=== PATIENT | female | born 1970 | race Caucasian/White ===

== ENCOUNTER → 2019-09-15 11:47 | Outpatient (CLI) | payer OTHER, SELFPAY ==
--- NOTE | 2019-09-15 | DI.RAD.S_ITS ---
PROCEDURE: XR LUMBAR SPINE 2-3V INDICATIONS: Low back pain TECHNIQUE: 3 views of the lumbar spine were acquired. COMPARISON: None. FINDINGS: Bones: No fracture or focal osseous destruction. Mild dextrocurvature. Trace retrolisthesis of L3 on L4 and L4-L5. Multilevel degenerative endplate sclerosis and spurring. Diffuse facet arthropathy. Mild diffuse narrowing of the lumbar disc spaces Soft tissues: Overlying bowel gas pattern is normal. No suspicious soft tissue calcifications. IMPRESSION: 8 Mild lumbar spondylosis and facet arthropathy. Mild dextrocurvature Dictated by: Bean Zabala M.D. on 09/15/2019 at 16:05 Approved by: Bean Zabala M.D. on 09/15/2019 at 16:08
== END ==
PROVIDERS: PCP Nurse Practitioner Gerontology; Visit Provider Acupuncturist
DX: M54.5 Low back pain (principal); M47.816 Spondylosis without myelopathy or radiculopathy, lumbar region
CPT/HCPCS: 72100

== ENCOUNTER → 2020-07-07 08:15 | Outpatient (CLI) | payer OTHER, SELFPAY ==
[2020-07-07 10:24] LABS: Add Manual Diff / Slide Review NO; Basophils Absolute Auto 0 /uL (0-100); Basophils Percent Auto 0.6 % (0-2); Eosinophils Absolute Auto 200 /uL (0-450); Eosinophils Percent Auto 3.3 % (2-4); Hematocrit 37.4 % (36-46); Hemoglobin 12.6 g/dL (12.0-16.0); Lymphocytes Absolute Auto 2200 /uL (1100-4500); Lymphocytes Percent Auto 39.8 % (25-40); Mean Corpuscular HGB Conc 33.6 % (30-36); Mean Corpuscular Hemoglobin 29.4 PG (26-34); Mean Corpuscular Volume 87.6 fL (80-100); Monocytes Absolute Auto 500 /uL (0-900); Monocytes Percent Auto 8.6 % (3-14); Neutrophils Absolute Auto 2700 /uL (1500-7000); Neutrophils Percent Auto 47.7 % (50-75); Platelet Count 289 X10^3/uL (150-400); Red Blood Cell Count 4.27 X10^6/uL (4.0-5.2); Red Cell Distribution Width 13.9 % (11.6-14.8); White Blood Cell Count 5.6 X10^3/uL (4.5-11.0)
[2020-07-07 10:34] LABS: Alanine Aminotransferase 31 IU/L (<35); Albumin 4.5 g/dL (3.5-5.0); Albumin Globulin Ratio 1.4 (1.0-2.8); Alkaline Phosphatase 96 U/L (38-126); Aspartate Aminotransferase 41 IU/L (14-36); BUN Creatinine Ratio 21.6 (6-22); Bilirubin Total 0.4 mg/dL (0.2-1.3); Blood Urea Nitrogen 22 mg/dL (7-17); Calcium 9.8 mg/dL (8.4-10.2); Carbon Dioxide 32 mmol/L (22-32); Chloride 101 mmol/L (98-107); Cholesterol 230 mg/dL (140-199); Estimated Glomerular Filt Rate 57.1 mL/min (>60); Globulin 3.3 g/dL (1.7-4.1); Glucose 90 mg/dL (70-100); HDL Cholesterol 42 mg/dL (40-60); HEMOLYSIS < 15 (0-50); LDL Cholesterol Calculated 156 mg/dL (<100); Potassium 3.9 mmol/L (3.4-5.1); Sodium 139 mmol/L (137-145); Total Protein 7.8 g/dL (6.3-8.2); Triglycerides 162 mg/dL (35-150)
[2020-07-07 11:12] LABS: Thyroid Stimulating Hormone 2.49 uIU/mL (0.47-4.68)
== END ==
PROVIDERS: PCP Nurse Practitioner Family; Referring Provider Nurse Practitioner Family; Visit Provider Nurse Practitioner Family
DX: Z13.6 Encounter for screening for cardiovascular disorders (principal); E06.3 Autoimmune thyroiditis; Z85.72 Personal history of non-Hodgkin lymphomas
CPT/HCPCS: 36415; 80053; 80061; 84443; 85025

== ENCOUNTER → 2020-09-28 10:31 | Outpatient (CLI) | payer OTHER, SELFPAY ==
[2020-09-28 11:53] LABS: Cholesterol 154 mg/dL (140-199); HDL Cholesterol 50 mg/dL (40-60); LDL Cholesterol Calculated 88 mg/dL (<100); Triglycerides 81 mg/dL (35-150)
== END ==
PROVIDERS: PCP Nurse Practitioner Family; Referring Provider Nurse Practitioner Family; Visit Provider Nurse Practitioner Family
DX: Z13.6 Encounter for screening for cardiovascular disorders (principal); E78.2 Mixed hyperlipidemia
CPT/HCPCS: 36415; 80061

== ENCOUNTER → 2021-01-16 12:40 | Outpatient (CLI) | payer OTHER, SELFPAY ==
[2021-01-16 13:49] LABS: Alanine Aminotransferase 23 IU/L (<35); Albumin 4.2 g/dL (3.5-5.0); Albumin Globulin Ratio 1.4 (1.0-2.8); Alkaline Phosphatase 104 U/L (38-126); Aspartate Aminotransferase 25 IU/L (14-36); Bilirubin Total 0.2 mg/dL (0.2-1.3); Blood Urea Nitrogen 16 mg/dL (7-17); Calcium 9.6 mg/dL (8.4-10.2); Carbon Dioxide 34 mmol/L (22-32); Chloride 103 mmol/L (98-107); Cholesterol 151 mg/dL (140-199); Estimated Glomerular Filt Rate > 60.0 mL/min (>60); Glucose 94 mg/dL (70-100); HDL Cholesterol 48 mg/dL (40-60); HEMOLYSIS < 15 (0-50); LDL Cholesterol Calculated 86 mg/dL (<100); Potassium 4.2 mmol/L (3.4-5.1); Sodium 138 mmol/L (137-145); Total Protein 7.2 g/dL (6.3-8.2); Triglycerides 85 mg/dL (35-150)
[2021-01-16 14:17] LABS: Thyroid Stimulating Hormone 1.96 uIU/mL (0.47-4.68)
== END ==
PROVIDERS: PCP Nurse Practitioner Family; Referring Provider Nurse Practitioner Family; Visit Provider Nurse Practitioner Family
DX: E06.3 Autoimmune thyroiditis (principal)
CPT/HCPCS: 36415; 80053; 80061; 84443

== ENCOUNTER → 2021-05-16 09:35 | Outpatient (CLI) | payer OTHER, SELFPAY ==
[2021-05-16 11:58] LABS: Hepatitis B Surface Antigen NEGATIVE s/c (NEGATIVE)
[2021-05-16 12:04] LABS: Urine N gonorrhoeae NOT DETECTED
[2021-05-16 12:19] LABS: Urine Chlamydia NOT DETECTED
[2021-05-16 12:38] LABS: HIV 1 & 2 Ab/Ag 4th Gen Combo NEGATIVE (NEGATIVE); Hep C Virus Ab w/Reflex Quant NEGATIVE s/c (NEGATIVE)
[2021-05-17 09:49] LABS: RPR Screen Non Reactive (Non Reactive)
== END ==
PROVIDERS: PCP Nurse Practitioner Family; Referring Provider Nurse Practitioner Family; Visit Provider Nurse Practitioner Family
DX: Z20.2 Contact with and (suspected) exposure to infections with a predominantly sexual mode of transmission (principal)
CPT/HCPCS: 36415; 86592; 86695; 86696; 86803; 87340; 87389; 87491; 87591

== ENCOUNTER → 2021-06-01 08:50 | Outpatient (CLI) | payer OTHER, SELFPAY ==
--- NOTE | 2021-06-01 08:51 | DI.MG.S_ITS ---
BILATERAL DIGITAL SCREENING MAMMOGRAM 3D/2D WITH CAD: 06/01/2021 CLINICAL: Routine screening. Family history of breast cancer. Comparison is made to exams dated: 03/27/2017 mammogram, 10/25/2017 mammogram, 05/16/2018 mammogram, and 06/11/2019 mammogram - [facility]. There are scattered fibroglandular elements in both breasts. Current study was also evaluated with a Computer Aided Detection (CAD) system. There is new cluster of grouped pleomorphic calcifications in the left breast posterior depth inferior region seen on the mediolateral oblique view only. No other significant masses, calcifications, or other findings are seen in either breast. IMPRESSION: INCOMPLETE: NEEDS ADDITIONAL IMAGING EVALUATION The new cluster of grouped pleomorphic calcifications in the left breast are indeterminate. Additional views with possible ultrasound are recommended. Note that the calcifications are seen on the first david slice and therefore could be related to a skin lesion. Recommend marking any skin lesion in the region before diagnostic mammogram acquisition. This exam was interpreted at Station ID: [id number]. NOTE: For mammograms, a report in lay terms will be sent to the patient. Approximately 15% of breast malignancies will not be visualized mammographically. In the management of a palpable breast mass, a negative mammogram must not discourage biopsy of a clinically suspicious lesion. Electronically Signed By: Zachary Schulte acr/:06/01/2021 09:33:41 letter sent: Additional Imaging Needed ACR BI-RADS Category 0: Incomplete 3340F
== END ==
PROVIDERS: PCP Nurse Practitioner Family; Referring Provider Nurse Practitioner Family; Visit Provider Nurse Practitioner Family
DX: Z12.31 Encounter for screening mammogram for malignant neoplasm of breast (principal); Z80.3 Family history of malignant neoplasm of breast
CPT/HCPCS: 77063; 77067

== ENCOUNTER → 2021-06-20 12:42 | Outpatient (CLI) | payer OTHER, SELFPAY ==
--- NOTE | 2021-06-20 12:43 | DI.MG.S_ITS ---
UNILATERAL LEFT DIGITAL DIAGNOSTIC MAMMOGRAM 3D/2D WITH ADDITIONAL VIEWS: 06/20/2021 CLINICAL: Additional evaluation requested from prior study. Comparison is made to exams dated: 06/01/2021 mammogram - [facility], 06/11/2019 mammogram, and 05/16/2018 mammogram - [facility]. There are scattered fibroglandular elements in left breast. Redemonstration of previously described grouped coarse calcifications in the left breast posterior depth inferior region seen on the mediolateral oblique view only. These were noted on prior imaging of the left breast greater than two years prior and appear stable. They are likely skin calcifications. No other significant masses or calcifications are seen in the breast. IMPRESSION: BENIGN There is no mammographic evidence of malignancy. A 1 year screening mammogram is recommended. Findings and recommendations were conveyed to the patient during today's evaluation. This exam was interpreted at Station ID: [id number]. NOTE: For mammograms, a report in lay terms will be sent to the patient. Approximately 15% of breast malignancies will not be visualized mammographically. In the management of a palpable breast mass, a negative mammogram must not discourage biopsy of a clinically suspicious lesion. Electronically Signed By: Yahir Otoole M.D. aty/:06/20/2021 13:34:28 letter sent: Normal Exam ACR BI-RADS Category 2: Benign Finding(s) 3342F
== END ==
PROVIDERS: PCP Nurse Practitioner Family; Referring Provider Nurse Practitioner Family; Visit Provider Nurse Practitioner Family
DX: R92.8 Other abnormal and inconclusive findings on diagnostic imaging of breast (principal)
CPT/HCPCS: 77065; G0279

== ENCOUNTER → 2021-08-30 15:16 | Outpatient (CLI) | payer OTHER, SELFPAY ==
--- NOTE | 2021-08-30 15:19 | DI.RAD.S_ITS ---
PROCEDURE: XR HIP W PEL IF DONE GRACIELA MIN 4V INDICATIONS: Bilateral hip pain TECHNIQUE: AP pelvis with lateral view(s) of the bilateral hip(s). COMPARISON: None. FINDINGS: No significant degenerative changes of the hips or sacroiliac joints. No suspicious lytic or blastic osseous lesion. No acute osseous finding. Regional soft tissues unremarkable. Moderate the large stool burden noted. IMPRESSION: No bone abnormality to explain hip pain. Consider an MRI for further evaluation. Moderate to large stool burden suggests constipation. Dictated by: Rommel Suarez M.D. on 08/30/2021 at 16:24 Approved by: Rommel Suarez M.D. on 08/30/2021 at 16:26
[2021-08-30 16:40] LABS: Hematocrit 34.8 % (36-46); Hemoglobin 11.4 g/dL (12.0-16.0); Mean Corpuscular HGB Conc 32.8 % (30-36); Mean Corpuscular Hemoglobin 28.7 PG (26-34); Mean Corpuscular Volume 87.6 fL (80-100); Platelet Count 264 X10^3/uL (150-400); Red Blood Cell Count 3.97 X10^6/uL (4.0-5.2); Red Cell Distribution Width 14.9 % (11.6-14.8)
[2021-08-30 17:00] LABS: Alanine Aminotransferase 28 IU/L (<35); Albumin 4.1 g/dL (3.5-5.0); Albumin Globulin Ratio 1.5 (1.0-2.8); Alkaline Phosphatase 73 U/L (38-126); Aspartate Aminotransferase 32 IU/L (14-36); BUN Creatinine Ratio 18.9 (6-22); Bilirubin Total 0.2 mg/dL (0.2-1.3); Blood Urea Nitrogen 18 mg/dL (7-17); Calcium 9.5 mg/dL (8.4-10.2); Carbon Dioxide 34 mmol/L (22-32); Chloride 103 mmol/L (98-107); Estimated Glomerular Filt Rate > 60.0 mL/min (>60); Globulin 2.8 g/dL (1.7-4.1); Glucose 94 mg/dL (70-100); HEMOLYSIS < 15 (0-50); Potassium 3.7 mmol/L (3.4-5.1); Sodium 143 mmol/L (137-145); Total Protein 6.9 g/dL (6.3-8.2)
[2021-08-30 17:13] LABS: Free T4, Direct Thyroxine 1.01 ng/dL (0.78-2.19)
[2021-08-30 17:27] LABS: Thyroid Stimulating Hormone 3.62 uIU/mL (0.47-4.68)
[2021-08-30 17:39] LABS: C-Reactive Protein Quant 1.1 mg/dL (<1.0)
[2021-08-30 17:48] LABS: Erythrocyte Sedimentation Rate 26 MM/HR (0-20)
== END ==
PROVIDERS: PCP Nurse Practitioner Family; Referring Provider Nurse Practitioner Family; Visit Provider Nurse Practitioner Family
DX: R00.2 Palpitations (principal); Z00.00 Encounter for general adult medical examination without abnormal findings; G45.3 Amaurosis fugax
CPT/HCPCS: 36415; 73522; 80053; 84439; 84443; 85027; 85651; 86140

== ENCOUNTER → 2021-09-11 08:15 | Outpatient (CLI) | payer OTHER, SELFPAY ==
[2021-09-11 11:30] LABS: COVID19 -Nasal RAPID Negative (Negative)
== END ==
PROVIDERS: PCP Nurse Practitioner Family; Visit Provider Physician Assistant
DX: Z01.812 Encounter for preprocedural laboratory examination (principal); Z20.822 Contact with and (suspected) exposure to COVID-19
CPT/HCPCS: 87635; C9803

== ENCOUNTER → 2021-09-14 13:34 | Outpatient (CLI) | payer OTHER, SELFPAY ==
--- NOTE | 2021-10-04 11:17 | PM.CARDMON.1 ---
Stove Mounter Report Referral & Results Date Patient Seen: 09/14/21 Requesting provider: Ron Cox Indication: Palpitations Duration of monitoring (days): 7 Diary information: There were 6 patient triggered events and 10 patient diary entries Patient triggered events were associated variably with sinus rhythm and PVCs Patient diary events were associated variably with (within 45 seconds) sinus rhythm, PACs, PVCs, and ventricular trigeminy Data: Minimum heart rate identified was 54 beats per minute at 02:54 on 09/18/2021 Maximum heart rate was 164 beats per minute at 15:48 on 09/19/2021 Less than 1% of identified beats were ventricular or supraventricular ectopic in origin, which would classify them as rare. There was 1 run of possible monomorphic ventricular tachycardia verses an accelerated idioventricular rhythm that consisted of 5 beats at a rate of 110 beats per minute Impression: Essentially normal 7 day air sampling and monitoring Rare PACs and PVCs without clear correlation with patient reported symptoms Single run of probable idioventricular rhythm as above Clinical correlation suggested
== END ==
PROVIDERS: PCP Nurse Practitioner Family; Referring Provider Nurse Practitioner Family; Visit Provider Nurse Practitioner Family
DX: R00.2 Palpitations (principal)
CPT/HCPCS: 93242; 93244

== ENCOUNTER → 2021-09-18 11:12 | Outpatient (CLI) | payer OTHER, SELFPAY ==
[2021-09-18 16:18] LABS: COVID19 -Nasal RAPID Negative (Negative)
== END ==
PROVIDERS: PCP Nurse Practitioner Family; Visit Provider Nurse Practitioner Family
DX: Z20.822 Contact with and (suspected) exposure to COVID-19 (principal); Z01.812 Encounter for preprocedural laboratory examination
CPT/HCPCS: 87635; C9803

== ENCOUNTER → 2021-09-19 14:47 | Outpatient (CLI) | payer OTHER, SELFPAY ==
--- NOTE | 2021-09-19 17:50 | DI.NM.S_ITS ---
DATE OF SERVICE: PROCEDURE: Exercise stress test. DATE OF STUDY: 09/19/2021 INDICATIONS: Palpitations. EXERCISE STRESS TEST: The patient underwent exercise stress test under the supervision of an attending staff. She walked on Joe protocol for 6 minutes and 0 seconds, achieved 98 percent of target heart rate with normal blood pressure response. Baseline blood pressure 132/90 mmHg. Peak blood pressure 170/90 mmHg. Maximum heart rate 164 beats per minute. The patient achieved 6.1 METS of workload and functional aerobic impairment positive 21 percent. The patient had mild dull chest discomfort as well as off and on sharp chest discomfort which lasted about 10 seconds. Resting EKG revealed sinus rhythm, possible LVH, T-wave inversion in lateral leads. During stress, no convincing new ischemic changes seen. No significant arrhythmias seen. CONCLUSION: Exercise stress test is negative for inducible ischemia. Normal hemodynamic response. Diminished exercise capacity. Functional aerobic impairment positive 21 percent. No significant arrhythmias seen. Atypical chest discomfort during exercise. Clinical correlation is recommended. Irma Delaney - KEVEN/nazanin/emma doc#: [id number]/job#: [id number] dd: 09/19/2021 17:21:00 dt: 09/19/2021 17:31:00 DICTATING MD/COPIES TO: Alfredo Wilde MD COPIES MNE: MAXIMO;
== END ==
PROVIDERS: PCP Nurse Practitioner Family; Referring Provider Nurse Practitioner Family; Visit Provider Nurse Practitioner Family
DX: R00.2 Palpitations (principal)
CPT/HCPCS: 93017

== ENCOUNTER → 2021-09-29 13:33 | Outpatient (CLI) | payer OTHER, SELFPAY ==
--- NOTE | 2021-09-29 13:35 | DI.MRI.S_ITS ---
PROCEDURE: MR HEAD/BRAIN WO CON INDICATIONS: intermittent blindness with other intraocular changes TECHNIQUE: Non-contrast axial T1 spin echo, axial T2 fast spin echo, sagittal and axial FLAIR, coronal T2 fast spin echo, axial gradient echo, axial diffusion and ADC through the brain. COMPARISON: None. FINDINGS: Image quality: Excellent. CSF spaces: Ventricles appear symmetric in size and shape. Basal cisterns are patent. No extra-axial fluid collections. Brain: No intracranial bleeds or mass effects. There is cerebral volume loss for age. Few scattered periventricular and deep white matter chronic small vessel ischemic changes. Brainstem appears normal. Diffusion-weighted images show no acute ischemic insults. No chronic ischemic insults. Normal intravascular flow voids are present. Skull and face: Calvarial bone marrow is normal in signal. Orbits are normal. Sinuses: Sinuses and mastoids are clear. IMPRESSION: No acute intracranial signal abnormality. No evidence of acute ischemia. Few small white matter changes, probably represent chronic microvascular ischemic disease, versus statistically less likely demyelination or other infectious, inflammatory, neurodegenerative etiology, technically nonspecific. Dictated by: Bean Zabala M.D. on 09/29/2021 at 15:23 Approved by: Bean Zabala M.D. on 09/29/2021 at 15:33
== END ==
PROVIDERS: PCP Nurse Practitioner Family; Referring Provider Nurse Practitioner Family; Visit Provider Nurse Practitioner Family
DX: G45.3 Amaurosis fugax (principal); H35.00 Unspecified background retinopathy
CPT/HCPCS: 70551

== ENCOUNTER → 2021-11-23 11:47 | Outpatient (CLI) | payer OTHER, MEDICAID, SELFPAY ==
--- NOTE | 2021-11-23 11:49 | DI.US.S_ITS ---
PROCEDURE: US CAROTID DOPPLER BI INDICATIONS: AMAUROSIS FUGAX TECHNIQUE: Color and pulse Doppler interrogation was performed of both carotid systems, with image documentation and velocity measurements. COMPARISON: None. FINDINGS: Stenosis calculations are based on SRU (Society of Radiologists in Ultrasound) criteria. Right side: Brachial blood pressure: 144/94 mm Hg. Common carotid artery peak systolic velocity: 125 cm/sec. Internal carotid artery peak systolic velocity: 96 cm/sec. Internal carotid artery end diastolic velocity: 34 cm/sec. External carotid artery peak systolic velocity: 66 cm/sec. ICA/CCA peak systolic ratio: 0.8 . Delacruz scale imaging description: Mild scattered plaque. Solid right thyroid nodule incidentally noted. Percent internal carotid artery stenosis: Less than 50% . Vertebral artery: Flow direction is antegrade. Left side: Brachial blood pressure: 150/100 mm Hg. Common carotid artery peak systolic velocity: 95 cm/sec. Internal carotid artery peak systolic velocity: 94 cm/sec. Internal carotid artery end diastolic velocity: 26 cm/sec. External carotid artery peak systolic velocity: 72 cm/sec. ICA/CCA peak systolic ratio: 1.1 . Delacruz scale imaging description: Moderate scattered plaque. Percent internal carotid artery stenosis: Less than 50% . Vertebral artery: Flow direction is antegrade. IMPRESSION: 1. Less than 50% bilateral internal carotid artery stenosis. 2. Right thyroid nodule incidentally noted. When clinically feasible, recommend formal thyroid ultrasound for further characterization. 3. Hypertension at time of examination. Dictated by: Yehuda Velazquez [facility] Interpreted: Iam Melara MD on 11/23/2021 at 12:35 Transcribed by: [place] on 11/23/2021 at 12:38 Approved by: Iam Melara M.D. on 11/23/2021 at 12:54
== END ==
PROVIDERS: Family Provider Nurse Practitioner Family; PCP Nurse Practitioner Family; Referring Provider Nurse Practitioner Family; Visit Provider Nurse Practitioner Family
DX: G45.3 Amaurosis fugax (principal); E04.1 Nontoxic single thyroid nodule
CPT/HCPCS: 93880

== ENCOUNTER → 2021-12-28 09:02 | Outpatient (CLI) | payer OTHER, MEDICAID, SELFPAY ==
--- NOTE | 2021-12-28 09:03 | DI.US.S_ITS ---
PROCEDURE: US THYROID INDICATIONS: NODULE TECHNIQUE: Real-time scanning was performed of the thyroid gland, with image documentation. COMPARISON: [facility], US, US CAROTID DOPPLER , 11/23/2021, 12:03. FINDINGS: Right: Thyroid lobe measures 4.8 x 2 x 1.5 cm, and is homogeneous in echotexture. Left: Thyroid lobe measures 4 x 1.6 x 1.4 cm, and is homogenous in echotexture. Isthmus: 0.2 cm thick. Nodule number: 1 Location: Left mid posterior Size: 1.1 x 1 x 0.7 cm. Composition: Mixed solid and cystic Echogenicity: Hypoechoic Shape: wider than tall. Margins: Smooth Echogenic foci: None Total points: 3 ACR TI-RADS category: TR 3, mildly suspicious Nodule number: 2 Location: Right mid Size: 1.9 x 1.5 x 1.3 cm. Composition: Solid Echogenicity: Isoechoic Shape: wider than tall. Margins: Ill-defined Echogenic foci: None Total points: 3 ACR TI-RADS category: TR 3, mildly suspicious Nodule number: 3 Location: Right mid anterior Size: 0.7 x 0.6 x 0.4 cm. Composition: Solid Echogenicity: Hypoechoic Shape: wider than tall. Margins: Smooth Echogenic foci: None Total points: 4 ACR TI-RADS category: TR 4, moderately suspicious IMPRESSION: Right mid thyroid nodule measuring 1.9 cm. TR 3, mildly suspicious. Recommend follow-up thyroid ultrasound in 1 year. ACR TI-RADS definitions and recommendations: TI-RADS 1 (benign): 0 points. FNA not needed. TI-RADS 2 (not suspicious): 2 points. FNA not needed. TI-RADS 3 (mildly suspicious): 3 points. * FNA if 2.5 cm or larger, follow up if 1.5 cm or larger (at 1, 3, and 5 years). TI-RADS 4 (moderately suspicious): 4-6 points. * FNA if 1.5 cm or larger, follow up if 1 cm or larger (at 1, 2, 3, and 5 years). TI-RADS 5 (highly suspicious): 7 points or more. * FNA if 1 cm or larger, follow up if 0.5 cm or larger (every year for 5 years). Dictated by: César Khoury M.D. on 12/28/2021 at 10:13 Approved by: César Khoury M.D. on 12/28/2021 at 10:29
== END ==
PROVIDERS: Family Provider Nurse Practitioner Family; PCP Nurse Practitioner Family; Referring Provider Nurse Practitioner Family; Visit Provider Nurse Practitioner Family
DX: E04.2 Nontoxic multinodular goiter (principal)
CPT/HCPCS: 76536

== ENCOUNTER → 2022-01-08 11:04 | Outpatient (CLI) | payer OTHER, MEDICAID, SELFPAY ==
[2022-01-08 11:20] LABS: Hematocrit 32.7 % (36-46); Hemoglobin 10.9 g/dL (12.0-16.0); Mean Corpuscular HGB Conc 33.4 % (30-36); Mean Corpuscular Hemoglobin 28.1 PG (26-34); Platelet Count 275 X10^3/uL (150-400); Red Blood Cell Count 3.89 X10^6/uL (4.0-5.2); Red Cell Distribution Width 14.4 % (11.6-14.8)
[2022-01-08 11:49] LABS: Alanine Aminotransferase 30 IU/L (<35); Albumin 4.2 g/dL (3.5-5.0); Albumin Globulin Ratio 1.4 (1.0-2.8); Alkaline Phosphatase 75 U/L (38-126); Aspartate Aminotransferase 30 IU/L (14-36); Bilirubin Total 0.4 mg/dL (0.2-1.3); Blood Urea Nitrogen 18 mg/dL (7-17); Calcium 9.6 mg/dL (8.4-10.2); Carbon Dioxide 32 mmol/L (22-32); Chloride 105 mmol/L (98-107); Cholesterol 137 mg/dL (140-199); Estimated Glomerular Filt Rate 58.2 mL/min (>60); Globulin 2.9 g/dL (1.7-4.1); Glucose 96 mg/dL (70-100); HDL Cholesterol 50 mg/dL (40-60); HEMOLYSIS < 15 (0-50); LDL Cholesterol Calculated 72 mg/dL (<100); Potassium 3.8 mmol/L (3.4-5.1); Sodium 141 mmol/L (137-145); Total Protein 7.1 g/dL (6.3-8.2); Triglycerides 77 mg/dL (35-150)
[2022-01-08 13:01] LABS: Free T4, Direct Thyroxine 1.22 ng/dL (0.78-2.19)
[2022-01-08 13:15] LABS: Thyroid Stimulating Hormone 1.64 uIU/mL (0.47-4.68)
== END ==
PROVIDERS: Family Provider Nurse Practitioner Family; PCP Nurse Practitioner Family; Referring Provider Nurse Practitioner Family; Visit Provider Nurse Practitioner Family
DX: E06.3 Autoimmune thyroiditis (principal); E78.2 Mixed hyperlipidemia; F32.1 Major depressive disorder, single episode, moderate; F41.9 Anxiety disorder, unspecified; G45.3 Amaurosis fugax; Z00.00 Encounter for general adult medical examination without abnormal findings; Z13.6 Encounter for screening for cardiovascular disorders
CPT/HCPCS: 36415; 80053; 80061; 84439; 84443; 85027

== ENCOUNTER 2022-01-08 11:15 | Outpatient (RCR) | payer OTHER, MEDICAID, SELFPAY ==
--- NOTE | 2021-10-09 16:35 | PT.OIE ---
Current Diagnoses Pain in unspecified hip (10/09/21) Postural kyphosis, thoracic region (10/09/21) Muscle weakness (generalized) (10/09/21) Other abnormalities of gait and mobility (10/09/21) Past Medical History (Last Updated 09/13/21 @ 13:51 by NAVID Castro) Acquired autoimmune hypothyroidism (2017) Allergies Amaurosis fugax, both eyes (08/2020) Anxiety (~1999) Autism Cataracts, bilateral (~1998) Chronic back pain (~2009) Deep vein thrombosis (~1992) Depression (2009) Eczema (~2017) Encounter for routine gynecological examination (05/16/21) Encounter for wellness examination in adult (05/16/21) Hip pain History of biopsy (~1993) History of laparoscopy (~1992) History of non-Hodgkin's lymphoma (1994) History of suicide attempt (2009) HSV-2 seropositive Intermittent palpitations (07/2021) Intra-ventricular conduction delay (08/2021) Lymphedema Lymphoma (~1995) Menopause (~1995) Mixed hyperlipidemia (06/2020) Possible exposure to STD PTSD (post-traumatic stress disorder) (~1996) Scoliosis (~1971) Vision changes (08/2020) Past Surgical History (Last Updated 01/14/21 @ 19:17 by Jessenia Edwards) Anesthesia History of biopsy (~1993) History of laparoscopy (~1992) Visit Care Team Role Provider Type NAVID Castro Attending Provider 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 Family Provider Primary Care Provider Referring Provider Specialty: Family Practice Address: [address] [place] [address] Email: [email or web address] Physical Therapy Initial Evaluation PT-OP-A Visit Information Start: 10/09/21 12:17 Freq: Status: Active Protocol: Document 10/09/21 13:35 LRN (Rec: 10/09/21 17:43 LRN [id number]) Out-Patient Physical Therapy Visit Information Visit Information Visit Type Initial Evaluation Visit Start Time 13:35 Visit Stop Time 14:26 Total Visit Minutes 51 Visit Number 1 Evaluation Information Evaluation Date 10/09/21 Precautions Precautions Possible tape allergy. 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 Pt has residual back pain from chemo & radiation therapy. Medication controlled depression/anxiety, hypothyroid, arthritis of the knees. PT-OP-B Current Condition Start: 10/09/21 12:17 Freq: Status: Active Protocol: Document 10/09/21 13:35 LRN (Rec: 10/09/21 17:43 LRN [id number]) Current Condition History of Current Condition Onset Date 08/24/21 (end of Jul) Current Complaints Pain in both hips after repetitive activity and long walks. History of Current Condition When walking (2 miles 3 days/ week), both hips start hurting . With sit rest the pain goes away. 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 Had lymphadema therapy in [place] for it (while in college). Prior Treatments and Tests X-ray, pt states it was negative for bursitis. 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 Brain scan was negative for MS . Has done a heart monitor assessment, and treadmill stress test. Appt 11/06/21 with [facility] (Dr. Martins from [facility]). 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 PMH: Breast reduction therapy 8yrs ago, Arthritis in knees, Anxiety/Depression controlled by meds, Hypothyroidism. Non-Hodgkins Lymphoma in L groin [id number]. Treatment Goals Patient/Caregiver Goals Pt goal is to manage the pain or get rid of it, do things to help it. 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 Prior Functional Status Baseline Function- ADL's Independent Baseline Function- Mobility Independent Baseline Function- Gait For past 3 yrs walked 2 miles without pain. Baseline Function- Other Wears compression stockings during walk to control onset of numbness in the L foot ( location of Lymphedema and cancer in groin). Current Functional Impairments (Reported) Functional Limitations- ADL's Onset of bilateral hip pain with laundry, cleaning, static standing > 20' Functional Limitations- Mobility/Gait Can walk 3/4 mile on flat ground before bilateral hip pain starts (indicating pain across the low back at the sacral level). Functional Limitations- Recreation/ Pain with gentle yoga Hobbies Functional Limitations- Other Pain with laundry (reaching up /down for clothes), volunteering 2 hours for [employer] ( sweeping and picking up objects). Personal Factors Other Personal Factors That May Effect Has daughter who is Autistic, Therapy/Recovery and is her caregiver, requiring housecleaning and attendance sitting with her. Lives in [place] and has onset of back pain by the time she drives to [employer]. L foot sensation impaired (in area of lymphedema) since tumor wrapped around artery in L groin. Arthritis in knees. PT-OP-C Subjective Start: 10/09/21 12:17 Freq: Status: Active Protocol: Document 10/09/21 13:35 LRN (Rec: 10/09/21 17:43 LRN [id number]) Patient Questionnaires Lower Extremity Functional Scale LEFS Score 50 LEFS Impairment 20 to 39% Impaired (Score 48- 62) OP-PT Pain Assessment Pain Assessment Grid Paper Pain Assessment Grid Completed Yes Location Low back Pain Location Details Across low back at sacral level Intensity 8 Scale Used Numeric (0 - 10) Description Pressure,Sharp Description- Other Pn 2-8, pain constant at 2/10 Frequency Constant Pain Aggravating Factors Activity,Standing,Bending, Lifting Pain Alleviating Factors Heat,Medication,Lying Supine, Sitting PT-OP-G Mobility & Gait Start: 10/09/21 12:17 Freq: Status: Active Protocol: Document 10/09/21 13:35 LRN (Rec: 10/09/21 17:43 LRN [id number]) OP Gait Assessment Gait Gait Assistance Required: Independent Able to Maintain Weight Bearing Status Yes During Gait Assistive Devices Assistive Device None Comments Gait Comments Pt notes normal gait. PT-OP-H Neuro Start: 10/09/21 12:17 Freq: Status: Active Protocol: Document 10/09/21 13:35 LRN (Rec: 10/09/21 17:43 LRN [id number]) Sensation Evaluation Gross Sensation Gross Sensation WNL Location Details Left Foot Light Touch Impaired Sharp/Dull Intact/Normal Deep Pressure Intact/Normal Hot/Cold Intact/Normal PT-OP-J Posture/Palpation/Skin Start: 10/09/21 12:17 Freq: Status: Active Protocol: Document 10/09/21 13:35 LRN (Rec: 10/09/21 17:43 LRN [id number]) Posture Evaluation Position Standing Evaluation View all positions Head/C-Spine Posture Forward Head T-Spine Posture Increased Kyphosis Shoulder Posture (L) Elevated Pelvis Posture (L) Iliac Crest Superior Ankle/Foot Posture (L) Forefoot Eversion,(R) Forefoot Eversion Comments Posture Comments Varus of lower legs, slight scoliosis towards bottom of spine (apex is left in upper curve, right in lower curve, reversal at T/L junction). Palpation Assessment Location SIJ Palpation Location R side - decreased mobility for PA and inferior glide. Palpation Findings Soft Tissue Tightness, Tenderness PT-OP-K Range of Motion Start: 10/09/21 12:17 Freq: Status: Active Protocol: Document 10/09/21 13:35 LRN (Rec: 10/09/21 17:43 LRN [id number]) Lumbar Spine Range of Motion Lumbar Spine Active Degrees Testing Position Standing Flexion 90 Extension 18 Rotation Left 25 Rotation Right 25 Lateral Flexion Left 12 Lateral Flexion Right 10 ROM Limitations Pain Comments Trunk flex 90 deg's with 45 deg's hip flexion. Trunk Ext 18 deg's with 3 deg' s hip extension. SB left caused discomfort across sacral area. Rotation left cause R SI pain. Hip Goniometric Range of Motion Hip Right Passive Testing Position Supine Straight Leg Raise 80 Abduction 45 Internal Rotation 25 External Rotation 75 Left Passive Testing Position Supine Straight Leg Raise 85 Abduction 45 Internal Rotation 35 External Rotation 75 Knee Goniometric Range of Motion Knee Right Knee ROM WFL Yes Patient Position Supine Comments WNL Left Knee ROM WFL Yes Patient Position Supine Comments WNL PT-OP-L Special Tests Start: 10/09/21 12:17 Freq: Status: Active Protocol: Document 10/09/21 13:35 LRN (Rec: 10/09/21 17:43 LRN [id number]) Special Tests Hip Special Tests Posterior Labral Test Test Results Negative bilaterally Straight Leg Raise Test Results Negative bilaterally Scour Test Test Results Negative bilaterally JACKIE Test Results Negative bilaterally PT-OP-M Strength Start: 10/09/21 12:17 Freq: Status: Active Protocol: Document 10/09/21 13:35 LRN (Rec: 10/09/21 17:43 LRN [id number]) Trunk Strength Trunk Manual Muscle Testing Testing Position Supine Core Stabilization WNL Hip Strength Hip Manual Muscle Testing Right Flexion (L2) 5 Normal Extension (S1) 5 Normal Abduction 5 Normal Adduction 3- Fair- External Rotation 5 Normal Internal Rotation 4+ Good+ Left Flexion (L2) 5 Normal Extension (S1) 5 Normal Abduction 5 Normal Adduction 5 Normal External Rotation 5 Normal Internal Rotation 5 Normal Knee Strength Knee Manual Muscle Testing Right Flexion (S2) 5 Normal Extension (L3) 5 Normal Left Flexion (S2) 5 Normal Extension (L3) 5 Normal PT-OP-Q Treatments Start: 10/09/21 12:17 Freq: Status: Active Protocol: Document 10/09/21 13:35 LRN (Rec: 10/09/21 17:43 LRN [id number]) Self-Care/Home Management Treatment Education Patient Education Home Exercise Program Other Education Discussed results of evaluation, goals, and plan of care (POC). Pt agreeable to goals and POC. Activities Self-Care/Home Management Activities HEP: I/S pt in sitting Piriformis stretch PT-OP-T Assessment and Plan Start: 10/09/21 12:17 Freq: Status: Active Protocol: Document 10/09/21 13:35 LRN (Rec: 10/09/21 17:43 LRN [id number]) Physical Therapy Assessment Rehab Potential Rehabilitation Potential Excellent Evaluation Complexity Number of Personal Factors/Comorbidities 3 or More Number of Body Systems Impaired 4 or More Clinical Presentation at Evaluation Evolving Impairments Impairments Activity Tolerance,Gait,Pain, Posture,ROM,Soft Tissue Mobility,Strength Goals Three Impairment Decreased function (LEFS score of 50 (20-39% impaired)) Short Term Goal (STG) Improve function with pt able to do laundry (reaching up/ down for clothes) and improve LEFS score of no less than 55 STG Duration 11/27/20 Penitentiary Goal (LTG) Pt will be able to do gentle yoga and volunteer 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 LTG Duration 01/07/22 Two Impairment Bilateral Hip/Low Back Pain rated 8/10 Short Term Goal (STG) Decrease lynne hip/low back pain to no greater than 4/10. STG Duration 11/27/20 Penitentiary Goal (LTG) Pt will be able to manage her lynne hip/LB pain to a tolerable level (or alleviate the pain) with proper posturing and exercises. LTG Duration 01/07/22 One Impairment Lacks appropriate self care HEP Short Term Goal (STG) Pt educated in proper body mechanics and modality use to help decrease pain. STG Duration 10/20/21 Penitentiary Goal (LTG) Pt will be independent on a self care HEP of low back and hip stretches/strengthening exercises. LTG Duration 01/07/22 Assessment Summary Assessment Pt presents with soft tissue dysfunction of the R SIJ. She has R sacral stiffness with PA and inferior glide. She has postural changes that with prolonged may be resulting in biateral lower lumbar/sacral pain. She has SIJ instability and appears to have good core strength. R Hip IR and AD is slightly weak. She has decreased R >L hip mobility for PSLR & hip IR, decreased bilaterally with ER mobility. Active trunk R SB is decreased due to R lateral trunk pain. The pt will benefit from skilled physical therapy to achieve the above stated goals. 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 Clarify allergies (tape/Latex) , Check for open pattern ( check for shear of sacrum and recheck for R sacral tight in PA and inferior glide). Check: Log roll, Stinchfield Resisted hip flexion, Mukesh Test HEP: ROM: R hip PSLR & IR stretch, bilateral Fig 4 (ER), Trunk SB R>L & lynne Rot; Strengthening: R hip IR. Postural awareness training against wall & on TM. Body Mechanics training.
--- NOTE | 2021-10-09 16:36 | PT.OPPOC ---
Physical, Occupational & Speech Therapy At [facility] Current Diagnoses Pain in unspecified hip (10/09/21) Postural kyphosis, thoracic region (10/09/21) Muscle weakness (generalized) (10/09/21) Other abnormalities of gait and mobility (10/09/21) Visit Care Team Role Provider Type NAVID Castro Attending Provider Advanced Ways Operator Family Provider Primary Care Provider Referring Provider Specialty: Family Practice Address: [address] [place] [address], [id number] Email: [email or web address] Plan Of Care PT-OP-T Assessment and Plan Start: 10/09/21 12:17 Freq: Status: Active Protocol: Document 10/09/21 13:35 LRN (Rec: 10/09/21 17:43 LRN [id number]) Physical Therapy Assessment Rehab Potential Rehabilitation Potential Excellent Evaluation Complexity Number of Personal Factors/Comorbidities 3 or More Number of Body Systems Impaired 4 or More Clinical Presentation at Evaluation Evolving Impairments Impairments Activity Tolerance,Gait,Pain, Posture,ROM,Soft Tissue Mobility,Strength Goals Three Impairment Decreased function (LEFS score of 50 (20-39% impaired)) Short Term Goal (STG) Improve function with pt able to do laundry (reaching up/ down for clothes) and improve LEFS score of no less than 55 STG Duration 11/27/20 Residential Goal (LTG) Pt will be able to do gentle yoga and volunteer 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 LTG Duration 01/07/22 Two Impairment Bilateral Hip/Low Back Pain rated 8/10 Short Term Goal (STG) Decrease lynne hip/low back pain to no greater than 4/10. STG Duration 11/27/20 Pinking Sewing Machine Operator Goal (LTG) Pt will be able to manage her lynne hip/LB pain to a tolerable level (or alleviate the pain) with proper posturing and exercises. LTG Duration 01/07/22 One Impairment Lacks appropriate self care HEP Short Term Goal (STG) Pt educated in proper body mechanics and modality use to help decrease pain. STG Duration 10/20/21 Residential Goal (LTG) Pt will be independent on a self care HEP of low back and hip stretches/strengthening exercises. LTG Duration 01/07/22 Assessment Summary Assessment Pt presents with soft tissue dysfunction of the R SIJ. She has R sacral stiffness with PA and inferior glide. She has postural changes that with prolonged may be resulting in biateral lower lumbar/sacral pain. She has SIJ instability and appears to have good core strength. R Hip IR and AD is slightly weak. She has decreased R >L hip mobility for PSLR & hip IR, decreased bilaterally with ER mobility. Active trunk R SB is decreased due to R lateral trunk pain. The pt will benefit from skilled physical therapy to achieve the above stated goals. 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 Clarify allergies (tape/Latex) , Check for open pattern ( check for shear of sacrum and recheck for R sacral tight in PA and inferior glide). Check: Log roll, Stinchfield Resisted hip flexion, Mukesh Test HEP: ROM: R hip PSLR & IR stretch, bilateral Fig 4 (ER), Trunk SB R>L & lynne Rot; Strengthening: R hip IR. Postural awareness training against wall & on TM. Body Mechanics training. Plan of Care Dates Plan of Care Start Date 10/09/21 Plan of Care End Date 01/07/22 Electronically Signed by: Ana Serna, PT 10/10/21 [id number] Please Sign and Return: I have reviewed this Plan of Care and certify that the skilled therapy services above are required to meet the patient?s needs. Physician Signature Date Printed Name and Credentials Clinical Instructor Signature Printed Name and Credentials
--- NOTE | 2021-10-12 10:10 | PT.OTN ---
Current Diagnoses Pain in unspecified hip (10/12/21) Postural kyphosis, thoracic region (10/12/21) Muscle weakness (generalized) (10/12/21) Other abnormalities of gait and mobility (10/12/21) Physical Therapy Treatment Note PT-OP-A Visit Information Start: 10/09/21 12:17 Freq: Status: Active Protocol: Document 10/12/21 09:04 LRN (Rec: 10/12/21 09:47 LRN [id number]) Out-Patient Physical Therapy Visit Information Visit Information Visit Type Treatment Note Visit Start Time 09:04 Visit Stop Time 09:42 Total Visit Minutes 38 Visit Number 2 Evaluation Information Evaluation Date 10/09/21 Precautions Precautions Latex allergy. 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 Pt has residual back pain from chemo & radiation therapy. Medication controlled depression/anxiety, hypothyroid, arthritis of the knees. PT-OP-B Current Condition Start: 10/09/21 12:17 Freq: Status: Active Protocol: Document 10/09/21 13:35 LRN (Rec: 10/09/21 17:43 LRN [id number]) Current Condition History of Current Condition Onset Date 08/24/21 (end of Jul) Current Complaints Pain in both hips after repetitive activity and long walks. History of Current Condition When walking (2 miles 3 days/ week), both hips start hurting . With sit rest the pain goes away. 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 Had lymphadema therapy in [place] for it (while in college). Prior Treatments and Tests X-ray, pt states it was negative for bursitis. Future Testing and Treatments Planned None Developmental History Developmental History Going to medical specialist. 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 Brain scan was negative for MS . Has done a heart monitor assessment, and treadmill stress test. Appt 11/06/21 with [employer] (Dr. Martins from [facility]). 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 PMH: Breast reduction therapy 8yrs ago, Arthritis in knees, Anxiety/Depression controlled by meds, Hypothyroidism. Non-Hodgkins Lymphoma in L groin [phone]. Treatment Goals Patient/Caregiver Goals Pt goal is to manage the pain or get rid of it, do things to help it. 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 Prior Functional Status Baseline Function- ADL's Independent Baseline Function- Mobility Independent Baseline Function- Gait For past 3 yrs walked 2 miles without pain. Baseline Function- Other Wears compression stockings during walk to control onset of numbness in the L foot ( location of Lymphedema and cancer in groin). Current Functional Impairments (Reported) Functional Limitations- ADL's Onset of bilateral hip pain with laundry, cleaning, static standing > 20' Functional Limitations- Mobility/Gait Can walk 3/4 mile on flat ground before bilateral hip pain starts (indicating pain across the low back at the sacral level). Functional Limitations- Recreation/ Pain with gentle yoga Hobbies Functional Limitations- Other Pain with laundry (reaching up /down for clothes), volunteering 2 hours for [employer] ( sweeping and picking up objects). Personal Factors Other Personal Factors That May Effect Has daughter who is Autistic, Therapy/Recovery and is her caregiver, requiring housecleaning and attendance sitting with her. Lives in [place] and has onset of back pain by the time she drives to [place]. L foot sensation impaired (in area of lymphedema) since tumor wrapped around artery in L groin. Arthritis in knees. PT-OP-C Subjective Start: 10/09/21 12:17 Freq: Status: Active Protocol: Document 10/12/21 09:04 LRN (Rec: 10/12/21 09:47 LRN [id number]) OP-PT Subjective Patient Comments Patient Comments Woke with hips hurting a little bit. Allergy to latex and Bendryl. PT-OP-G Mobility & Gait Start: 10/09/21 12:17 Freq: Status: Active Protocol: Document 10/09/21 13:35 LRN (Rec: 10/09/21 17:43 LRN [id number]) OP Gait Assessment Gait Gait Assistance Required: Independent Able to Maintain Weight Bearing Status Yes During Gait Assistive Devices Assistive Device None Comments Gait Comments Pt notes normal gait. PT-OP-H Neuro Start: 10/09/21 12:17 Freq: Status: Active Protocol: Document 10/09/21 13:35 LRN (Rec: 10/09/21 17:43 LRN [id number]) Sensation Evaluation Gross Sensation Gross Sensation WNL Location Details Left Foot Light Touch Impaired Sharp/Dull Intact/Normal Deep Pressure Intact/Normal Hot/Cold Intact/Normal PT-OP-J Posture/Palpation/Skin Start: 10/09/21 12:17 Freq: Status: Active Protocol: Document 10/09/21 13:35 LRN (Rec: 10/09/21 17:43 LRN [id number]) Posture Evaluation Position Standing Evaluation View all positions Head/C-Spine Posture Forward Head T-Spine Posture Increased Kyphosis Shoulder Posture (L) Elevated Pelvis Posture (L) Iliac Crest Superior Ankle/Foot Posture (L) Forefoot Eversion,(R) Forefoot Eversion Comments Posture Comments Varus of lower legs, slight scoliosis towards bottom of spine (apex is left in upper curve, right in lower curve, reversal at T/L junction). Palpation Assessment Location SIJ Palpation Location R side - decreased mobility for PA and inferior glide. Palpation Findings Soft Tissue Tightness, Tenderness PT-OP-K Range of Motion Start: 10/09/21 12:17 Freq: Status: Active Protocol: Document 10/09/21 13:35 LRN (Rec: 10/09/21 17:43 LRN [id number]) Lumbar Spine Range of Motion Lumbar Spine Active Degrees Testing Position Standing Flexion 90 Extension 18 Rotation Left 25 Rotation Right 25 Lateral Flexion Left 12 Lateral Flexion Right 10 ROM Limitations Pain Comments Trunk flex 90 deg's with 45 deg's hip flexion. Trunk Ext 18 deg's with 3 deg' s hip extension. SB left caused discomfort across sacral area. Rotation left cause R SI pain. Hip Goniometric Range of Motion Hip Right Passive Testing Position Supine Straight Leg Raise 80 Abduction 45 Internal Rotation 25 External Rotation 75 Left Passive Testing Position Supine Straight Leg Raise 85 Abduction 45 Internal Rotation 35 External Rotation 75 Knee Goniometric Range of Motion Knee Right Knee ROM WFL Yes Patient Position Supine Comments WNL Left Knee ROM WFL Yes Patient Position Supine Comments WNL PT-OP-L Special Tests Start: 10/09/21 12:17 Freq: Status: Active Protocol: Document 10/12/21 09:04 LRN (Rec: 10/12/21 09:47 LRN [id number]) Special Tests Hip Special Tests Thigh Thrust Test Test Results - Bilaterally Gaenslen Test Test Results + Right JACKIE Test Results - Bilaterally PT-OP-M Strength Start: 10/09/21 12:17 Freq: Status: Active Protocol: Document 10/09/21 13:35 LRN (Rec: 10/09/21 17:43 LRN [id number]) Trunk Strength Trunk Manual Muscle Testing Testing Position Supine Core Stabilization WNL Hip Strength Hip Manual Muscle Testing Right Flexion (L2) 5 Normal Extension (S1) 5 Normal Abduction 5 Normal Adduction 3- Fair- External Rotation 5 Normal Internal Rotation 4+ Good+ Left Flexion (L2) 5 Normal Extension (S1) 5 Normal Abduction 5 Normal Adduction 5 Normal External Rotation 5 Normal Internal Rotation 5 Normal Knee Strength Knee Manual Muscle Testing Right Flexion (S2) 5 Normal Extension (L3) 5 Normal Left Flexion (S2) 5 Normal Extension (L3) 5 Normal PT-OP-Q Treatments Start: 10/09/21 12:17 Freq: Status: Active Protocol: Document 10/12/21 09:04 LRN (Rec: 10/12/21 09:47 LRN [id number]) Therapeutic Exercises Supine Exercises TA Heel slides Supine Exercise Name Single leg slides Reps/Minutes 10x TA/Lynne arm lifts Side bilateral Reps/Minutes 15x TA/Alternate arm lifts Side bilateral Reps/Minutes 15x Fig 4 stretch Side bilateral Reps/Minutes 1' each Comments Extra time for training proper positioning and max stretch tolerance Lateral Hip stretch Side right Reps/Minutes 1+ ' Comments Extra time for training proper positioning and max stretch tolerance Piriformis stretch Side right Reps/Minutes 1+ ' Comments Extra time for training proper positioning and max stretch tolerance Sitting Exercises Piriformis stretch Sitting Exercise Name Piriformis stretch Side right Reps/Minutes 1+ ' Comments Extra time for training proper positioning and max stretch tolerance Manual Therapy Treatment Soft Tissue Mobilization Sacrum Body Location R Sacrum Mobilization Type Sustained Pressure Body Position Prone Comments R lateral Sacrum PA glide, R ISABELLE PA glide, R Ischium PA glide. Rebalancing with appropximation, 8 points. Manual Techniques Hip ER w/AB Type R hip ER w/AB PROM stretch Body Position Supine Comments Decreased mobility R side. Self-Care/Home Management Treatment Education Patient Education Home Exercise Program Activities Self-Care/Home Management Activities Issued & reviewed HEP: R Lateral Hip & Piriformis stretch, lynne Fig 4 stretch. I/S pt in TA/heel slides for HEP. 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 LTG Duration 01/07/22 Two Impairment Bilateral Hip/Low Back Pain rated 8/10 Short Term Goal (STG) Decrease lynne hip/low back pain to no greater than 4/10. STG Duration 11/27/20 Intermediate Goal (LTG) Pt will be able to manage her lynne hip/LB pain to a tolerable level (or alleviate the pain) with proper posturing and exercises. LTG Duration 01/07/22 One Impairment Lacks appropriate self care HEP Short Term Goal (STG) Pt educated in proper body mechanics and modality use to help decrease pain. STG Duration 10/20/21 Sample Paster Goal (LTG) Pt will be independent on a self care HEP of low back and hip stretches/strengthening exercises. LTG Duration 01/07/22 Assessment Summary Assessment 09/15/19: X-rays show Trace retrolisthesis of L3 on L4 and L4-L5. Pt needed assist to get sitting Piriformis stretch correct, after training good form noted. LB/hip Pain decreased from 3/10 to start to 1/10 after treatment. R sacrum decreased mobility R inferior glide, and PA, decreased Ischium R for PA glide. Special Tests Lynne hips : Log roll, Stinchfield Resisted hip flexion was negative to rule out hip pathology, R Mukesh Test/ Gaelens Test + for possible SIJ dysfunction, although Thigh Thrust & Patricks test was neg; therefore most likely ruling out SIJ dysfunction. Pt had + open pattern of the sacrum, mostly corrected with manual therapy. She still presents with tightness of the R hip/pelvis and instability of pelvis/core with leg slides. Further manual therapy needed for pelvis/abdomen. 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 Check Piriformis Mobilitiy on R to see if equal to L at end of next week. Assess response to manual therapy, review & issue HEP of I/S of TA strengthening program. Check for shear of sacrum and recheck for R sacral tight in PA and inferior glide). HEP: ROM: R hip PSLR, Trunk SB R>L & lynne Rot; Strengthening: R hip IR. Postural awareness training against wall & on TM. Body Mechanics training.
--- NOTE | 2021-10-16 18:16 | PT.OTN ---
Current Diagnoses Pain in unspecified hip (10/16/21) Postural kyphosis, thoracic region (10/16/21) Muscle weakness (generalized) (10/16/21) Other abnormalities of gait and mobility (10/16/21) Physical Therapy Treatment Note PT-OP-A Visit Information Start: 10/09/21 12:17 Freq: Status: Active Protocol: Document 10/16/21 12:52 LRN (Rec: 10/16/21 13:38 LRN [id number]) Out-Patient Physical Therapy Visit Information Visit Information Visit Type Treatment Note Visit Start Time 12:52 Visit Stop Time 13:36 Total Visit Minutes 44 Visit Number 3 Evaluation Information Evaluation Date 10/09/21 Precautions Precautions Latex allergy. 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 Pt has residual back pain from chemo & radiation therapy. Medication controlled depression/anxiety, hypothyroid, arthritis of the knees. PT-OP-B Current Condition Start: 10/09/21 12:17 Freq: Status: Active Protocol: Document 10/09/21 13:35 LRN (Rec: 10/09/21 17:43 LRN [id number]) Current Condition History of Current Condition Onset Date 08/24/21 (end of Jul) Current Complaints Pain in both hips after repetitive activity and long walks. History of Current Condition When walking (2 miles 3 days/ week), both hips start hurting . With sit rest the pain goes away. 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 Had lymphadema therapy in [place] for it (while in college). Prior Treatments and Tests X-ray, pt states it was negative for bursitis. Future Testing and Treatments Planned None Developmental History Developmental History Going to animal geneticist. 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 Brain scan was negative for MS . Has done a heart monitor assessment, and treadmill stress test. Appt 11/06/21 with International Marketing Executive (Dr. Martins from [facility]). 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 PMH: Breast reduction therapy 8yrs ago, Arthritis in knees, Anxiety/Depression controlled by meds, Hypothyroidism. Non-Hodgkins Lymphoma in L groin [id number]. Treatment Goals Patient/Caregiver Goals Pt goal is to manage the pain or get rid of it, do things to help it. 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 Prior Functional Status Baseline Function- ADL's Independent Baseline Function- Mobility Independent Baseline Function- Gait For past 3 yrs walked 2 miles without pain. Baseline Function- Other Wears compression stockings during walk to control onset of numbness in the L foot ( location of Lymphedema and cancer in groin). Current Functional Impairments (Reported) Functional Limitations- ADL's Onset of bilateral hip pain with laundry, cleaning, static standing > 20' Functional Limitations- Mobility/Gait Can walk 3/4 mile on flat ground before bilateral hip pain starts (indicating pain across the low back at the sacral level). Functional Limitations- Recreation/ Pain with gentle yoga Hobbies Functional Limitations- Other Pain with laundry (reaching up /down for clothes), volunteering 2 hours for [employer] ( sweeping and picking up objects). Personal Factors Other Personal Factors That May Effect Has daughter who is Autistic, Therapy/Recovery and is her caregiver, requiring housecleaning and attendance sitting with her. Lives in [place] and has onset of back pain by the time she drives to [place]. L foot sensation impaired (in area of lymphedema) since tumor wrapped around artery in L groin. Arthritis in knees. PT-OP-C Subjective Start: 10/09/21 12:17 Freq: Status: Active Protocol: Document 10/16/21 12:52 LRN (Rec: 10/16/21 13:38 LRN [id number]) OP-PT Subjective Patient Comments Patient Comments States was better last treatment for a whole day. Walked today & had hip pain. PT-OP-G Mobility & Gait Start: 10/09/21 12:17 Freq: Status: Active Protocol: Document 10/09/21 13:35 LRN (Rec: 10/09/21 17:43 LRN [id number]) OP Gait Assessment Gait Gait Assistance Required: Independent Able to Maintain Weight Bearing Status Yes During Gait Assistive Devices Assistive Device None Comments Gait Comments Pt notes normal gait. PT-OP-H Neuro Start: 10/09/21 12:17 Freq: Status: Active Protocol: Document 10/09/21 13:35 LRN (Rec: 10/09/21 17:43 LRN [id number]) Sensation Evaluation Gross Sensation Gross Sensation WNL Location Details Left Foot Light Touch Impaired Sharp/Dull Intact/Normal Deep Pressure Intact/Normal Hot/Cold Intact/Normal PT-OP-J Posture/Palpation/Skin Start: 10/09/21 12:17 Freq: Status: Active Protocol: Document 10/09/21 13:35 LRN (Rec: 10/09/21 17:43 LRN [id number]) Posture Evaluation Position Standing Evaluation View all positions Head/C-Spine Posture Forward Head T-Spine Posture Increased Kyphosis Shoulder Posture (L) Elevated Pelvis Posture (L) Iliac Crest Superior Ankle/Foot Posture (L) Forefoot Eversion,(R) Forefoot Eversion Comments Posture Comments Varus of lower legs, slight scoliosis towards bottom of spine (apex is left in upper curve, right in lower curve, reversal at T/L junction). Palpation Assessment Location SIJ Palpation Location R side - decreased mobility for PA and inferior glide. Palpation Findings Soft Tissue Tightness, Tenderness PT-OP-K Range of Motion Start: 10/09/21 12:17 Freq: Status: Active Protocol: Document 10/09/21 13:35 LRN (Rec: 10/09/21 17:43 LRN [id number]) Lumbar Spine Range of Motion Lumbar Spine Active Degrees Testing Position Standing Flexion 90 Extension 18 Rotation Left 25 Rotation Right 25 Lateral Flexion Left 12 Lateral Flexion Right 10 ROM Limitations Pain Comments Trunk flex 90 deg's with 45 deg's hip flexion. Trunk Ext 18 deg's with 3 deg' s hip extension. SB left caused discomfort across sacral area. Rotation left cause R SI pain. Hip Goniometric Range of Motion Hip Right Passive Testing Position Supine Straight Leg Raise 80 Abduction 45 Internal Rotation 25 External Rotation 75 Left Passive Testing Position Supine Straight Leg Raise 85 Abduction 45 Internal Rotation 35 External Rotation 75 Knee Goniometric Range of Motion Knee Right Knee ROM WFL Yes Patient Position Supine Comments WNL Left Knee ROM WFL Yes Patient Position Supine Comments WNL PT-OP-L Special Tests Start: 10/09/21 12:17 Freq: Status: Active Protocol: Document 10/12/21 09:04 LRN (Rec: 10/12/21 09:47 LRN [id number]) Special Tests Hip Special Tests Thigh Thrust Test Test Results - Bilaterally Gaenslen Test Test Results + Right JACKIE Test Results - Bilaterally PT-OP-M Strength Start: 10/09/21 12:17 Freq: Status: Active Protocol: Document 10/09/21 13:35 LRN (Rec: 10/09/21 17:43 LRN [id number]) Trunk Strength Trunk Manual Muscle Testing Testing Position Supine Core Stabilization WNL Hip Strength Hip Manual Muscle Testing Right Flexion (L2) 5 Normal Extension (S1) 5 Normal Abduction 5 Normal Adduction 3- Fair- External Rotation 5 Normal Internal Rotation 4+ Good+ Left Flexion (L2) 5 Normal Extension (S1) 5 Normal Abduction 5 Normal Adduction 5 Normal External Rotation 5 Normal Internal Rotation 5 Normal Knee Strength Knee Manual Muscle Testing Right Flexion (S2) 5 Normal Extension (L3) 5 Normal Left Flexion (S2) 5 Normal Extension (L3) 5 Normal PT-OP-Q Treatments Start: 10/09/21 12:17 Freq: Status: Active Protocol: Document 10/16/21 12:52 LRN (Rec: 10/16/21 13:38 LRN [id number]) Therapeutic Exercises Supine Exercises Fig 4 stretch Side bilateral Reps/Minutes 5' Comments Extra time for training proper positioning and max stretch tolerance Lateral Hip stretch Side right Reps/Minutes 3 ' Comments Extra time for training proper positioning and max stretch tolerance Piriformis stretch Side right Reps/Minutes 3 ' Comments Extra time for training proper positioning and max stretch tolerance Manual Therapy Treatment Soft Tissue Mobilization Pubic Rami Body Location Pubic Rami mob x 2 Mobilization Type Sustained Pressure Intensity/Depth Moderate Body Position Supine Comments Remained tight bilaterally Pubic bone/Rami Release Body Location Pubic bone/rami release bilateral Mobilization Type Sustained Pressure Intensity/Depth Moderate Body Position Hooklying Sacrum Body Location R Sacrum Mobilization Type Sustained Pressure Body Position Prone Comments R lateral Sacrum PA glide, R ISABELLE PA glide x 3, R Ischium PA x 3 glide. Shear R ISABELLE to left x 3 Rebalancing with appropximation, 8 points. PT-OP-T Assessment and Plan Start: 10/09/21 12:17 Freq: Status: Active Protocol: Document 10/16/21 12:52 LRN (Rec: 10/16/21 13:38 LRN [id number]) Physical Therapy Assessment Goals Three Impairment Decreased function (LEFS score of 50 (20-39% impaired)) Short Term Goal (STG) Improve function with pt able to do laundry (reaching up/ down for clothes) and improve LEFS score of no less than 55. STG Duration 11/27/20 Information Security Specialist Goal (LTG) Pt will be able to do gentle yoga and volunteer 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 LTG Duration 01/07/22 Two Impairment Bilateral Hip/Low Back Pain rated 8/10 Short Term Goal (STG) Decrease lynne hip/low back pain to no greater than 4/10. STG Duration 11/27/20 Information Security Specialist Goal (LTG) Pt will be able to manage her lynne hip/LB pain to a tolerable level (or alleviate the pain) with proper posturing and exercises. LTG Duration 01/07/22 One Impairment Lacks appropriate self care HEP Short Term Goal (STG) Pt educated in proper body mechanics and modality use to help decrease pain. STG Duration 10/20/21 Usp Goal (LTG) Pt will be independent on a self care HEP of low back and hip stretches/strengthening exercises. LTG Duration 01/07/22 Assessment Summary Assessment Pt continues to have tightness of the R Piriformis; therefore pt should focus of stretching the R side for at least 1 more more week. + response to manual therapy last session with reduction in pain for 1 day. Pt had pain upon waking the next day; therefore pain irritation possibly from poor sleeping position (L leg draped over R, or R draped over L). + response to manual therapy today, with only complaints of pain in back rated 1/10 after therapy. Shear of sacrum to the right (sacrum SB left), with fair correction after manual treatment. 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 Check Piriformis Mobility on R to see if equal to L in 2 weeks. Assess carryover of manual treatment and pt's nighttime sleeping changes to prevent top leg from draping over bottom leg when in sidelie. Assess pain (STG #2). Recheck sacrum for SB left ( shear to right) and correct if needed. Check for R sacral tight in PA and inferior glide ). Review & issue HEP of I/S of TA strengthening program. HEP: ROM: R hip PSLR, Trunk SB R>L & lynne Rot; Strengthening: R hip IR. Postural awareness training against wall & on TM. Body Mechanics training.
--- NOTE | 2021-10-23 09:22 | PT.OTN ---
Addendum entered and electronically signed by Maris Judd PTA 10/23/21 09:36: Added more appts 1x/wk for 4 weeks, PT/SUB PLANT MANAGER. Original Note: Current Diagnoses Pain in unspecified hip (10/23/21) Postural kyphosis, thoracic region (10/23/21) Muscle weakness (generalized) (10/23/21) Other abnormalities of gait and mobility (10/23/21) Physical Therapy Treatment Note PT-OP-A Visit Information Start: 10/09/21 12:17 Freq: Status: Active Protocol: Document 10/23/21 08:18 ER (Rec: 10/23/21 09:20 ER [id number]) Out-Patient Physical Therapy Visit Information Visit Information Visit Type Treatment Note Visit Note KAROL Graham lead treatment and provided education under direct supervision and instruction of HERB Pollock. Visit Start Time 08:18 Visit Stop Time 09:00 Total Visit Minutes 43 Visit Number 4 Number of SUB PLANT MANAGER Visits 1 Precautions Precautions Latex allergy. 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 Pt has residual back pain from chemo & radiation therapy. Medication controlled depression/anxiety, hypothyroid, arthritis of the knees. PT-OP-B Current Condition Start: 10/09/21 12:17 Freq: Status: Active Protocol: Document 10/09/21 13:35 LRN (Rec: 10/09/21 17:43 LRN [id number]) Current Condition History of Current Condition Onset Date 08/24/21 (end of Jul) Current Complaints Pain in both hips after repetitive activity and long walks. History of Current Condition When walking (2 miles 3 days/ week), both hips start hurting . With sit rest the pain goes away. 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 Had lymphadema therapy in [place] for it (while in college). Prior Treatments and Tests X-ray, pt states it was negative for bursitis. Future Testing and Treatments Planned None Developmental History Developmental History Going to teacher of the handicapped. 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 Brain scan was negative for MS . Has done a heart monitor assessment, and treadmill stress test. Appt 11/06/21 with Manager Cardiac (Dr. Martins from [facility]). 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 PMH: Breast reduction therapy 8yrs ago, Arthritis in knees, Anxiety/Depression controlled by meds, Hypothyroidism. Non-Hodgkins Lymphoma in L groin [id number]. Treatment Goals Patient/Caregiver Goals Pt goal is to manage the pain or get rid of it, do things to help it. 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 Prior Functional Status Baseline Function- ADL's Independent Baseline Function- Mobility Independent Baseline Function- Gait For past 3 yrs walked 2 miles without pain. Baseline Function- Other Wears compression stockings during walk to control onset of numbness in the L foot ( location of Lymphedema and cancer in groin). Current Functional Impairments (Reported) Functional Limitations- ADL's Onset of bilateral hip pain with laundry, cleaning, static standing > 20' Functional Limitations- Mobility/Gait Can walk 3/4 mile on flat ground before bilateral hip pain starts (indicating pain across the low back at the sacral level). Functional Limitations- Recreation/ Pain with gentle yoga Hobbies Functional Limitations- Other Pain with laundry (reaching up /down for clothes), volunteering 2 hours for [employer] ( sweeping and picking up objects). Personal Factors Other Personal Factors That May Effect Has daughter who is Autistic, Therapy/Recovery and is her caregiver, requiring housecleaning and attendance sitting with her. Lives in [place] and has onset of back pain by the time she drives to [place]. L foot sensation impaired (in area of lymphedema) since tumor wrapped around artery in L groin. Arthritis in knees. PT-OP-C Subjective Start: 10/09/21 12:17 Freq: Status: Active Protocol: Document 10/23/21 08:18 ER (Rec: 11/29/21 09:20 ER [id number]) OP-PT Subjective Patient Comments Patient Comments Pt states felt better after last treatment but that it didn't last. Pain returned after going home and doing housework. Noted decrease in pain post STM today with mobility. PT-OP-G Mobility & Gait Start: 10/09/21 12:17 Freq: Status: Active Protocol: Document 10/09/21 13:35 LRN (Rec: 10/09/21 17:43 LRN [id number]) OP Gait Assessment Gait Gait Assistance Required: Independent Able to Maintain Weight Bearing Status Yes During Gait Assistive Devices Assistive Device None Comments Gait Comments Pt notes normal gait. PT-OP-H Neuro Start: 10/09/21 12:17 Freq: Status: Active Protocol: Document 10/09/21 13:35 LRN (Rec: 10/09/21 17:43 LRN [id number]) Sensation Evaluation Gross Sensation Gross Sensation WNL Location Details Left Foot Light Touch Impaired Sharp/Dull Intact/Normal Deep Pressure Intact/Normal Hot/Cold Intact/Normal PT-OP-J Posture/Palpation/Skin Start: 10/09/21 12:17 Freq: Status: Active Protocol: Document 10/09/21 13:35 LRN (Rec: 10/09/21 17:43 LRN [id number]) Posture Evaluation Position Standing Evaluation View all positions Head/C-Spine Posture Forward Head T-Spine Posture Increased Kyphosis Shoulder Posture (L) Elevated Pelvis Posture (L) Iliac Crest Superior Ankle/Foot Posture (L) Forefoot Eversion,(R) Forefoot Eversion Comments Posture Comments Varus of lower legs, slight scoliosis towards bottom of spine (apex is left in upper curve, right in lower curve, reversal at T/L junction). Palpation Assessment Location SIJ Palpation Location R side - decreased mobility for PA and inferior glide. Palpation Findings Soft Tissue Tightness, Tenderness PT-OP-K Range of Motion Start: 10/09/21 12:17 Freq: Status: Active Protocol: Document 10/09/21 13:35 LRN (Rec: 10/09/21 17:43 LRN [id number]) Lumbar Spine Range of Motion Lumbar Spine Active Degrees Testing Position Standing Flexion 90 Extension 18 Rotation Left 25 Rotation Right 25 Lateral Flexion Left 12 Lateral Flexion Right 10 ROM Limitations Pain Comments Trunk flex 90 deg's with 45 deg's hip flexion. Trunk Ext 18 deg's with 3 deg' s hip extension. SB left caused discomfort across sacral area. Rotation left cause R SI pain. Hip Goniometric Range of Motion Hip Right Passive Testing Position Supine Straight Leg Raise 80 Abduction 45 Internal Rotation 25 External Rotation 75 Left Passive Testing Position Supine Straight Leg Raise 85 Abduction 45 Internal Rotation 35 External Rotation 75 Knee Goniometric Range of Motion Knee Right Knee ROM WFL Yes Patient Position Supine Comments WNL Left Knee ROM WFL Yes Patient Position Supine Comments WNL PT-OP-L Special Tests Start: 10/09/21 12:17 Freq: Status: Active Protocol: Document 10/12/21 09:04 LRN (Rec: 10/12/21 09:47 LRN [id number]) Special Tests Hip Special Tests Thigh Thrust Test Test Results - Bilaterally Gaenslen Test Test Results + Right JACKIE Test Results - Bilaterally PT-OP-M Strength Start: 10/09/21 12:17 Freq: Status: Active Protocol: Document 10/09/21 13:35 LRN (Rec: 10/09/21 17:43 LRN [id number]) Trunk Strength Trunk Manual Muscle Testing Testing Position Supine Core Stabilization WNL Hip Strength Hip Manual Muscle Testing Right Flexion (L2) 5 Normal Extension (S1) 5 Normal Abduction 5 Normal Adduction 3- Fair- External Rotation 5 Normal Internal Rotation 4+ Good+ Left Flexion (L2) 5 Normal Extension (S1) 5 Normal Abduction 5 Normal Adduction 5 Normal External Rotation 5 Normal Internal Rotation 5 Normal Knee Strength Knee Manual Muscle Testing Right Flexion (S2) 5 Normal Extension (L3) 5 Normal Left Flexion (S2) 5 Normal Extension (L3) 5 Normal PT-OP-Q Treatments Start: 10/09/21 12:17 Freq: Status: Active Protocol: Document 10/23/21 08:18 ER (Rec: 10/23/21 09:20 ER [id number]) Therapeutic Exercises Supine Exercises Fig 4 stretch Supine Exercise Name Reviewed HEP Side right Reps/Minutes 1' Comments good form and feedback Lateral Hip stretch Side right Reps/Minutes 1' Comments good form and feedback Piriformis stretch Side right Reps/Minutes 1' Comments good form and feedback Manual Therapy Treatment Soft Tissue Mobilization Piriformis Body Location piriformis glute max Mobilization Type Oscillations,Sustained Pressure,Trigger Point Release Intensity/Depth Moderate Body Position Prone Comments Noted pain 4-5/10 over piriformis L>R. Good feedback with release of muscular tension and decrease of pain post tx. Self-Care/Home Management Treatment Education Patient Education Body Mechanics,Pain Management Other Education Sleep positioning training for spinal alignment and rleife of hip pain, use of pillows between knees. Activities Self-Care/Home Management Activities Instructed on Ball on wall STM for piriformis/ glutes. Added to HEP PT-OP-T Assessment and Plan Start: 10/09/21 12:17 Freq: Status: Active Protocol: Document 10/23/21 08:18 ER (Rec: 10/23/21 09:20 ER [id number]) Physical Therapy Assessment Goals Three Impairment Decreased function (LEFS score of 50 (20-39% impaired)) Short Term Goal (STG) Improve function with pt able to do laundry (reaching up/ down for clothes) and improve LEFS score of no less than 55. STG Duration 11/27/20 Inspector And Hand Packager Goal (LTG) Pt will be able to do gentle yoga and volunteer 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 LTG Duration 01/07/22 Two Impairment Bilateral Hip/Low Back Pain rated 8/10 Short Term Goal (STG) Decrease lynne hip/low back pain to no greater than 4/10. STG Duration 11/27/20 Fci Goal (LTG) Pt will be able to manage her lynne hip/LB pain to a tolerable level (or alleviate the pain) with proper posturing and exercises. LTG Duration 01/07/22 One Impairment Lacks appropriate self care HEP Short Term Goal (STG) Pt educated in proper body mechanics and modality use to help decrease pain. STG Duration 10/20/21 Inspector And Hand Packager Goal (LTG) Pt will be independent on a self care HEP of low back and hip stretches/strengthening exercises. LTG Duration 01/07/22 Assessment Summary Assessment Pt demonstrated good form with HEP stretches. Responded with decreased pain with mobility post STM. Pt indicated that sleep positioning with pillows b/t knees took pressure of of muscles, but that she had pain over Gr. trochanter B, when lying on her side. Will need to assess trochanteric pain. Pt instructed on ball on wall Self STM for piriformis. Pt indicated that this also provided some pain relief. 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 Check Piriformis Mobility on R to see if equal to L in 2 weeks. Assess carryover of manual treatment and pt's nighttime sleeping changes to prevent top leg from draping over bottom leg when in sidelie. Assess pain (STG #2). Recheck sacrum for SB left ( shear to right) and correct if needed. Check for R sacral tight in PA and inferior glide ). Review & issue HEP of I/S of TA strengthening program. HEP: ROM: R hip PSLR, Trunk SB R>L & lynne Rot; Strengthening: R hip IR. Postural awareness training against wall & on TM. Body Mechanics training. Assess self STM of piriformis and results of sleep positioning education. Postural assessment while performing ADLs housework.
--- NOTE | 2021-10-23 09:46 | PT.OTN ---
Current Diagnoses Pain in unspecified hip (10/23/21) Postural kyphosis, thoracic region (10/23/21) Muscle weakness (generalized) (10/23/21) Other abnormalities of gait and mobility (10/23/21) Physical Therapy Treatment Note PT-OP-A Visit Information Start: 10/09/21 12:17 Freq: Status: Active Protocol: Document 10/23/21 08:18 ER (Rec: 10/23/21 09:20 ER [id number]) Out-Patient Physical Therapy Visit Information Visit Information Visit Type Treatment Note Visit Note SPTA Santos lead treatment and provided education under direct supervision and instruction of HERB Pollock. Visit Start Time 08:18 Visit Stop Time 09:00 Total Visit Minutes 43 Visit Number 4 Number of SINTER PRESS OPERATOR Visits 1 Precautions Precautions Latex allergy. 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 Pt has residual back pain from chemo & radiation therapy. Medication controlled depression/anxiety, hypothyroid, arthritis of the knees. PT-OP-B Current Condition Start: 10/09/21 12:17 Freq: Status: Active Protocol: Document 10/09/21 13:35 LRN (Rec: 10/09/21 17:43 LRN [id number]) Current Condition History of Current Condition Onset Date 08/24/21 (end of Jul) Current Complaints Pain in both hips after repetitive activity and long walks. History of Current Condition When walking (2 miles 3 days/ week), both hips start hurting . With sit rest the pain goes away. 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 Had lymphadema therapy in [place] for it (while in college). Prior Treatments and Tests X-ray, pt states it was negative for bursitis. 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 Brain scan was negative for MS . Has done a heart monitor assessment, and treadmill stress test. Appt 11/06/21 with Process Improvement Engineer (Dr. Martins from [facility]). 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 PMH: Breast reduction therapy 8yrs ago, Arthritis in knees, Anxiety/Depression controlled by meds, Hypothyroidism. Non-Hodgkins Lymphoma in L groin [id number]. Treatment Goals Patient/Caregiver Goals Pt goal is to manage the pain or get rid of it, do things to help it. 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 Prior Functional Status Baseline Function- ADL's Independent Baseline Function- Mobility Independent Baseline Function- Gait For past 3 yrs walked 2 miles without pain. Baseline Function- Other Wears compression stockings during walk to control onset of numbness in the L foot ( location of Lymphedema and cancer in groin). Current Functional Impairments (Reported) Functional Limitations- ADL's Onset of bilateral hip pain with laundry, cleaning, static standing > 20' Functional Limitations- Mobility/Gait Can walk 3/4 mile on flat ground before bilateral hip pain starts (indicating pain across the low back at the sacral level). Functional Limitations- Recreation/ Pain with gentle yoga Hobbies Functional Limitations- Other Pain with laundry (reaching up /down for clothes), volunteering 2 hours for [employer] ( sweeping and picking up objects). Personal Factors Other Personal Factors That May Effect Has daughter who is Autistic, Therapy/Recovery and is her caregiver, requiring housecleaning and attendance sitting with her. Lives in [place] and has onset of back pain by the time she drives to [employer]. L foot sensation impaired (in area of lymphedema) since tumor wrapped around artery in L groin. Arthritis in knees. PT-OP-C Subjective Start: 10/09/21 12:17 Freq: Status: Active Protocol: Document 10/23/21 08:18 ER (Rec: 10/23/21 09:20 ER [id number]) OP-PT Subjective Patient Comments Patient Comments Pt states felt better after last treatment but that it didn't last. Pain returned after going home and doing housework. Noted decrease in pain post STM today with mobility. PT-OP-G Mobility & Gait Start: 10/09/21 12:17 Freq: Status: Active Protocol: Document 10/09/21 13:35 LRN (Rec: 10/09/21 17:43 LRN [id number]) OP Gait Assessment Gait Gait Assistance Required: Independent Able to Maintain Weight Bearing Status Yes During Gait Assistive Devices Assistive Device None Comments Gait Comments Pt notes normal gait. PT-OP-H Neuro Start: 10/09/21 12:17 Freq: Status: Active Protocol: Document 10/09/21 13:35 LRN (Rec: 10/09/21 17:43 LRN [id number]) Sensation Evaluation Gross Sensation Gross Sensation WNL Location Details Left Foot Light Touch Impaired Sharp/Dull Intact/Normal Deep Pressure Intact/Normal Hot/Cold Intact/Normal PT-OP-J Posture/Palpation/Skin Start: 10/09/21 12:17 Freq: Status: Active Protocol: Document 10/09/21 13:35 LRN (Rec: 10/09/21 17:43 LRN [id number]) Posture Evaluation Position Standing Evaluation View all positions Head/C-Spine Posture Forward Head T-Spine Posture Increased Kyphosis Shoulder Posture (L) Elevated Pelvis Posture (L) Iliac Crest Superior Ankle/Foot Posture (L) Forefoot Eversion,(R) Forefoot Eversion Comments Posture Comments Varus of lower legs, slight scoliosis towards bottom of spine (apex is left in upper curve, right in lower curve, reversal at T/L junction). Palpation Assessment Location SIJ Palpation Location R side - decreased mobility for PA and inferior glide. Palpation Findings Soft Tissue Tightness, Tenderness PT-OP-K Range of Motion Start: 10/09/21 12:17 Freq: Status: Active Protocol: Document 10/09/21 13:35 LRN (Rec: 10/09/21 17:43 LRN [id number]) Lumbar Spine Range of Motion Lumbar Spine Active Degrees Testing Position Standing Flexion 90 Extension 18 Rotation Left 25 Rotation Right 25 Lateral Flexion Left 12 Lateral Flexion Right 10 ROM Limitations Pain Comments Trunk flex 90 deg's with 45 deg's hip flexion. Trunk Ext 18 deg's with 3 deg' s hip extension. SB left caused discomfort across sacral area. Rotation left cause R SI pain. Hip Goniometric Range of Motion Hip Right Passive Testing Position Supine Straight Leg Raise 80 Abduction 45 Internal Rotation 25 External Rotation 75 Left Passive Testing Position Supine Straight Leg Raise 85 Abduction 45 Internal Rotation 35 External Rotation 75 Knee Goniometric Range of Motion Knee Right Knee ROM WFL Yes Patient Position Supine Comments WNL Left Knee ROM WFL Yes Patient Position Supine Comments WNL PT-OP-L Special Tests Start: 10/09/21 12:17 Freq: Status: Active Protocol: Document 10/12/21 09:04 LRN (Rec: 10/12/21 09:47 LRN [id number]) Special Tests Hip Special Tests Thigh Thrust Test Test Results - Bilaterally Gaenslen Test Test Results + Right JACKIE Test Results - Bilaterally PT-OP-M Strength Start: 10/09/21 12:17 Freq: Status: Active Protocol: Document 10/09/21 13:35 LRN (Rec: 10/09/21 17:43 LRN [id number]) Trunk Strength Trunk Manual Muscle Testing Testing Position Supine Core Stabilization WNL Hip Strength Hip Manual Muscle Testing Right Flexion (L2) 5 Normal Extension (S1) 5 Normal Abduction 5 Normal Adduction 3- Fair- External Rotation 5 Normal Internal Rotation 4+ Good+ Left Flexion (L2) 5 Normal Extension (S1) 5 Normal Abduction 5 Normal Adduction 5 Normal External Rotation 5 Normal Internal Rotation 5 Normal Knee Strength Knee Manual Muscle Testing Right Flexion (S2) 5 Normal Extension (L3) 5 Normal Left Flexion (S2) 5 Normal Extension (L3) 5 Normal PT-OP-Q Treatments Start: 10/09/21 12:17 Freq: Status: Active Protocol: Document 10/23/21 08:18 ER (Rec: 10/23/21 09:20 ER [id number]) Therapeutic Exercises Supine Exercises Fig 4 stretch Supine Exercise Name Reviewed HEP Side right Reps/Minutes 1' Comments good form and feedback Lateral Hip stretch Side right Reps/Minutes 1' Comments good form and feedback Piriformis stretch Side right Reps/Minutes 1' Comments good form and feedback Manual Therapy Treatment Soft Tissue Mobilization Piriformis Body Location piriformis glute max Mobilization Type Oscillations,Sustained Pressure,Trigger Point Release Intensity/Depth Moderate Body Position Prone Comments Noted pain 4-5/10 over piriformis L>R. Good feedback with release of muscular tension and decrease of pain post tx. Self-Care/Home Management Treatment Education Patient Education Body Mechanics,Pain Management Other Education Sleep positioning training for spinal alignment and rleife of hip pain, use of pillows between knees. Activities Self-Care/Home Management Activities Instructed on Ball on wall STM for piriformis/ glutes. Added to HEP PT-OP-T Assessment and Plan Start: 10/09/21 12:17 Freq: Status: Active Protocol: Document 10/23/21 08:18 ER (Rec: 10/23/21 09:20 ER [id number]) Physical Therapy Assessment Goals Three Impairment Decreased function (LEFS score of 50 (20-39% impaired)) Short Term Goal (STG) Improve function with pt able to do laundry (reaching up/ down for clothes) and improve LEFS score of no less than 55. STG Duration 11/27/20 Long-Term Goal (LTG) Pt will be able to do gentle yoga and volunteer 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 LTG Duration 01/07/22 Two Impairment Bilateral Hip/Low Back Pain rated 8/10 Short Term Goal (STG) Decrease lynne hip/low back pain to no greater than 4/10. STG Duration 11/27/20 Aerial Photographer Goal (LTG) Pt will be able to manage her lynne hip/LB pain to a tolerable level (or alleviate the pain) with proper posturing and exercises. LTG Duration 01/07/22 One Impairment Lacks appropriate self care HEP Short Term Goal (STG) Pt educated in proper body mechanics and modality use to help decrease pain. STG Duration 10/20/21 Aerial Photographer Goal (LTG) Pt will be independent on a self care HEP of low back and hip stretches/strengthening exercises. LTG Duration 01/07/22 Assessment Summary Assessment Pt demonstrated good form with HEP stretches. Responded with decreased pain with mobility post STM. Pt indicated that sleep positioning with pillows b/t knees took pressure of of muscles, but that she had pain over Gr. trochanter B, when lying on her side. Will need to assess trochanteric pain. Pt instructed on ball on wall Self STM for piriformis. Pt indicated that this also provided some pain relief. 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 Check Piriformis Mobility on R to see if equal to L in 2 weeks. Assess carryover of manual treatment and pt's nighttime sleeping changes to prevent top leg from draping over bottom leg when in sidelie. Assess pain (STG #2). Recheck sacrum for SB left ( shear to right) and correct if needed. Check for R sacral tight in PA and inferior glide ). Review & issue HEP of I/S of TA strengthening program. HEP: ROM: R hip PSLR, Trunk SB R>L & lynne Rot; Strengthening: R hip IR. Postural awareness training against wall & on TM. Body Mechanics training. Assess self STM of piriformis and results of sleep positioning education. Postural assessment while performing ADLs housework.
--- NOTE | 2021-10-30 17:08 | PT.OTN ---
Current Diagnoses Pain in unspecified hip (10/30/21) Postural kyphosis, thoracic region (10/30/21) Muscle weakness (generalized) (10/30/21) Other abnormalities of gait and mobility (10/30/21) Physical Therapy Treatment Note PT-OP-A Visit Information Start: 10/09/21 12:17 Freq: Status: Active Protocol: Document 10/30/21 13:37 LRN (Rec: 10/30/21 16:47 LRN [id number]) Out-Patient Physical Therapy Visit Information Visit Information Visit Type Treatment Note Visit Start Time 13:37 Visit Stop Time 14:22 Total Visit Minutes 45 Visit Number 5 Evaluation Information Evaluation Date 10/09/21 Precautions Precautions Latex allergy. 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 Pt has residual back pain from chemo & radiation therapy. Medication controlled depression/anxiety, hypothyroid, arthritis of the knees. PT-OP-B Current Condition Start: 10/09/21 12:17 Freq: Status: Active Protocol: Document 10/09/21 13:35 LRN (Rec: 10/09/21 17:43 LRN [id number]) Current Condition History of Current Condition Onset Date 08/24/21 (end of Jul) Current Complaints Pain in both hips after repetitive activity and long walks. History of Current Condition When walking (2 miles 3 days/ week), both hips start hurting . With sit rest the pain goes away. 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 Had lymphadema therapy in [place] for it (while in college). Prior Treatments and Tests X-ray, pt states it was negative for bursitis. 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 Brain scan was negative for MS . Has done a heart monitor assessment, and treadmill stress test. Appt 11/06/21 with Truck Shop Supervisor (Dr. Martins from [facility]). 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 PMH: Breast reduction therapy 8yrs ago, Arthritis in knees, Anxiety/Depression controlled by meds, Hypothyroidism. Non-Hodgkins Lymphoma in L groin [phone]. Treatment Goals Patient/Caregiver Goals Pt goal is to manage the pain or get rid of it, do things to help it. 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 Prior Functional Status Baseline Function- ADL's Independent Baseline Function- Mobility Independent Baseline Function- Gait For past 3 yrs walked 2 miles without pain. Baseline Function- Other Wears compression stockings during walk to control onset of numbness in the L foot ( location of Lymphedema and cancer in groin). Current Functional Impairments (Reported) Functional Limitations- ADL's Onset of bilateral hip pain with laundry, cleaning, static standing > 20' Functional Limitations- Mobility/Gait Can walk 3/4 mile on flat ground before bilateral hip pain starts (indicating pain across the low back at the sacral level). Functional Limitations- Recreation/ Pain with gentle yoga Hobbies Functional Limitations- Other Pain with laundry (reaching up /down for clothes), volunteering 2 hours for [employer] ( sweeping and picking up objects). Personal Factors Other Personal Factors That May Effect Has daughter who is Autistic, Therapy/Recovery and is her caregiver, requiring housecleaning and attendance sitting with her. Lives in [place] and has onset of back pain by the time she drives to [place]. L foot sensation impaired (in area of lymphedema) since tumor wrapped around artery in L groin. Arthritis in knees. PT-OP-C Subjective Start: 10/09/21 12:17 Freq: Status: Active Protocol: Document 10/30/21 13:37 LRN (Rec: 10/30/21 16:47 LRN [id number]) OP-PT Subjective Patient Comments Patient Comments Exercises hurt. Everything is hurting. States using the yoga ball to stretch there is no lasting relief and the pain with stretching gives way to initial pain, thus no improvement. States she continues to have same kind of back pain first in the morning, but hip pain is less. Walking, there is less hip pain than last week. States sleeping at night there is more pain with the pilllow between the knees than without , so now sleeps with knees together without a pillow between knees. PT-OP-G Mobility & Gait Start: 10/09/21 12:17 Freq: Status: Active Protocol: Document 10/09/21 13:35 LRN (Rec: 10/09/21 17:43 LRN [id number]) OP Gait Assessment Gait Gait Assistance Required: Independent Able to Maintain Weight Bearing Status Yes During Gait Assistive Devices Assistive Device None Comments Gait Comments Pt notes normal gait. PT-OP-H Neuro Start: 10/09/21 12:17 Freq: Status: Active Protocol: Document 10/09/21 13:35 LRN (Rec: 10/09/21 17:43 LRN [id number]) Sensation Evaluation Gross Sensation Gross Sensation WNL Location Details Left Foot Light Touch Impaired Sharp/Dull Intact/Normal Deep Pressure Intact/Normal Hot/Cold Intact/Normal PT-OP-J Posture/Palpation/Skin Start: 10/09/21 12:17 Freq: Status: Active Protocol: Document 10/09/21 13:35 LRN (Rec: 10/09/21 17:43 LRN [id number]) Posture Evaluation Position Standing Evaluation View all positions Head/C-Spine Posture Forward Head T-Spine Posture Increased Kyphosis Shoulder Posture (L) Elevated Pelvis Posture (L) Iliac Crest Superior Ankle/Foot Posture (L) Forefoot Eversion,(R) Forefoot Eversion Comments Posture Comments Varus of lower legs, slight scoliosis towards bottom of spine (apex is left in upper curve, right in lower curve, reversal at T/L junction). Palpation Assessment Location SIJ Palpation Location R side - decreased mobility for PA and inferior glide. Palpation Findings Soft Tissue Tightness, Tenderness PT-OP-K Range of Motion Start: 10/09/21 12:17 Freq: Status: Active Protocol: Document 10/09/21 13:35 LRN (Rec: 10/09/21 17:43 LRN [id number]) Lumbar Spine Range of Motion Lumbar Spine Active Degrees Testing Position Standing Flexion 90 Extension 18 Rotation Left 25 Rotation Right 25 Lateral Flexion Left 12 Lateral Flexion Right 10 ROM Limitations Pain Comments Trunk flex 90 deg's with 45 deg's hip flexion. Trunk Ext 18 deg's with 3 deg' s hip extension. SB left caused discomfort across sacral area. Rotation left cause R SI pain. Hip Goniometric Range of Motion Hip Right Passive Testing Position Supine Straight Leg Raise 80 Abduction 45 Internal Rotation 25 External Rotation 75 Left Passive Testing Position Supine Straight Leg Raise 85 Abduction 45 Internal Rotation 35 External Rotation 75 Knee Goniometric Range of Motion Knee Right Knee ROM WFL Yes Patient Position Supine Comments WNL Left Knee ROM WFL Yes Patient Position Supine Comments WNL PT-OP-L Special Tests Start: 10/09/21 12:17 Freq: Status: Active Protocol: Document 10/12/21 09:04 LRN (Rec: 10/12/21 09:47 LRN [id number]) Special Tests Hip Special Tests Thigh Thrust Test Test Results - Bilaterally Gaenslen Test Test Results + Right JACKIE Test Results - Bilaterally PT-OP-M Strength Start: 10/09/21 12:17 Freq: Status: Active Protocol: Document 10/09/21 13:35 LRN (Rec: 10/09/21 17:43 LRN [id number]) Trunk Strength Trunk Manual Muscle Testing Testing Position Supine Core Stabilization WNL Hip Strength Hip Manual Muscle Testing Right Flexion (L2) 5 Normal Extension (S1) 5 Normal Abduction 5 Normal Adduction 3- Fair- External Rotation 5 Normal Internal Rotation 4+ Good+ Left Flexion (L2) 5 Normal Extension (S1) 5 Normal Abduction 5 Normal Adduction 5 Normal External Rotation 5 Normal Internal Rotation 5 Normal Knee Strength Knee Manual Muscle Testing Right Flexion (S2) 5 Normal Extension (L3) 5 Normal Left Flexion (S2) 5 Normal Extension (L3) 5 Normal PT-OP-Q Treatments Start: 10/09/21 12:17 Freq: Status: Active Protocol: Document 10/30/21 13:37 LRN (Rec: 10/30/21 16:47 LRN [id number]) Therapeutic Exercises Supine Exercises Hamstring/LE stretch Supine Exercise Name Hamstring/LE neural stretch Side bilateral Reps/Minutes 4' Fig 4 stretch Supine Exercise Name Fig 4 stretch Side right Reps/Minutes 2' Comments Appears symmetrcal and good ROM; therefore DC from HEP. Lateral Hip stretch Side bilateral Reps/Minutes 7' Comments Focus on R. Much modification needed to determine max stretch tolerance. Piriformis stretch Side right Reps/Minutes 3' Comments Extra time to determine max stretch tolerance Manual Therapy Treatment Soft Tissue Mobilization Pubic Rami Body Location Pubic Rami/Iliac Crest approximation mob x 2 Mobilization Type Sustained Pressure Intensity/Depth Moderate Body Position Supine Comments Softening noted bilaterally Sacrum Body Location R Sacrum Mobilization Type Sustained Pressure Body Position Prone Comments L lateral Sacrum PA glide, L ISABELLE PA glide x 3, L Ischium PA x 3 glide. Shear R ISABELLE to left x 3 Rebalancing with appropximation, 8 points. Self-Care/Home Management Treatment Education Patient Education Home Exercise Program Activities Self-Care/Home Management Activities Issued & reviewed HEP: LE hamstring/neural stretch. PT-OP-T Assessment and Plan Start: 10/09/21 12:17 Freq: Status: Active Protocol: Document 10/30/21 13:37 LRN (Rec: 10/30/21 16:47 LRN [id number]) Physical Therapy Assessment Goals Three Impairment Decreased function (LEFS score of 50 (20-39% impaired)) Short Term Goal (STG) Improve function with pt able to do laundry (reaching up/ down for clothes) and improve LEFS score of no less than 55. STG Duration 11/27/20 Fci Goal (LTG) Pt will be able to do gentle yoga and volunteer 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 LTG Duration 01/07/22 Two Impairment Bilateral Hip/Low Back Pain rated 8/10 Short Term Goal (STG) Decrease lynne hip/low back pain to no greater than 4/10. STG Duration 11/27/20 Casino Cashier Goal (LTG) Pt will be able to manage her lynne hip/LB pain to a tolerable level (or alleviate the pain) with proper posturing and exercises. LTG Duration 01/07/22 One Impairment Lacks appropriate self care HEP Short Term Goal (STG) Pt educated in proper body mechanics and modality use to help decrease pain. STG Duration 10/20/21 [facility] Goal (LTG) Pt will be independent on a self care HEP of low back and hip stretches/strengthening exercises. (10/30/21: Added HEP: Hamstring/LE neural stretch). LTG Duration 01/07/22 Progress Towards Goals Progress Comments Progressed HEP Assessment Summary Assessment Pt pain is bruise like; therefore likely residual pain from her cancer radiation treatments. Pt Sacrum doesn't appear to be sidebent, but is rotated left. Hip IR and general rot is tighter on the R. Pt pulling too hard at hip with HEP: R lateral hip and Piriformis stretch; therefore pain initially at R hip with stretches. Pt has good hip ER with Fig 4 stretch and appears to be equal to the left; therefore pt can discontinue stretch. Improved Sacral mob after manual therapy. Physical Therapy Plan Frequency and Duration Frequency of Treatment 2x/Week Plan of Care Start Date 10/09/21 Plan of Care End Date 01/07/22 Next Visit Focus/Plan Next Note Type Treatment Note Next Visit Plan NOTE: History of Non-Hodgkins Lymphoma w/residual lymphedema after Bone Marrow Transplant in 10/1995. Body Mechanics training and educate in pain management with modalities (ice/heat). Review issued HEP: R hip PSLR stretch. Check Piriformis Mobility on R to see if equal to L. Assess pain (STG #2). Review & issue HEP of I/S of TA strengthening program. Monitor sacrum for SB left ( shear to right) and correct if needed. Check for R sacral tight in PA and inferior glide . Add to HEP: Trunk SB R>L & lynne Rot; Strengthening: R hip IR. Postural awareness training against wall & on TM. Assess self STM of piriformis and results of sleep positioning education. Postural assessment while performing ADLs housework.
--- NOTE | 2021-11-06 16:30 | PT.OTN ---
Current Diagnoses Pain in unspecified hip (11/06/21) Postural kyphosis, thoracic region (11/06/21) Muscle weakness (generalized) (11/06/21) Other abnormalities of gait and mobility (11/06/21) Physical Therapy Treatment Note PT-OP-A Visit Information Start: 10/09/21 12:17 Freq: Status: Active Protocol: Document 11/06/21 13:41 LRN (Rec: 11/06/21 14:38 LRN [id number]) Out-Patient Physical Therapy Visit Information Visit Information Visit Type Treatment Note Visit Start Time 13:41 Visit Stop Time 14:20 Total Visit Minutes 39 Visit Number 6 Evaluation Information Evaluation Date 10/09/21 Precautions Precautions Latex allergy. 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 Pt has residual back pain from chemo & radiation therapy. Medication controlled depression/anxiety, hypothyroid, arthritis of the knees. PT-OP-B Current Condition Start: 10/09/21 12:17 Freq: Status: Active Protocol: Document 10/09/21 13:35 LRN (Rec: 10/09/21 17:43 LRN [id number]) Current Condition History of Current Condition Onset Date 08/24/21 (end of Jul) Current Complaints Pain in both hips after repetitive activity and long walks. History of Current Condition When walking (2 miles 3 days/ week), both hips start hurting . With sit rest the pain goes away. 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 Had lymphadema therapy in [place] for it (while in college). Prior Treatments and Tests X-ray, pt states it was negative for bursitis. Future Testing and Treatments Planned None Developmental History Developmental History Going to [employer]. 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 Brain scan was negative for MS . Has done a heart monitor assessment, and treadmill stress test. Appt 11/06/21 with [employer] (Dr. Martins from [facility]). 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 PMH: Breast reduction therapy 8yrs ago, Arthritis in knees, Anxiety/Depression controlled by meds, Hypothyroidism. Non-Hodgkins Lymphoma in L groin [id number]. Treatment Goals Patient/Caregiver Goals Pt goal is to manage the pain or get rid of it, do things to help it. 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 Prior Functional Status Baseline Function- ADL's Independent Baseline Function- Mobility Independent Baseline Function- Gait For past 3 yrs walked 2 miles without pain. Baseline Function- Other Wears compression stockings during walk to control onset of numbness in the L foot ( location of Lymphedema and cancer in groin). Current Functional Impairments (Reported) Functional Limitations- ADL's Onset of bilateral hip pain with laundry, cleaning, static standing > 20' Functional Limitations- Mobility/Gait Can walk 3/4 mile on flat ground before bilateral hip pain starts (indicating pain across the low back at the sacral level). Functional Limitations- Recreation/ Pain with gentle yoga Hobbies Functional Limitations- Other Pain with laundry (reaching up /down for clothes), volunteering 2 hours for [employer] ( sweeping and picking up objects). Personal Factors Other Personal Factors That May Effect Has daughter who is Autistic, Therapy/Recovery and is her caregiver, requiring housecleaning and attendance sitting with her. Lives in [place] and has onset of back pain by the time she drives to [employer]. L foot sensation impaired (in area of lymphedema) since tumor wrapped around artery in L groin. Arthritis in knees. PT-OP-C Subjective Start: 10/09/21 12:17 Freq: Status: Active Protocol: Document 11/06/21 13:41 LRN (Rec: 11/06/21 14:38 LRN [id number]) OP-PT Subjective Patient Comments Patient Comments If doing hip strethes L first, then it is less painful when doing it on the R side. Did not do the supine LE hamstring stretch because thought she wasn't supposed to do it until she could do the others without pain. Using Heat for pain. When gets up and moves, pain starts, so she takes Oxycodone. PT-OP-G Mobility & Gait Start: 10/09/21 12:17 Freq: Status: Active Protocol: Document 10/09/21 13:35 LRN (Rec: 10/09/21 17:43 LRN [id number]) OP Gait Assessment Gait Gait Assistance Required: Independent Able to Maintain Weight Bearing Status Yes During Gait Assistive Devices Assistive Device None Comments Gait Comments Pt notes normal gait. PT-OP-H Neuro Start: 10/09/21 12:17 Freq: Status: Active Protocol: Document 10/09/21 13:35 LRN (Rec: 10/09/21 17:43 LRN [id number]) Sensation Evaluation Gross Sensation Gross Sensation WNL Location Details Left Foot Light Touch Impaired Sharp/Dull Intact/Normal Deep Pressure Intact/Normal Hot/Cold Intact/Normal PT-OP-J Posture/Palpation/Skin Start: 10/09/21 12:17 Freq: Status: Active Protocol: Document 10/09/21 13:35 LRN (Rec: 10/09/21 17:43 LRN [id number]) Posture Evaluation Position Standing Evaluation View all positions Head/C-Spine Posture Forward Head T-Spine Posture Increased Kyphosis Shoulder Posture (L) Elevated Pelvis Posture (L) Iliac Crest Superior Ankle/Foot Posture (L) Forefoot Eversion,(R) Forefoot Eversion Comments Posture Comments Varus of lower legs, slight scoliosis towards bottom of spine (apex is left in upper curve, right in lower curve, reversal at T/L junction). Palpation Assessment Location SIJ Palpation Location R side - decreased mobility for PA and inferior glide. Palpation Findings Soft Tissue Tightness, Tenderness PT-OP-K Range of Motion Start: 10/09/21 12:17 Freq: Status: Active Protocol: Document 10/09/21 13:35 LRN (Rec: 10/09/21 17:43 LRN [id number]) Lumbar Spine Range of Motion Lumbar Spine Active Degrees Testing Position Standing Flexion 90 Extension 18 Rotation Left 25 Rotation Right 25 Lateral Flexion Left 12 Lateral Flexion Right 10 ROM Limitations Pain Comments Trunk flex 90 deg's with 45 deg's hip flexion. Trunk Ext 18 deg's with 3 deg' s hip extension. SB left caused discomfort across sacral area. Rotation left cause R SI pain. Hip Goniometric Range of Motion Hip Right Passive Testing Position Supine Straight Leg Raise 80 Abduction 45 Internal Rotation 25 External Rotation 75 Left Passive Testing Position Supine Straight Leg Raise 85 Abduction 45 Internal Rotation 35 External Rotation 75 Knee Goniometric Range of Motion Knee Right Knee ROM WFL Yes Patient Position Supine Comments WNL Left Knee ROM WFL Yes Patient Position Supine Comments WNL PT-OP-L Special Tests Start: 10/09/21 12:17 Freq: Status: Active Protocol: Document 10/12/21 09:04 LRN (Rec: 10/12/21 09:47 LRN [id number]) Special Tests Hip Special Tests Thigh Thrust Test Test Results - Bilaterally Gaenslen Test Test Results + Right JACKIE Test Results - Bilaterally PT-OP-M Strength Start: 10/09/21 12:17 Freq: Status: Active Protocol: Document 10/09/21 13:35 LRN (Rec: 10/09/21 17:43 LRN [id number]) Trunk Strength Trunk Manual Muscle Testing Testing Position Supine Core Stabilization WNL Hip Strength Hip Manual Muscle Testing Right Flexion (L2) 5 Normal Extension (S1) 5 Normal Abduction 5 Normal Adduction 3- Fair- External Rotation 5 Normal Internal Rotation 4+ Good+ Left Flexion (L2) 5 Normal Extension (S1) 5 Normal Abduction 5 Normal Adduction 5 Normal External Rotation 5 Normal Internal Rotation 5 Normal Knee Strength Knee Manual Muscle Testing Right Flexion (S2) 5 Normal Extension (L3) 5 Normal Left Flexion (S2) 5 Normal Extension (L3) 5 Normal PT-OP-Q Treatments Start: 10/09/21 12:17 Freq: Status: Active Protocol: Document 11/06/21 13:41 LRN (Rec: 11/06/21 14:38 LRN [id number]) Therapeutic Exercises Supine Exercises Hamstring/LE stretch Supine Exercise Name Hamstring/LE neural stretch Side bilateral Reps/Minutes 4' Comments v cuing needed for proper positioning and performance of stretch Lateral Hip stretch Side bilateral Reps/Minutes 7' Comments Focus on R. Much modification needed to determine max stretch tolerance. Piriformis stretch Side right Reps/Minutes 3' Comments Extra time to determine max stretch tolerance Sidelying Exercises Thoracic Rot Stretch Sidelying Exercise Name Open Book stretch Side bilateral Reps/Minutes 3 Hold x 10 Comments Time taken for finding max tolerated stretch, cuing to keep hand in vision Standing Exercises Thoracic Extension Standing Exercise Name Leaning over with Hands on plinth/Bed: Thoracic Ext Reps/Minutes 10H x 10 Manual Therapy Treatment Soft Tissue Mobilization Sacrum Body Location R Sacrum Mobilization Type Sustained Pressure Body Position Prone Comments PA of R lateral Sacrum, R ISABELLE PA glide x 2, L Ischium PA glide. Self-Care/Home Management Treatment Education Patient Education Home Exercise Program Other Education Discussed and educated pt in proper body mehanics for picking up dogs toys, dusting, vaccuming , washing dishes, washing tub, and making beds. Recommendations with discussion for washing bathtub and dusting (ex-modification with long handled devices, proper body mechanics). Educated pt in use of heat/ice for pain. Activities Self-Care/Home Management Activities Issued & reviewed proper body mechanics for daily activities . PT-OP-T Assessment and Plan Start: 10/09/21 12:17 Freq: Status: Active Protocol: Document 11/06/21 13:41 LRN (Rec: 11/06/21 14:38 LRN [id number]) Physical Therapy Assessment Goals Three Impairment Decreased function (LEFS score of 50 (20-39% impaired)) Short Term Goal (STG) Improve function with pt able to do laundry (reaching up/ down for clothes) and improve LEFS score of no less than 55. STG Duration 11/27/20 Retirement Goal (LTG) Pt will be able to do gentle yoga and volunteer 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 LTG Duration 01/07/22 Two Impairment Bilateral Hip/Low Back Pain rated 8/10 Short Term Goal (STG) Decrease lynne hip/low back pain to no greater than 4/10. STG Duration 11/27/20 Retirement Goal (LTG) Pt will be able to manage her lynne hip/LB pain to a tolerable level (or alleviate the pain) with proper posturing and exercises. LTG Duration 01/07/22 One Impairment Lacks appropriate self care HEP Short Term Goal (STG) Pt educated in proper body mechanics and modality use to help decrease pain. STG Duration 10/20/21 (11/06/21: MET GOAL ) Thread Separator Goal (LTG) Pt will be independent on a self care HEP of low back and hip stretches/strengthening exercises. (10/30/21: Added HEP: Hamstring/LE neural stretch). (11/06/21: Added verbal instructions in thoracic rot - open book ex) LTG Duration 01/07/22 (11/06/21: Progressed) Progress Towards Goals Progress Comments Progressed HEP. Assessment Summary Assessment Pt needed review of LE neural stretch with need for repositioning hold to start with a relaxed posture before straightening leg for exercise . Sacrum is R rotated today, not able to correct with PA glides on R side. Improved tolerance to hip stretches. Pt excessive thoracic kyphosis causes pain at thoracolumbar junction when performing a pelvic anterior tilt for training with squatting, bending forward; therefore improving thoracic ext can reduce strain at T/L junction. Physical Therapy Plan Frequency and Duration Frequency of Treatment 2x/Week Plan of Care Start Date 10/09/21 Plan of Care End Date 01/07/22 Next Visit Focus/Plan Next Note Type Treatment Note Next Visit Plan NOTE: History of Non-Hodgkins Lymphoma w/residual lymphedema after Bone Marrow Transplant in 10/1995. Assess response to body mechanics training. Review Open book ex and issue handout if pt needs pic reminder. Check (remeasure) Piriformis Mobility on R (hip IR) to see if equal to L. Assess pain (STG #2). Review & issue HEP of I/S of TA strengthening program. Monitor sacrum for SB left ( shear to right) and correct if needed. Check for R sacral tight in PA and inferior glide . Add to HEP: Trunk SB R>L & lynne Rot; Strengthening: R hip IR. Postural awareness training against wall. Assess self STM of piriformis and results of sleep positioning education.
--- NOTE | 2021-11-13 13:03 | PT.OTN ---
Current Diagnoses Pain in unspecified hip (11/13/21) Postural kyphosis, thoracic region (11/13/21) Muscle weakness (generalized) (11/13/21) Other abnormalities of gait and mobility (11/13/21) Physical Therapy Treatment Note PT-OP-A Visit Information Start: 10/09/21 12:17 Freq: Status: Active Protocol: Document 11/13/21 12:18 SP (Rec: 11/13/21 13:17 SP [id number]) Out-Patient Physical Therapy Visit Information Visit Information Visit Type Treatment Note Visit Start Time 12:18 Visit Stop Time 13:03 Total Visit Minutes 45 Visit Number 7 Number of NEWSPAPER VENDOR Visits 1 Evaluation Information Evaluation Date 10/09/21 Precautions Precautions Latex allergy. 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 Pt has residual back pain from chemo & radiation therapy. Medication controlled depression/anxiety, hypothyroid, arthritis of the knees. PT-OP-B Current Condition Start: 10/09/21 12:17 Freq: Status: Active Protocol: Document 10/09/21 13:35 LRN (Rec: 10/09/21 17:43 LRN [id number]) Current Condition History of Current Condition Onset Date 08/24/21 (end of Jul) Current Complaints Pain in both hips after repetitive activity and long walks. History of Current Condition When walking (2 miles 3 days/ week), both hips start hurting . With sit rest the pain goes away. 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 Had lymphadema therapy in [place] for it (while in college). Prior Treatments and Tests X-ray, pt states it was negative for bursitis. Future Testing and Treatments Planned None Developmental History Developmental History Going to personal coach. 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 Brain scan was negative for MS . Has done a heart monitor assessment, and treadmill stress test. Appt 11/06/21 with Special Needs Teacher (Dr. Martins from [facility]). 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 PMH: Breast reduction therapy 8yrs ago, Arthritis in knees, Anxiety/Depression controlled by meds, Hypothyroidism. Non-Hodgkins Lymphoma in L groin [id number]. Treatment Goals Patient/Caregiver Goals Pt goal is to manage the pain or get rid of it, do things to help it. 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 Prior Functional Status Baseline Function- ADL's Independent Baseline Function- Mobility Independent Baseline Function- Gait For past 3 yrs walked 2 miles without pain. Baseline Function- Other Wears compression stockings during walk to control onset of numbness in the L foot ( location of Lymphedema and cancer in groin). Current Functional Impairments (Reported) Functional Limitations- ADL's Onset of bilateral hip pain with laundry, cleaning, static standing > 20' Functional Limitations- Mobility/Gait Can walk 3/4 mile on flat ground before bilateral hip pain starts (indicating pain across the low back at the sacral level). Functional Limitations- Recreation/ Pain with gentle yoga Hobbies Functional Limitations- Other Pain with laundry (reaching up /down for clothes), volunteering 2 hours for [employer] ( sweeping and picking up objects). Personal Factors Other Personal Factors That May Effect Has daughter who is Autistic, Therapy/Recovery and is her caregiver, requiring housecleaning and attendance sitting with her. Lives in [place] and has onset of back pain by the time she drives to [email or web address]. L foot sensation impaired (in area of lymphedema) since tumor wrapped around artery in L groin. Arthritis in knees. PT-OP-C Subjective Start: 10/09/21 12:17 Freq: Status: Active Protocol: Document 11/13/21 12:18 SP (Rec: 11/13/21 13:17 SP [id number]) OP-PT Subjective Patient Comments Patient Comments Pt reports pain still R LB 2, L LB 3/10. Feels better after tx but then gets home and starts to do things around the house and pain comes back. Is more aware of body mechanics reviewed last tx and tries best can. Did ex today and seems more tight during tx, starts with LLE to ease RLe before get to it but didn't ease as well this am. Pt reports ball on wall doesn't help her with yoga ball, seems to cause more pain. PT-OP-G Mobility & Gait Start: 10/09/21 12:17 Freq: Status: Active Protocol: Document 10/09/21 13:35 LRN (Rec: 10/09/21 17:43 LRN [id number]) OP Gait Assessment Gait Gait Assistance Required: Independent Able to Maintain Weight Bearing Status Yes During Gait Assistive Devices Assistive Device None Comments Gait Comments Pt notes normal gait. PT-OP-H Neuro Start: 10/09/21 12:17 Freq: Status: Active Protocol: Document 10/09/21 13:35 LRN (Rec: 10/09/21 17:43 LRN [id number]) Sensation Evaluation Gross Sensation Gross Sensation WNL Location Details Left Foot Light Touch Impaired Sharp/Dull Intact/Normal Deep Pressure Intact/Normal Hot/Cold Intact/Normal PT-OP-J Posture/Palpation/Skin Start: 10/09/21 12:17 Freq: Status: Active Protocol: Document 10/09/21 13:35 LRN (Rec: 10/09/21 17:43 LRN [id number]) Posture Evaluation Position Standing Evaluation View all positions Head/C-Spine Posture Forward Head T-Spine Posture Increased Kyphosis Shoulder Posture (L) Elevated Pelvis Posture (L) Iliac Crest Superior Ankle/Foot Posture (L) Forefoot Eversion,(R) Forefoot Eversion Comments Posture Comments Varus of lower legs, slight scoliosis towards bottom of spine (apex is left in upper curve, right in lower curve, reversal at T/L junction). Palpation Assessment Location SIJ Palpation Location R side - decreased mobility for PA and inferior glide. Palpation Findings Soft Tissue Tightness, Tenderness PT-OP-K Range of Motion Start: 10/09/21 12:17 Freq: Status: Active Protocol: Document 10/09/21 13:35 LRN (Rec: 10/09/21 17:43 LRN [id number]) Lumbar Spine Range of Motion Lumbar Spine Active Degrees Testing Position Standing Flexion 90 Extension 18 Rotation Left 25 Rotation Right 25 Lateral Flexion Left 12 Lateral Flexion Right 10 ROM Limitations Pain Comments Trunk flex 90 deg's with 45 deg's hip flexion. Trunk Ext 18 deg's with 3 deg' s hip extension. SB left caused discomfort across sacral area. Rotation left cause R SI pain. Hip Goniometric Range of Motion Hip Right Passive Testing Position Supine Straight Leg Raise 80 Abduction 45 Internal Rotation 25 External Rotation 75 Left Passive Testing Position Supine Straight Leg Raise 85 Abduction 45 Internal Rotation 35 External Rotation 75 Knee Goniometric Range of Motion Knee Right Knee ROM WFL Yes Patient Position Supine Comments WNL Left Knee ROM WFL Yes Patient Position Supine Comments WNL PT-OP-L Special Tests Start: 10/09/21 12:17 Freq: Status: Active Protocol: Document 10/12/21 09:04 LRN (Rec: 10/12/21 09:47 LRN [id number]) Special Tests Hip Special Tests Thigh Thrust Test Test Results - Bilaterally Gaenslen Test Test Results + Right JACKIE Test Results - Bilaterally PT-OP-M Strength Start: 10/09/21 12:17 Freq: Status: Active Protocol: Document 10/09/21 13:35 LRN (Rec: 10/09/21 17:43 LRN [id number]) Trunk Strength Trunk Manual Muscle Testing Testing Position Supine Core Stabilization WNL Hip Strength Hip Manual Muscle Testing Right Flexion (L2) 5 Normal Extension (S1) 5 Normal Abduction 5 Normal Adduction 3- Fair- External Rotation 5 Normal Internal Rotation 4+ Good+ Left Flexion (L2) 5 Normal Extension (S1) 5 Normal Abduction 5 Normal Adduction 5 Normal External Rotation 5 Normal Internal Rotation 5 Normal Knee Strength Knee Manual Muscle Testing Right Flexion (S2) 5 Normal Extension (L3) 5 Normal Left Flexion (S2) 5 Normal Extension (L3) 5 Normal PT-OP-Q Treatments Start: 10/09/21 12:17 Freq: Status: Active Protocol: Document 11/13/21 12:18 SP (Rec: 11/13/21 13:17 SP [id number]) Therapeutic Exercises Supine Exercises LTR Supine Exercise Name added to HEP Side bilateral Equipment Used small towel in LS Reps/Minutes 20 x2 Comments cued set up and form, good feedback response (tried single, caused pain) Hamstring/LE stretch Supine Exercise Name Hamstring/LE neural stretch- reviewed HEP Side bilateral Reps/Minutes 5 slow reps x35 Comments good form and response TA Heel slides Supine Exercise Name double heel slide- progressed HEP Equipment Used small towel roll under LS Reps/Minutes 10x Comments easy, and good TA. TA/Alternate arm lifts Supine Exercise Name bug Side bilateral Equipment Used small towel in LS Reps/Minutes 2x5 Comments progressed with good slow form , painfree range Lateral Hip stretch Supine Exercise Name lateral and medial Side bilateral Equipment Used w / strap Reps/Minutes 30 x2 Comments cued for recall, good form Piriformis stretch Supine Exercise Name hip IR- reviewed HEP Side right Equipment Used supported by BUE Reps/Minutes 1 min Comments good form hip IR Other Exercises quadruped Other Exercise Name cat camel, child's pose (L shld restricted end range), thread needle Side bilateral Equipment Used reviewed self past yoga stretching Reps/Minutes x3 each Comments good feedback response, modified L UE front positioning Manual Therapy Treatment Soft Tissue Mobilization Piriformis Body Location piriformis, glute med Mobilization Type Oscillations,Sustained Pressure,Trigger Point Release Intensity/Depth Moderate Body Position Prone over pillow Comments Noted pain 5/10 over piriformis L & R. Good feedback with release of muscular tension and decrease of pain broad pressure post tx . Sacrum Body Location R Sacrum Mobilization Type Sustained Pressure Body Position Prone Comments PA of R lateral Sacrum. Self-Care/Home Management Treatment Education Patient Education Home Exercise Program Other Education Discussed standing and seated cleaning tub body mechanics- review next tx. Initiated progressive UE/ LE supine- bug today, ITB/ ADD/ LTR/open book stretches with small rolled towel under LS w/ good TA fac and feedback response PT-OP-T Assessment and Plan Start: 10/09/21 12:17 Freq: Status: Active Protocol: Document 11/13/21 12:18 SP (Rec: 11/13/21 13:17 SP [id number]) Physical Therapy Assessment Goals Three Impairment Decreased function (LEFS score of 50 (20-39% impaired)) Short Term Goal (STG) Improve function with pt able to do laundry (reaching up/ down for clothes) and improve LEFS score of no less than 55. STG Duration 11/27/20 [facility] Goal (LTG) Pt will be able to do gentle yoga and volunteer 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 LTG Duration 01/07/22 Two Impairment Bilateral Hip/Low Back Pain rated 8/10 Short Term Goal (STG) Decrease lynne hip/low back pain to no greater than 4/10. STG Duration 11/27/20 [employer] Goal (LTG) Pt will be able to manage her lynne hip/LB pain to a tolerable level (or alleviate the pain) with proper posturing and exercises. LTG Duration 01/07/22 One Impairment Lacks appropriate self care HEP Short Term Goal (STG) Pt educated in proper body mechanics and modality use to help decrease pain. STG Duration 10/20/21 (11/06/21: MET GOAL ) [employer] Goal (LTG) Pt will be independent on a self care HEP of low back and hip stretches/strengthening exercises. (10/30/21: Added HEP: Hamstring/LE neural stretch). (11/06/21: Added verbal instructions in thoracic rot - open book ex) LTG Duration 01/07/22 (11/06/21: Progressed) Assessment Summary Assessment Pt responded well to HEP stretching and additions of LTR and progressive bug with rolled towel support at , provided hand outs for recall. Pt stated painfree leaving. Physical Therapy Plan Frequency and Duration Frequency of Treatment 2x/Week Plan of Care Start Date 10/09/21 Plan of Care End Date 01/07/22 Therapeutic Interventions Therapeutic Interventions Gait Training,Home Exercise Program,Joint Mobilizations, Manual Therapy,Neuromuscular Re-education,Patient/Caregiver Education,Self-Care/Home Management,Soft Tissue Mobilization,Therapeutic Activities,Therapeutic Exercises Modalities Cold Pack/Ice Massage,Hot Packs Next Visit Focus/Plan Next Note Type Treatment Note Next Visit Plan Review HEP needed. Assess response and continue body mechanics training. Assess pain (STG #2). NOTE: History of Non-Hodgkins Lymphoma w/residual lymphedema after Bone Marrow Transplant in 10/1995. Check (remeasure) Piriformis Mobility on R (hip IR) to see if equal to L. Review & issue HEP of I/S of TA strengthening program. Monitor sacrum for SB left ( shear to right) and correct if needed. Check for R sacral tight in PA and inferior glide . Add to HEP: Trunk SB R>L & lynne Rot; Strengthening: R hip IR. Postural awareness training against wall. Assess self STM of piriformis and results of sleep positioning education.
--- NOTE | 2021-11-23 09:50 | PT.OTN ---
Current Diagnoses Pain in unspecified hip (11/23/21) Postural kyphosis, thoracic region (11/23/21) Muscle weakness (generalized) (11/23/21) Other abnormalities of gait and mobility (11/23/21) Physical Therapy Treatment Note PT-OP-A Visit Information Start: 10/09/21 12:17 Freq: Status: Active Protocol: Document 11/23/21 09:04 SP (Rec: 11/23/21 09:51 SP [id number]) Out-Patient Physical Therapy Visit Information Visit Information Visit Type Treatment Note Visit Start Time 09:04 Visit Stop Time 09:50 Total Visit Minutes 46 Visit Number 8 Number of [employer] SUPERVISOR Visits 2 Evaluation Information Evaluation Date 10/09/21 Precautions Precautions Latex allergy. 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 Pt has residual back pain from chemo & radiation therapy. Medication controlled depression/anxiety, hypothyroid, arthritis of the knees. PT-OP-B Current Condition Start: 10/09/21 12:17 Freq: Status: Active Protocol: Document 10/09/21 13:35 LRN (Rec: 10/09/21 17:43 LRN [id number]) Current Condition History of Current Condition Onset Date 08/24/21 (end of Jul) Current Complaints Pain in both hips after repetitive activity and long walks. History of Current Condition When walking (2 miles 3 days/ week), both hips start hurting . With sit rest the pain goes away. 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 Had lymphadema therapy in [place] for it (while in college). Prior Treatments and Tests X-ray, pt states it was negative for bursitis. 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 Brain scan was negative for MS . Has done a heart monitor assessment, and treadmill stress test. Appt 11/06/21 with Manufacturing Accountant (Dr. Martins from [facility]). 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 PMH: Breast reduction therapy 8yrs ago, Arthritis in knees, Anxiety/Depression controlled by meds, Hypothyroidism. Non-Hodgkins Lymphoma in L groin [id number]. Treatment Goals Patient/Caregiver Goals Pt goal is to manage the pain or get rid of it, do things to help it. 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 Prior Functional Status Baseline Function- ADL's Independent Baseline Function- Mobility Independent Baseline Function- Gait For past 3 yrs walked 2 miles without pain. Baseline Function- Other Wears compression stockings during walk to control onset of numbness in the L foot ( location of Lymphedema and cancer in groin). Current Functional Impairments (Reported) Functional Limitations- ADL's Onset of bilateral hip pain with laundry, cleaning, static standing > 20' Functional Limitations- Mobility/Gait Can walk 3/4 mile on flat ground before bilateral hip pain starts (indicating pain across the low back at the sacral level). Functional Limitations- Recreation/ Pain with gentle yoga Hobbies Functional Limitations- Other Pain with laundry (reaching up /down for clothes), volunteering 2 hours for [employer] ( sweeping and picking up objects). Personal Factors Other Personal Factors That May Effect Has daughter who is Autistic, Therapy/Recovery and is her caregiver, requiring housecleaning and attendance sitting with her. Lives in [place] and has onset of back pain by the time she drives to [employer]. L foot sensation impaired (in area of lymphedema) since tumor wrapped around artery in L groin. Arthritis in knees. PT-OP-C Subjective Start: 10/09/21 12:17 Freq: Status: Active Protocol: Document 11/23/21 09:04 SP (Rec: 11/23/21 09:51 SP [id number]) OP-PT Subjective Patient Comments Patient Comments Pt reports not having pain yet today, stated took her 1 hr to get here with bad roads from [place]. Pt states some day harder that other, easier to do HEP in am than later in day. Pt states taking magnesium 400 mg. PT-OP-G Mobility & Gait Start: 10/09/21 12:17 Freq: Status: Active Protocol: Document 10/09/21 13:35 LRN (Rec: 10/09/21 17:43 LRN [id number]) OP Gait Assessment Gait Gait Assistance Required: Independent Able to Maintain Weight Bearing Status Yes During Gait Assistive Devices Assistive Device None Comments Gait Comments Pt notes normal gait. PT-OP-H Neuro Start: 10/09/21 12:17 Freq: Status: Active Protocol: Document 10/09/21 13:35 LRN (Rec: 10/09/21 17:43 LRN [id number]) Sensation Evaluation Gross Sensation Gross Sensation WNL Location Details Left Foot Light Touch Impaired Sharp/Dull Intact/Normal Deep Pressure Intact/Normal Hot/Cold Intact/Normal PT-OP-J Posture/Palpation/Skin Start: 10/09/21 12:17 Freq: Status: Active Protocol: Document 10/09/21 13:35 LRN (Rec: 10/09/21 17:43 LRN [id number]) Posture Evaluation Position Standing Evaluation View all positions Head/C-Spine Posture Forward Head T-Spine Posture Increased Kyphosis Shoulder Posture (L) Elevated Pelvis Posture (L) Iliac Crest Superior Ankle/Foot Posture (L) Forefoot Eversion,(R) Forefoot Eversion Comments Posture Comments Varus of lower legs, slight scoliosis towards bottom of spine (apex is left in upper curve, right in lower curve, reversal at T/L junction). Palpation Assessment Location SIJ Palpation Location R side - decreased mobility for PA and inferior glide. Palpation Findings Soft Tissue Tightness, Tenderness PT-OP-K Range of Motion Start: 10/09/21 12:17 Freq: Status: Active Protocol: Document 10/09/21 13:35 LRN (Rec: 10/09/21 17:43 LRN [id number]) Lumbar Spine Range of Motion Lumbar Spine Active Degrees Testing Position Standing Flexion 90 Extension 18 Rotation Left 25 Rotation Right 25 Lateral Flexion Left 12 Lateral Flexion Right 10 ROM Limitations Pain Comments Trunk flex 90 deg's with 45 deg's hip flexion. Trunk Ext 18 deg's with 3 deg' s hip extension. SB left caused discomfort across sacral area. Rotation left cause R SI pain. Hip Goniometric Range of Motion Hip Right Passive Testing Position Supine Straight Leg Raise 80 Abduction 45 Internal Rotation 25 External Rotation 75 Left Passive Testing Position Supine Straight Leg Raise 85 Abduction 45 Internal Rotation 35 External Rotation 75 Knee Goniometric Range of Motion Knee Right Knee ROM WFL Yes Patient Position Supine Comments WNL Left Knee ROM WFL Yes Patient Position Supine Comments WNL PT-OP-L Special Tests Start: 10/09/21 12:17 Freq: Status: Active Protocol: Document 10/12/21 09:04 LRN (Rec: 10/12/21 09:47 LRN [id number]) Special Tests Hip Special Tests Thigh Thrust Test Test Results - Bilaterally Gaenslen Test Test Results + Right JACKIE Test Results - Bilaterally PT-OP-M Strength Start: 10/09/21 12:17 Freq: Status: Active Protocol: Document 10/09/21 13:35 LRN (Rec: 10/09/21 17:43 LRN [id number]) Trunk Strength Trunk Manual Muscle Testing Testing Position Supine Core Stabilization WNL Hip Strength Hip Manual Muscle Testing Right Flexion (L2) 5 Normal Extension (S1) 5 Normal Abduction 5 Normal Adduction 3- Fair- External Rotation 5 Normal Internal Rotation 4+ Good+ Left Flexion (L2) 5 Normal Extension (S1) 5 Normal Abduction 5 Normal Adduction 5 Normal External Rotation 5 Normal Internal Rotation 5 Normal Knee Strength Knee Manual Muscle Testing Right Flexion (S2) 5 Normal Extension (L3) 5 Normal Left Flexion (S2) 5 Normal Extension (L3) 5 Normal PT-OP-Q Treatments Start: 10/09/21 12:17 Freq: Status: Active Protocol: Document 11/23/21 09:04 SP (Rec: 11/23/21 09:51 SP [id number]) Therapeutic Exercises Supine Exercises Hamstring/LE stretch Supine Exercise Name Hamstring/LE neural stretch- reviewed HEP Side bilateral Reps/Minutes 5 slow reps x35 Comments good form and response TA Heel slides Supine Exercise Name double heel slide- progressed HEP Equipment Used small towel roll under LS Reps/Minutes 10x Comments good TA, painfree. TA/Alternate arm lifts Supine Exercise Name bug Side bilateral Equipment Used small towel in LS Reps/Minutes 2x5 Comments progressed with good slow form , painfree range Lateral Hip stretch Supine Exercise Name lateral ITB and medial Adductor stretch Side bilateral Resistance reviewed HEP Equipment Used w / strap Reps/Minutes 30 x2 Comments cued for recall, good form Piriformis stretch Supine Exercise Name hip IR- reviewed HEP Side right Equipment Used w/ strap Reps/Minutes 1 min Comments good form hip IR stretch Sidelying Exercises Thoracic Rot Stretch Sidelying Exercise Name Open Book stretch Side bilateral Resistance reviewed HEP Reps/Minutes 3 Hold x 10 Comments good form painfree Sitting Exercises hip adduction isometric Sitting Exercise Name added to HEP Side bilateral Reps/Minutes 10s x5 Comments good postural alignment, TA and hip adduction muscle fac, painfree Standing Exercises posture w/ dowel Standing Exercise Name discussed carryover from wall posture and apply w/ ADLs Equipment Used dowel Reps/Minutes 5 min Comments alignment, hip hinge, discussion apply with ADLs self STMs Standing Exercise Name paraspinal, glut med Equipment Used racquetball roll Comments Little wall posture Standing Exercise Name segmental roll up TA- added to HEP Equipment Used postural wall roll up Reps/Minutes 3 reps x10 sec hold Comments good TA facilitation, unable to get head back on wall at this time Self-Care/Home Management Treatment Education Patient Education Home Exercise Program Other Education Initiated wall posture and hip adduction isometric with more TA and hip working, self corrections with cues for pelvic alignment. Further discussion on body mechanics using dowel postural awareness carryover from wall posture using dowel assimulation dishes, vacuuming, laundry. Good understanding and found dowel a good tool can use broom at home when needed. PT-OP-T Assessment and Plan Start: 10/09/21 12:17 Freq: Status: Active Protocol: Document 11/23/21 09:04 SP (Rec: 11/23/21 09:51 SP [id number]) Physical Therapy Assessment Goals Three Impairment Decreased function (LEFS score of 50 (20-39% impaired)) Short Term Goal (STG) Improve function with pt able to do laundry (reaching up/ down for clothes) and improve LEFS score of no less than 55. 11/23/21: Progressing: no pain putting in/ out machines but folding and putting it away is still hard to do. STG Duration 11/27/20 (progressing 11/23/21) Visual Arts Teacher Goal (LTG) Pt will be able to do gentle yoga and volunteer 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 11/23/21: has not been able to do yoga due to pain and [employer] is off for couple weeks and unavailable. LTG Duration 01/07/22 (11/23/21 updated) Two Impairment Bilateral Hip/Low Back Pain rated 8/10 Short Term Goal (STG) Decrease lynne hip/low back pain to no greater than 4/10. 11/23/21: hip and LBP 6-8/10 and hip are starting to ache. STG Duration 11/27/20 Shelter Goal (LTG) Pt will be able to manage her lynne hip/LB pain to a tolerable level (or alleviate the pain) with proper posturing and exercises. 11/23/21: states is trying to be more aware of seated posture and improved with self corrections of more errect posture. LTG Duration 01/07/22 (11/23/21 progressing ) One Impairment Lacks appropriate self care HEP Short Term Goal (STG) Pt educated in proper body mechanics and modality use to help decrease pain. STG Duration 10/20/21 (11/06/21: MET GOAL ) Visual Arts Teacher Goal (LTG) Pt will be independent on a self care HEP of low back and hip stretches/strengthening exercises. (10/30/21: Added HEP: Hamstring/LE neural stretch). (11/06/21: Added verbal instructions in thoracic rot - open book ex) 11/11/21: initiated hip ITB & adductor stretch, open book. . LTG Duration 01/07/22 (11/11/21: Progressed) Assessment Summary Assessment Pt improved with core facilitation, decreased LBP recruitment with cues for TA draw in and PPT corrections during bug, wall posture. Pt better understanding of postural/ pelvis corrections, alignment end of tx for carryover at home HEP. Pt assessed self STMs for tightness over lumbar paraspinals today with improved response in stagger stance not leaning into ball as aggressively R better than L. Physical Therapy Plan Frequency and Duration Frequency of Treatment 2x/Week Plan of Care Start Date 10/09/21 Plan of Care End Date 01/07/22 Therapeutic Interventions Therapeutic Interventions Gait Training,Home Exercise Program,Joint Mobilizations, Manual Therapy,Neuromuscular Re-education,Patient/Caregiver Education,Self-Care/Home Management,Soft Tissue Mobilization,Therapeutic Activities,Therapeutic Exercises Modalities Cold Pack/Ice Massage,Hot Packs Next Visit Focus/Plan Next Note Type Treatment Note Next Visit Plan Review HEP. Recheck added hip adduction isometric, child's pose, thread needle stretching . Continue body mechanics training. NOTE: History of Non-Hodgkins Lymphoma w/residual lymphedema after Bone Marrow Transplant in 10/1995. Check (remeasure) Piriformis Mobility on R (hip IR) to see if equal to L. Review & issue HEP of I/S of TA strengthening program. Monitor sacrum for SB left ( shear to right) and correct if needed. Check for R sacral tight in PA and inferior glide . Add to HEP: Trunk SB R>L & lynne Rot; Strengthening: R hip IR. Postural awareness training against wall. Assess self STM of piriformis and results of sleep positioning education.
--- NOTE | 2021-11-27 14:42 | PT.OTN ---
Current Diagnoses Pain in unspecified hip (11/27/21) Postural kyphosis, thoracic region (11/27/21) Muscle weakness (generalized) (11/27/21) Other abnormalities of gait and mobility (11/27/21) Physical Therapy Treatment Note PT-OP-A Visit Information Start: 10/09/21 12:17 Freq: Status: Active Protocol: Document 11/27/21 11:28 LRN (Rec: 11/27/21 12:27 LRN [id number]) Out-Patient Physical Therapy Visit Information Visit Information Visit Type Treatment Note Visit Start Time 11:28 Visit Stop Time 12:15 Total Visit Minutes 47 Visit Number 9 Evaluation Information Evaluation Date 10/09/21 Precautions Precautions Latex allergy. 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 Pt has residual back pain from chemo & radiation therapy. Medication controlled depression/anxiety, hypothyroid, arthritis of the knees. PT-OP-B Current Condition Start: 10/09/21 12:17 Freq: Status: Active Protocol: Document 10/09/21 13:35 LRN (Rec: 10/09/21 17:43 LRN [id number]) Current Condition History of Current Condition Onset Date 08/24/21 (end of Jul) Current Complaints Pain in both hips after repetitive activity and long walks. History of Current Condition When walking (2 miles 3 days/ week), both hips start hurting . With sit rest the pain goes away. 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 Had lymphadema therapy in [place] for it (while in college). Prior Treatments and Tests X-ray, pt states it was negative for bursitis. Future Testing and Treatments Planned None Developmental History Developmental History Going to ob tech. 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 Brain scan was negative for MS . Has done a heart monitor assessment, and treadmill stress test. Appt 11/06/21 with Planner/Scheduler (Dr. Martins from [facility]). 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 PMH: Breast reduction therapy 8yrs ago, Arthritis in knees, Anxiety/Depression controlled by meds, Hypothyroidism. Non-Hodgkins Lymphoma in L groin [phone]. Treatment Goals Patient/Caregiver Goals Pt goal is to manage the pain or get rid of it, do things to help it. 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 Prior Functional Status Baseline Function- ADL's Independent Baseline Function- Mobility Independent Baseline Function- Gait For past 3 yrs walked 2 miles without pain. Baseline Function- Other Wears compression stockings during walk to control onset of numbness in the L foot ( location of Lymphedema and cancer in groin). Current Functional Impairments (Reported) Functional Limitations- ADL's Onset of bilateral hip pain with laundry, cleaning, static standing > 20' Functional Limitations- Mobility/Gait Can walk 3/4 mile on flat ground before bilateral hip pain starts (indicating pain across the low back at the sacral level). Functional Limitations- Recreation/ Pain with gentle yoga Hobbies Functional Limitations- Other Pain with laundry (reaching up /down for clothes), volunteering 2 hours for [employer] ( sweeping and picking up objects). Personal Factors Other Personal Factors That May Effect Has daughter who is Autistic, Therapy/Recovery and is her caregiver, requiring housecleaning and attendance sitting with her. Lives in [place] and has onset of back pain by the time she drives to [employer]. L foot sensation impaired (in area of lymphedema) since tumor wrapped around artery in L groin. Arthritis in knees. PT-OP-C Subjective Start: 10/09/21 12:17 Freq: Status: Active Protocol: Document 11/27/21 11:28 LRN (Rec: 11/27/21 12:27 LRN [id number]) OP-PT Subjective Patient Comments Patient Comments Pain in LB is 4/[address] and sitting in waiting room. Doing proper body mechanics has helped when washing dishes. Tomorrow plan to start gentle yoga (has been a month). PT-OP-G Mobility & Gait Start: 10/09/21 12:17 Freq: Status: Active Protocol: Document 10/09/21 13:35 LRN (Rec: 10/09/21 17:43 LRN [id number]) OP Gait Assessment Gait Gait Assistance Required: Independent Able to Maintain Weight Bearing Status Yes During Gait Assistive Devices Assistive Device None Comments Gait Comments Pt notes normal gait. PT-OP-H Neuro Start: 10/09/21 12:17 Freq: Status: Active Protocol: Document 10/09/21 13:35 LRN (Rec: 10/09/21 17:43 LRN [id number]) Sensation Evaluation Gross Sensation Gross Sensation WNL Location Details Left Foot Light Touch Impaired Sharp/Dull Intact/Normal Deep Pressure Intact/Normal Hot/Cold Intact/Normal PT-OP-J Posture/Palpation/Skin Start: 10/09/21 12:17 Freq: Status: Active Protocol: Document 10/09/21 13:35 LRN (Rec: 10/09/21 17:43 LRN [id number]) Posture Evaluation Position Standing Evaluation View all positions Head/C-Spine Posture Forward Head T-Spine Posture Increased Kyphosis Shoulder Posture (L) Elevated Pelvis Posture (L) Iliac Crest Superior Ankle/Foot Posture (L) Forefoot Eversion,(R) Forefoot Eversion Comments Posture Comments Varus of lower legs, slight scoliosis towards bottom of spine (apex is left in upper curve, right in lower curve, reversal at T/L junction). Palpation Assessment Location SIJ Palpation Location R side - decreased mobility for PA and inferior glide. Palpation Findings Soft Tissue Tightness, Tenderness PT-OP-K Range of Motion Start: 10/09/21 12:17 Freq: Status: Active Protocol: Document 11/27/21 11:28 LRN (Rec: 11/27/21 12:27 LRN [id number]) Hip Goniometric Range of Motion Hip Right Passive Testing Position Supine Internal Rotation 25 External Rotation 85 Left Passive Testing Position Supine Internal Rotation 35 External Rotation 85 PT-OP-L Special Tests Start: 10/09/21 12:17 Freq: Status: Active Protocol: Document 10/12/21 09:04 LRN (Rec: 10/12/21 09:47 LRN [id number]) Special Tests Hip Special Tests Thigh Thrust Test Test Results - Bilaterally Gaenslen Test Test Results + Right JACKIE Test Results - Bilaterally PT-OP-M Strength Start: 10/09/21 12:17 Freq: Status: Active Protocol: Document 10/09/21 13:35 LRN (Rec: 10/09/21 17:43 LRN [id number]) Trunk Strength Trunk Manual Muscle Testing Testing Position Supine Core Stabilization WNL Hip Strength Hip Manual Muscle Testing Right Flexion (L2) 5 Normal Extension (S1) 5 Normal Abduction 5 Normal Adduction 3- Fair- External Rotation 5 Normal Internal Rotation 4+ Good+ Left Flexion (L2) 5 Normal Extension (S1) 5 Normal Abduction 5 Normal Adduction 5 Normal External Rotation 5 Normal Internal Rotation 5 Normal Knee Strength Knee Manual Muscle Testing Right Flexion (S2) 5 Normal Extension (L3) 5 Normal Left Flexion (S2) 5 Normal Extension (L3) 5 Normal PT-OP-Q Treatments Start: 10/09/21 12:17 Freq: Status: Active Protocol: Document 11/27/21 11:28 LRN (Rec: 11/27/21 12:27 LRN [id number]) Therapeutic Exercises Supine Exercises TA Heel slides Supine Exercise Name double heel slide- progressed HEP Equipment Used Held small towel in LS, instead pt held Neutral spine Reps/Minutes 10x 2 Comments good TA, painfree. TA/Alternate arm lifts Supine Exercise Name bug Side bilateral Equipment Used Instead of a small towel in LS , pt held Neutral spine Reps/Minutes 10x 2 Comments progressed with good slow form , painfree range Lateral Hip stretch Supine Exercise Name lateral ITB and medial Adductor stretch Side bilateral Resistance reviewed HEP Equipment Used w / strap Reps/Minutes 30 x2 Comments cued for recall, good form Piriformis stretch Supine Exercise Name hip IR- reviewed HEP Side right Equipment Used w/ strap Reps/Minutes 1 min Comments good form hip IR stretch Sitting Exercises Roll in/out w/PF contraction Sitting Exercise Name Roll in/outs w/PF contraction. Side bilateral Reps/Minutes 3' Comments Extra time for training of equal symmetru of start position and w/ex. hip adduction isometric Sitting Exercise Name Hip AD Isometric Side bilateral Reps/Minutes 10s x5 Comments good postural alignment, TA and hip adduction muscle fac, painfree Standing Exercises self STMs Standing Exercise Name paraspinal, glut med Equipment Used pt's racquetball roll Comments pain on R, pressure on L. Other Exercises quadruped Other Exercise Name Child's pose, thread needle for thoracic stretching. Side bilateral Reps/Minutes 60 stretch Manual Therapy Treatment Soft Tissue Mobilization Balancing of Sacrum Body Location Balancing Sacrum/Ilium Mobilization Type Sustained Pressure Intensity/Depth Moderate Body Position Prone Comments Inferior glide, R Sacral sulcus, PA Ischium. Approximation SI/Ischium in parallel and cross body bilaterally. Extra time teaching stabilization of core when moving out of treatment position. Piriformis Body Location R Piriformis Mobilization Type Sustained Pressure Intensity/Depth Moderate Body Position Prone Sacrum Body Location R ISABELLE & upper Sacral border Mobilization Type Sustained Pressure Body Position Prone Comments PA of R lateral Sacrum, painfree pressure. Self-Care/Home Management Treatment Education Patient Education Safety Other Education Discussed yoga class, appropriate ex's. PT-OP-T Assessment and Plan Start: 10/09/21 12:17 Freq: Status: Active Protocol: Document 11/27/21 11:28 LRN (Rec: 11/27/21 12:27 LRN [id number]) Physical Therapy Assessment Goals Three Impairment Decreased function (LEFS score of 50 (20-39% impaired)) Short Term Goal (STG) Improve function with pt able to do laundry (reaching up/ down for clothes) and improve LEFS score of no less than 55. 11/23/21: Progressing: no pain putting in/ out machines but folding and putting it away is still hard to do. 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 11/23/21: has not been able to do yoga due to pain and [employer] is off for couple weeks and unavailable. LTG Duration 01/07/22 (11/23/21 updated) Two Impairment Bilateral Hip/Low Back Pain rated 8/10 Short Term Goal (STG) Decrease lynne hip/low back pain to no greater than 4/10. 11/23/21: hip and LBP 6-8/10 and hip are starting to ache. STG Duration 11/27/20 Work Checker Goal (LTG) Pt will be able to manage her lynne hip/LB pain to a tolerable level (or alleviate the pain) with proper posturing and exercises. 11/23/21: states is trying to be more aware of seated posture and improved with self corrections of more errect posture. LTG Duration 01/07/22 (11/23/21 progressing ) One Impairment Lacks appropriate self care HEP Short Term Goal (STG) Pt educated in proper body mechanics and modality use to help decrease pain. STG Duration 10/20/21 (11/06/21: MET GOAL ) Work Checker Goal (LTG) Pt will be independent on a self care HEP of low back and hip stretches/strengthening exercises. (10/30/21: Added HEP: Hamstring/LE neural stretch). (11/06/21: Added verbal instructions in thoracic rot - open book ex) 11/11/21: initiated hip ITB & adductor stretch, open book. . LTG Duration 01/07/22 (11/11/21: Progressed) Assessment Summary Assessment Pt has good recall of last issued HEP (hip adduction isometric, child's pose, thread the needle) and use of ball for self STM. Use of ball for STM of piriformis is painful on the L side ( pressure felt on R side). Hip IR remains tight (R>L), but hip ER has improved in mobility. Sacrum is tight R for infer glide, R rotated, & L SB. Not able to correct ISABELLE sheared to the right or rotation, probably due to tight L Piriformis (R Piriformis appears tight to stabilize Sacrum). Pt is feeling ready to return to yoga and is planning on trying to resume. Physical Therapy Plan Frequency and Duration Frequency of Treatment 2x/Week Plan of Care Start Date 10/09/21 Plan of Care End Date 01/07/22 Next Visit Focus/Plan Next Note Type Treatment Note Next Visit Plan NOTE: History of Non-Hodgkins Lymphoma w/residual lymphedema after Bone Marrow Transplant in 10/1995. LEFS & Pain Grid Assessment. Assess pt response to return to yoga. 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 Recheck self STM with ball for pressure on Piriformis vs SIJ . Discuss sitting posture in car to minimize pain. Focus of stretch is on improving hip IR (piriformis) and LB flex mobility. Check ( remeasure) Piriformis Mobility on R (hip IR) to see if equal to L. Add to HEP: Trunk SB R>L & lynne Rot; Strengthening: R hip IR. Review & issue HEP of I/S of TA strengthening program. Assess results of sleep positioning education. Monitor sacrum for SB left ( correct by shearing ISABELLE to left). Check for R sacral tight in PA and inferior glide .
--- NOTE | 2021-12-04 17:17 | PT.OTN ---
Current Diagnoses Pain in unspecified hip (12/04/21) Postural kyphosis, thoracic region (12/04/21) Muscle weakness (generalized) (12/04/21) Other abnormalities of gait and mobility (12/04/21) Physical Therapy Treatment Note PT-OP-A Visit Information Start: 10/09/21 12:17 Freq: Status: Active Protocol: Document 12/04/21 08:16 LRN (Rec: 12/04/21 09:05 LRN [id number]) Out-Patient Physical Therapy Visit Information Visit Information Visit Type Progress Note Visit Start Time 08:16 Visit Stop Time 09:00 Total Visit Minutes 44 Visit Number 10 Evaluation Information Evaluation Date 10/09/21 Precautions Precautions Latex allergy. 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 Pt has residual back pain from chemo & radiation therapy. Medication controlled depression/anxiety, hypothyroid, arthritis of the knees. PT-OP-B Current Condition Start: 10/09/21 12:17 Freq: Status: Active Protocol: Document 10/09/21 13:35 LRN (Rec: 10/09/21 17:43 LRN [id number]) Current Condition History of Current Condition Onset Date 08/24/21 (end of Jul) Current Complaints Pain in both hips after repetitive activity and long walks. History of Current Condition When walking (2 miles 3 days/ week), both hips start hurting . With sit rest the pain goes away. 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 Had lymphadema therapy in [place] for it (while in college). Prior Treatments and Tests X-ray, pt states it was negative for bursitis. Future Testing and Treatments Planned None Developmental History Developmental History Going to [employer]. 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 Brain scan was negative for MS . Has done a heart monitor assessment, and treadmill stress test. Appt 11/06/21 with Manager Rn Case (Dr. Martins from [facility]). 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 PMH: Breast reduction therapy 8yrs ago, Arthritis in knees, Anxiety/Depression controlled by meds, Hypothyroidism. Non-Hodgkins Lymphoma in L groin [id number]. Treatment Goals Patient/Caregiver Goals Pt goal is to manage the pain or get rid of it, do things to help it. 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 Prior Functional Status Baseline Function- ADL's Independent Baseline Function- Mobility Independent Baseline Function- Gait For past 3 yrs walked 2 miles without pain. Baseline Function- Other Wears compression stockings during walk to control onset of numbness in the L foot ( location of Lymphedema and cancer in groin). Current Functional Impairments (Reported) Functional Limitations- ADL's Onset of bilateral hip pain with laundry, cleaning, static standing > 20' Functional Limitations- Mobility/Gait Can walk 3/4 mile on flat ground before bilateral hip pain starts (indicating pain across the low back at the sacral level). Functional Limitations- Recreation/ Pain with gentle yoga Hobbies Functional Limitations- Other Pain with laundry (reaching up /down for clothes), volunteering 2 hours for [employer] ( sweeping and picking up objects). Personal Factors Other Personal Factors That May Effect Has daughter who is Autistic, Therapy/Recovery and is her caregiver, requiring housecleaning and attendance sitting with her. Lives in [place] and has onset of back pain by the time she drives to [place]. L foot sensation impaired (in area of lymphedema) since tumor wrapped around artery in L groin. Arthritis in knees. PT-OP-C Subjective Start: 10/09/21 12:17 Freq: Status: Active Protocol: Document 12/04/21 08:16 LRN (Rec: 12/04/21 09:05 LRN [id number]) OP-PT Subjective Patient Comments Patient Comments Did yoga twice and first time was really good, second time teacher did some things she couldn't do yet. Hip pain is 3/10, since taking down her fake Xmas tree, states it was heavy, then did ballroom dancing. Started on Sat of last week and has been gradually getting better. After 2 hrs of sweeping had a lot of pain and needed to lie down for 2 hrs. Patient Questionnaires Lower Extremity Functional Scale LEFS Score 48 LEFS Impairment 20 to 39% Impaired (Score 48- 62) PT-OP-G Mobility & Gait Start: 10/09/21 12:17 Freq: Status: Active Protocol: Document 10/09/21 13:35 LRN (Rec: 10/09/21 17:43 LRN [id number]) OP Gait Assessment Gait Gait Assistance Required: Independent Able to Maintain Weight Bearing Status Yes During Gait Assistive Devices Assistive Device None Comments Gait Comments Pt notes normal gait. PT-OP-H Neuro Start: 10/09/21 12:17 Freq: Status: Active Protocol: Document 10/09/21 13:35 LRN (Rec: 10/09/21 17:43 LRN [id number]) Sensation Evaluation Gross Sensation Gross Sensation WNL Location Details Left Foot Light Touch Impaired Sharp/Dull Intact/Normal Deep Pressure Intact/Normal Hot/Cold Intact/Normal PT-OP-J Posture/Palpation/Skin Start: 10/09/21 12:17 Freq: Status: Active Protocol: Document 10/09/21 13:35 LRN (Rec: 10/09/21 17:43 LRN [id number]) Posture Evaluation Position Standing Evaluation View all positions Head/C-Spine Posture Forward Head T-Spine Posture Increased Kyphosis Shoulder Posture (L) Elevated Pelvis Posture (L) Iliac Crest Superior Ankle/Foot Posture (L) Forefoot Eversion,(R) Forefoot Eversion Comments Posture Comments Varus of lower legs, slight scoliosis towards bottom of spine (apex is left in upper curve, right in lower curve, reversal at T/L junction). Palpation Assessment Location SIJ Palpation Location R side - decreased mobility for PA and inferior glide. Palpation Findings Soft Tissue Tightness, Tenderness PT-OP-K Range of Motion Start: 10/09/21 12:17 Freq: Status: Active Protocol: Document 11/27/21 11:28 LRN (Rec: 11/27/21 12:27 LRN [id number]) Hip Goniometric Range of Motion Hip Right Passive Testing Position Supine Internal Rotation 25 External Rotation 85 Left Passive Testing Position Supine Internal Rotation 35 External Rotation 85 PT-OP-L Special Tests Start: 10/09/21 12:17 Freq: Status: Active Protocol: Document 10/12/21 09:04 LRN (Rec: 10/12/21 09:47 LRN [id number]) Special Tests Hip Special Tests Thigh Thrust Test Test Results - Bilaterally Gaenslen Test Test Results + Right JACKIE Test Results - Bilaterally PT-OP-M Strength Start: 10/09/21 12:17 Freq: Status: Active Protocol: Document 10/09/21 13:35 LRN (Rec: 10/09/21 17:43 LRN [id number]) Trunk Strength Trunk Manual Muscle Testing Testing Position Supine Core Stabilization WNL Hip Strength Hip Manual Muscle Testing Right Flexion (L2) 5 Normal Extension (S1) 5 Normal Abduction 5 Normal Adduction 3- Fair- External Rotation 5 Normal Internal Rotation 4+ Good+ Left Flexion (L2) 5 Normal Extension (S1) 5 Normal Abduction 5 Normal Adduction 5 Normal External Rotation 5 Normal Internal Rotation 5 Normal Knee Strength Knee Manual Muscle Testing Right Flexion (S2) 5 Normal Extension (L3) 5 Normal Left Flexion (S2) 5 Normal Extension (L3) 5 Normal PT-OP-Q Treatments Start: 10/09/21 12:17 Freq: Status: Active Protocol: Document 12/04/21 08:16 LRN (Rec: 12/04/21 09:05 LRN [id number]) Therapeutic Exercises Sitting Exercises Proper sitting posture Sitting Exercise Name Using soft roll & ball to promote proper sitting with and w/o back support Reps/Minutes 5' Comments Pt appeared to have a good understanding for proper sitting posture. Standing Exercises Side stepping Standing Exercise Name Core strengthening - side stepping. COG, Above COG, under & below breasts Side bilateral Equipment Used Lev 2 TB & White strap Sweeping training Standing Exercise Name Body mechanics trianing for sweeping Side bilateral Reps/Minutes 8' Comments Much v cuing and some phy cues for posture and mechanics. wall posture Standing Exercise Name postural wall standing after sweeping Equipment Used postural wall standing Reps/Minutes 2' Comments good TA facilitation, unable to get head back on wall at this time Manual Therapy Treatment Soft Tissue Mobilization QL/Along SIJ Body Location Norman QL along Iliac Crest and along SIJ Mobilization Type Strumming,Sustained Pressure, Other Intensity/Depth MIld to mod Body Position Prone Self-Care/Home Management Treatment Activities Self-Care/Home Management Activities Issued White strap for TBand doorway strengthening. PT-OP-T Assessment and Plan Start: 10/09/21 12:17 Freq: Status: Active Protocol: Document 12/04/21 08:16 LRN (Rec: 12/04/21 09:05 LRN [id number]) Physical Therapy Assessment Evaluation Complexity Number of Personal Factors/Comorbidities 3 or More Number of Body Systems Impaired 4 or More Clinical Presentation at Evaluation Evolving Impairments Impairments Activity Tolerance,Gait,Pain, Posture,ROM,Soft Tissue Mobility,Strength Goals Three Impairment Decreased function (LEFS score of 50 (20-39% impaired)) Short Term Goal (STG) Improve function with pt able to do laundry (reaching up/ down for clothes) and improve LEFS score of no less than 55. (11/23/21: Progressing: no pain putting in/ out machines but folding and putting it away is still hard to do). 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 11/23/21: has not been able to do yoga due to pain and [employer] is off for couple weeks and unavailable. (12/04/21: Has returned to yoga. Not able to sweep 2 hrs due to pain. Has pain with walking). LTG Duration 01/15/22 (12/04/21: Partially met goal, returned to yoga) Two Impairment Bilateral Hip/Low Back Pain rated 8/10 Short Term Goal (STG) Decrease norman hip/low back pain to no greater than 4/10. 11/23/21: hip and LBP 6-8/10 and hip are starting to ache. (12/04/21: Hip pain 3/10). STG Duration 11/27/20 (12/04/21: MET GOAL) Residential Goal (LTG) Pt will be able to manage her norman hip/LB pain to a tolerable level (or alleviate the pain) with proper posturing and exercises. 11/23/21: states is trying to be more aware of seated posture and improved with self corrections of more errect posture. LTG Duration 01/15/22 (11/23/21 progressing ) One Impairment Lacks appropriate self care HEP Short Term Goal (STG) Pt educated in proper body mechanics and modality use to help decrease pain. STG Duration 10/20/21 (11/06/21: MET GOAL ) Mft Goal (LTG) Pt will be independent on a self care HEP of low back and hip stretches/strengthening exercises. (10/30/21: Added HEP: Hamstring/LE neural stretch). (11/06/21: Added verbal instructions in thoracic rot - open book ex) 11/11/21: initiated hip ITB & adductor stretch, open book. . LTG Duration 01/15/22 (11/11/21: Progressed) Progress Towards Goals Progress Comments Reported reduction in Norman Hip pain rated 3/10, although pt's Pain Assessment Grid shows pain in back 4/10, and along iliac crest as 5/10. Assessment Summary Assessment LEFS score is 48 (20-39% impaired), initially was 50, showing slight worsening of function. Her pain today is rated 5/10, per pain assessment grid, but subjectively feports only having hip pain rated 3/10. Pt has reported being able to return to her yoga ex with modification of exercise. She appears to have a good understanding of using a small ball for decreasing pain from trigger points in the R hip. 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 Physical Therapy Plan Frequency and Duration Frequency of Treatment 2x/Week Plan of Care Start Date 10/09/21 Plan of Care End Date 01/15/22 Therapeutic Interventions Therapeutic Interventions Gait Training,Home Exercise Program,Joint Mobilizations, Manual Therapy,Neuromuscular Re-education,Patient/Caregiver Education,Self-Care/Home Management,Soft Tissue Mobilization,Therapeutic Activities,Therapeutic Exercises Modalities Cold Pack/Ice Massage,Hot Packs Next Visit Focus/Plan Next Note Type Treatment Note Next Visit Plan NOTE: History of Non-Hodgkins Lymphoma w/residual lymphedema after Bone Marrow Transplant in 10/1995. 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 Focus of stretch is on improving hip IR (piriformis) and LB flex mobility. Check (remeasure) Piriformis Mobility on R (hip IR) to see if equal to L. Add to HEP: Trunk SB R>L & norman Rot; Strengthening: R hip IR. Review & issue HEP of I/S of TA strengthening program. Assess results of sleep positioning education. Monitor sacrum for SB left ( correct by shearing ISABELLE to left). Check for R sacral tight in PA and inferior glide .
--- NOTE | 2021-12-11 12:21 | PT.OTN ---
Current Diagnoses Pain in unspecified hip (12/11/21) Postural kyphosis, thoracic region (12/11/21) Muscle weakness (generalized) (12/11/21) Other abnormalities of gait and mobility (12/11/21) Physical Therapy Treatment Note PT-OP-A Visit Information Start: 10/09/21 12:17 Freq: Status: Active Protocol: Document 12/11/21 09:11 LRN (Rec: 12/11/21 12:17 LRN [id number]) Out-Patient Physical Therapy Visit Information Visit Information Visit Type Treatment Note Visit Start Time 09:11 Visit Stop Time 09:49 Total Visit Minutes 38 Visit Number 11 Evaluation Information Evaluation Date 10/09/21 Precautions Precautions Latex allergy. Trace retrolisthesis L3 on L4 & L4 on L5. 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 Pt has residual back pain from chemo & radiation therapy . Medication controlled depression/anxiety, hypothyroid, arthritis of the knees. PT-OP-B Current Condition Start: 10/09/21 12:17 Freq: Status: Active Protocol: Document 10/09/21 13:35 LRN (Rec: 10/09/21 17:43 LRN [id number]) Current Condition History of Current Condition Onset Date 08/24/21 (end of Jul) Current Complaints Pain in both hips after repetitive activity and long walks. History of Current Condition When walking (2 miles 3 days/ week), both hips start hurting . With sit rest the pain goes away. 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 Had lymphadema therapy in [place] for it (while in college). Prior Treatments and Tests X-ray, pt states it was negative for bursitis. 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 Brain scan was negative for MS . Has done a heart monitor assessment, and treadmill stress test. Appt 11/06/21 with Ambulatory Care Nurse (Dr. Martins from [facility]). 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 PMH: Breast reduction therapy 8yrs ago, Arthritis in knees, Anxiety/Depression controlled by meds, Hypothyroidism. Non-Hodgkins Lymphoma in L groin [id number]. Treatment Goals Patient/Caregiver Goals Pt goal is to manage the pain or get rid of it, do things to help it. 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 Prior Functional Status Baseline Function- ADL's Independent Baseline Function- Mobility Independent Baseline Function- Gait For past 3 yrs walked 2 miles without pain. Baseline Function- Other Wears compression stockings during walk to control onset of numbness in the L foot ( location of Lymphedema and cancer in groin). Current Functional Impairments (Reported) Functional Limitations- ADL's Onset of bilateral hip pain with laundry, cleaning, static standing > 20' Functional Limitations- Mobility/Gait Can walk 3/4 mile on flat ground before bilateral hip pain starts (indicating pain across the low back at the sacral level). Functional Limitations- Recreation/ Pain with gentle yoga Hobbies Functional Limitations- Other Pain with laundry (reaching up /down for clothes), volunteering 2 hours for [employer] ( sweeping and picking up objects). Personal Factors Other Personal Factors That May Effect Has daughter who is Autistic, Therapy/Recovery and is her caregiver, requiring housecleaning and attendance sitting with her. Lives in [place] and has onset of back pain by the time she drives to [employer]. L foot sensation impaired (in area of lymphedema) since tumor wrapped around artery in L groin. Arthritis in knees. PT-OP-C Subjective Start: 10/09/21 12:17 Freq: Status: Active Protocol: Document 12/11/21 09:11 LRN (Rec: 12/11/21 12:17 LRN [id number]) OP-PT Subjective Patient Comments Patient Comments Pain in the back is 2/10. Yoga going well with modifications. Buttock hurts today because of crawling around to fill in holes on the ground. PT-OP-G Mobility & Gait Start: 10/09/21 12:17 Freq: Status: Active Protocol: Document 10/09/21 13:35 LRN (Rec: 10/09/21 17:43 LRN [id number]) OP Gait Assessment Gait Gait Assistance Required: Independent Able to Maintain Weight Bearing Status Yes During Gait Assistive Devices Assistive Device None Comments Gait Comments Pt notes normal gait. PT-OP-H Neuro Start: 10/09/21 12:17 Freq: Status: Active Protocol: Document 10/09/21 13:35 LRN (Rec: 10/09/21 17:43 LRN [id number]) Sensation Evaluation Gross Sensation Gross Sensation WNL Location Details Left Foot Light Touch Impaired Sharp/Dull Intact/Normal Deep Pressure Intact/Normal Hot/Cold Intact/Normal PT-OP-J Posture/Palpation/Skin Start: 10/09/21 12:17 Freq: Status: Active Protocol: Document 10/09/21 13:35 LRN (Rec: 10/09/21 17:43 LRN [id number]) Posture Evaluation Position Standing Evaluation View all positions Head/C-Spine Posture Forward Head T-Spine Posture Increased Kyphosis Shoulder Posture (L) Elevated Pelvis Posture (L) Iliac Crest Superior Ankle/Foot Posture (L) Forefoot Eversion,(R) Forefoot Eversion Comments Posture Comments Varus of lower legs, slight scoliosis towards bottom of spine (apex is left in upper curve, right in lower curve, reversal at T/L junction). Palpation Assessment Location SIJ Palpation Location R side - decreased mobility for PA and inferior glide. Palpation Findings Soft Tissue Tightness, Tenderness PT-OP-K Range of Motion Start: 10/09/21 12:17 Freq: Status: Active Protocol: Document 12/11/21 09:11 LRN (Rec: 12/11/21 12:17 LRN [id number]) Hip Goniometric Range of Motion Hip Right Passive Testing Position Supine Internal Rotation 25 External Rotation 80 Left Passive Testing Position Supine Internal Rotation 35 External Rotation 85 PT-OP-L Special Tests Start: 10/09/21 12:17 Freq: Status: Active Protocol: Document 10/12/21 09:04 LRN (Rec: 10/12/21 09:47 LRN [id number]) Special Tests Hip Special Tests Thigh Thrust Test Test Results - Bilaterally Gaenslen Test Test Results + Right JACKIE Test Results - Bilaterally PT-OP-M Strength Start: 10/09/21 12:17 Freq: Status: Active Protocol: Document 10/09/21 13:35 LRN (Rec: 10/09/21 17:43 LRN [id number]) Trunk Strength Trunk Manual Muscle Testing Testing Position Supine Core Stabilization WNL Hip Strength Hip Manual Muscle Testing Right Flexion (L2) 5 Normal Extension (S1) 5 Normal Abduction 5 Normal Adduction 3- Fair- External Rotation 5 Normal Internal Rotation 4+ Good+ Left Flexion (L2) 5 Normal Extension (S1) 5 Normal Abduction 5 Normal Adduction 5 Normal External Rotation 5 Normal Internal Rotation 5 Normal Knee Strength Knee Manual Muscle Testing Right Flexion (S2) 5 Normal Extension (L3) 5 Normal Left Flexion (S2) 5 Normal Extension (L3) 5 Normal PT-OP-Q Treatments Start: 10/09/21 12:17 Freq: Status: Active Protocol: Document 12/11/21 09:11 LRN (Rec: 12/11/21 12:17 LRN [id number]) Therapeutic Exercises Supine Exercises KTC stretch Supine Exercise Name Gluteal stretch (DKTC) Reps/Minutes 60 x 1 Hands/knee push Supine Exercise Name Hands/knees push Side bilateral Reps/Minutes 10 x 10 Comments Extra time for training/proper positioning TA Heel slides Supine Exercise Name double heel slide- progressed HEP Equipment Used Pt holding neutral spine. Reps/Minutes 10x 2 Comments good TA, painfree. Phys & v cuing to TA thru ex TA/Alternate arm lifts Supine Exercise Name bug Side bilateral Equipment Used Pt holding neutral spine. Reps/Minutes 10x 4 Comments progressed with good slow form , painfree range Lateral Hip stretch Supine Exercise Name lateral ITB and medial Adductor stretch Side bilateral Resistance reviewed HEP Equipment Used w / strap Reps/Minutes 30 x2 Comments PROM taken for ER Piriformis stretch Supine Exercise Name hip IR stretch Side right Reps/Minutes 1 min Comments PROM taken Sidelying Exercises Reverse Clamshell Sidelying Exercise Name Reverse clamshell Side right Reps/Minutes 10x Clamshell Sidelying Exercise Name Clamshell Side bilateral Reps/Minutes 10x Standing Exercises Side stepping Standing Exercise Name Core strengthening - side stepping. COG, Above COG, under & below breasts Side bilateral Equipment Used Lev 2 TB & White strap Reps/Minutes 15 x 1 Comments Extra time to determine max resistance/location of hand placment for pt mehreen Other Exercises Trunk Rot Other Exercise Name Holding stick behind upper back Side bilateral Reps/Minutes 2 H x 10 Comments Tried 2 different sticks to determine best form for ex. Trunk SB Other Exercise Name Hands overhead stretch Side bilateral Reps/Minutes 10 H x 6 Comments Switching side to side Self-Care/Home Management Treatment Education Patient Education Home Exercise Program Activities Self-Care/Home Management Activities Reviewed & issued HEP: Standing Trunk SB & trunk rotation active stretch. I/S pt to FOCUS on R hip for Piriformis stretch. PT-OP-T Assessment and Plan Start: 10/09/21 12:17 Freq: Status: Active Protocol: Document 12/11/21 09:11 LRN (Rec: 12/11/21 12:17 LRN [id number]) Physical Therapy Assessment Goals Three Impairment Decreased function (LEFS score of 50 (20-39% impaired)) Short Term Goal (STG) Improve function with pt able to do laundry (reaching up/ down for clothes) and improve LEFS score of no less than 55. (11/23/21: Progressing: no pain putting in/ out machines but folding and putting it away is still hard to do). 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 11/23/21: has not been able to do yoga due to pain and [employer] is off for couple weeks and unavailable. (12/04/21: Has returned to yoga. Not able to sweep 2 hrs due to pain. Has pain with walking). LTG Duration 01/15/22 (12/04/21: Partially met goal, returned to yoga) Two Impairment Bilateral Hip/Low Back Pain rated 8/10 Short Term Goal (STG) Decrease lynne hip/low back pain to no greater than 4/10. 11/23/21: hip and LBP 6-8/10 and hip are starting to ache. (12/04/21: Hip pain 3/10). STG Duration 11/27/20 (12/04/21: MET GOAL) [place] [employer] Operator Goal (LTG) Pt will be able to manage her lynne hip/LB pain to a tolerable level (or alleviate the pain) with proper posturing and exercises. 11/23/21: states is trying to be more aware of seated posture and improved with self corrections of more errect posture. LTG Duration 01/15/22 (11/23/21 progressing ) One Impairment Lacks appropriate self care HEP Short Term Goal (STG) Pt educated in proper body mechanics and modality use to help decrease pain. STG Duration 10/20/21 (11/06/21: MET GOAL ) Assisted Goal (LTG) Pt will be independent on a self care HEP of low back and hip stretches/strengthening exercises. (10/30/21: Added HEP: Hamstring/LE neural stretch). (11/06/21: Added verbal instructions in thoracic rot - open book ex) (11/11/21: initiated hip ITB & adductor stretch, open book) (12/11/21: Added trunk SB & rot stretch) LTG Duration 01/15/22 (12/11/20: Progressed) Progress Towards Goals Progress Comments Progressed HEP. Assessment Summary Assessment Pt's R hip mobility is decreased 10 deg's for IR & 5 deg's for ER compared to the L hip. Review of Step outs required re-training for hand placement for optimal position for strengthening without R SIJ pain due to low tolerance to SB force. Physical Therapy Plan Frequency and Duration Frequency of Treatment 2x/Week Plan of Care Start Date 10/09/21 Plan of Care End Date 01/15/22 Next Visit Focus/Plan Next Note Type Treatment Note Next Visit Plan NOTE: History of Non-Hodgkins Lymphoma w/residual lymphedema after Bone Marrow Transplant in 10/1995. Review Trunk SB & rot stretching and add Hip IR strengthening (reverse clamshell). Assess results of sleep positioning education. 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 Focus of stretch is on improving R hip IR 5-10 deg's (piriformis) & ER 5 deg's, and LB flex mobility. Review & issue HEP of I/S of TA strengthening program. Monitor sacrum for SB left ( correct by shearing ISABELLE to left), and check for R sacral tight in PA and inferior glide .
--- NOTE | 2021-12-18 09:57 | PT.OTN ---
Current Diagnoses Pain in unspecified hip (12/18/21) Postural kyphosis, thoracic region (12/18/21) Muscle weakness (generalized) (12/18/21) Other abnormalities of gait and mobility (12/18/21) Physical Therapy Treatment Note PT-OP-A Visit Information Start: 10/09/21 12:17 Freq: Status: Active Protocol: Document 12/18/21 09:05 LRN (Rec: 12/18/21 09:56 LRN [id number]) Out-Patient Physical Therapy Visit Information Visit Information Visit Type Treatment Note Visit Note 2 after PN Visit Start Time 09:05 Visit Stop Time 09:45 Total Visit Minutes 40 Visit Number 12 PT-OP-B Current Condition Start: 10/09/21 12:17 Freq: Status: Active Protocol: Document 10/09/21 13:35 LRN (Rec: 10/09/21 17:43 LRN [id number]) Current Condition History of Current Condition Onset Date 08/24/21 (end of Jul) Current Complaints Pain in both hips after repetitive activity and long walks. History of Current Condition When walking (2 miles 3 days/ week), both hips start hurting . With sit rest the pain goes away. 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 Had lymphadema therapy in [place] for it (while in college). Prior Treatments and Tests X-ray, pt states it was negative for bursitis. 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 Brain scan was negative for MS . Has done a heart monitor assessment, and treadmill stress test. Appt 11/06/21 with Geropsychologist (Dr. Martins from [facility]). 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 PMH: Breast reduction therapy 8yrs ago, Arthritis in knees, Anxiety/Depression controlled by meds, Hypothyroidism. Non-Hodgkins Lymphoma in L groin [id number]. Treatment Goals Patient/Caregiver Goals Pt goal is to manage the pain or get rid of it, do things to help it. 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 Prior Functional Status Baseline Function- ADL's Independent Baseline Function- Mobility Independent Baseline Function- Gait For past 3 yrs walked 2 miles without pain. Baseline Function- Other Wears compression stockings during walk to control onset of numbness in the L foot ( location of Lymphedema and cancer in groin). Current Functional Impairments (Reported) Functional Limitations- ADL's Onset of bilateral hip pain with laundry, cleaning, static standing > 20' Functional Limitations- Mobility/Gait Can walk 3/4 mile on flat ground before bilateral hip pain starts (indicating pain across the low back at the sacral level). Functional Limitations- Recreation/ Pain with gentle yoga Hobbies Functional Limitations- Other Pain with laundry (reaching up /down for clothes), volunteering 2 hours for [employer] ( sweeping and picking up objects). Personal Factors Other Personal Factors That May Effect Has daughter who is Autistic, Therapy/Recovery and is her caregiver, requiring housecleaning and attendance sitting with her. Lives in [place] and has onset of back pain by the time she drives to [place]. L foot sensation impaired (in area of lymphedema) since tumor wrapped around artery in L groin. Arthritis in knees. PT-OP-C Subjective Start: 10/09/21 12:17 Freq: Status: Active Protocol: Document 12/18/21 09:05 LRN (Rec: 12/18/21 09:56 LRN [id number]) OP-PT Subjective Patient Comments Patient Comments Overdid, so in a lot of pain. 02/01 today, last week 05/04. After last session did a lot of running around and not able to do the ex's. The more the back hurts the less she does and her cognition goes down, into a bad cycle. Had to sew more. R side is tight. End of treatment pain is 12/04. PT-OP-G Mobility & Gait Start: 10/09/21 12:17 Freq: Status: Active Protocol: Document 10/09/21 13:35 LRN (Rec: 10/09/21 17:43 LRN [id number]) OP Gait Assessment Gait Gait Assistance Required: Independent Able to Maintain Weight Bearing Status Yes During Gait Assistive Devices Assistive Device None Comments Gait Comments Pt notes normal gait. PT-OP-H Neuro Start: 10/09/21 12:17 Freq: Status: Active Protocol: Document 10/09/21 13:35 LRN (Rec: 10/09/21 17:43 LRN [id number]) Sensation Evaluation Gross Sensation Gross Sensation WNL Location Details Left Foot Light Touch Impaired Sharp/Dull Intact/Normal Deep Pressure Intact/Normal Hot/Cold Intact/Normal PT-OP-J Posture/Palpation/Skin Start: 10/09/21 12:17 Freq: Status: Active Protocol: Document 10/09/21 13:35 LRN (Rec: 10/09/21 17:43 LRN [id number]) Posture Evaluation Position Standing Evaluation View all positions Head/C-Spine Posture Forward Head T-Spine Posture Increased Kyphosis Shoulder Posture (L) Elevated Pelvis Posture (L) Iliac Crest Superior Ankle/Foot Posture (L) Forefoot Eversion,(R) Forefoot Eversion Comments Posture Comments Varus of lower legs, slight scoliosis towards bottom of spine (apex is left in upper curve, right in lower curve, reversal at T/L junction). Palpation Assessment Location SIJ Palpation Location R side - decreased mobility for PA and inferior glide. Palpation Findings Soft Tissue Tightness, Tenderness PT-OP-K Range of Motion Start: 10/09/21 12:17 Freq: Status: Active Protocol: Document 12/11/21 09:11 LRN (Rec: 12/11/21 12:17 LRN [id number]) Hip Goniometric Range of Motion Hip Right Passive Testing Position Supine Internal Rotation 25 External Rotation 80 Left Passive Testing Position Supine Internal Rotation 35 External Rotation 85 PT-OP-L Special Tests Start: 10/09/21 12:17 Freq: Status: Active Protocol: Document 10/12/21 09:04 LRN (Rec: 10/12/21 09:47 LRN [id number]) Special Tests Hip Special Tests Thigh Thrust Test Test Results - Bilaterally Gaenslen Test Test Results + Right JACKIE Test Results - Bilaterally PT-OP-M Strength Start: 10/09/21 12:17 Freq: Status: Active Protocol: Document 10/09/21 13:35 LRN (Rec: 10/09/21 17:43 LRN [id number]) Trunk Strength Trunk Manual Muscle Testing Testing Position Supine Core Stabilization WNL Hip Strength Hip Manual Muscle Testing Right Flexion (L2) 5 Normal Extension (S1) 5 Normal Abduction 5 Normal Adduction 3- Fair- External Rotation 5 Normal Internal Rotation 4+ Good+ Left Flexion (L2) 5 Normal Extension (S1) 5 Normal Abduction 5 Normal Adduction 5 Normal External Rotation 5 Normal Internal Rotation 5 Normal Knee Strength Knee Manual Muscle Testing Right Flexion (S2) 5 Normal Extension (L3) 5 Normal Left Flexion (S2) 5 Normal Extension (L3) 5 Normal PT-OP-Q Treatments Start: 10/09/21 12:17 Freq: Status: Active Protocol: Document 12/18/21 09:05 LRN (Rec: 12/18/21 09:56 LRN [id number]) Therapeutic Exercises Supine Exercises Towel roll trunk ext stretch Supine Exercise Name Rolled towel along spine Reps/Minutes 2' Comments Extra time taken for proper positioning and finding max tolerated stretch KTC stretch Supine Exercise Name Gluteal stretch (DKTC) Reps/Minutes 60 x 2 Hands/knee push Supine Exercise Name Hands/knees pusch Side bilateral Reps/Minutes 3' Fig 4 stretch Supine Exercise Name Fig 4 stretch Side right Reps/Minutes 2' Comments phys & v cuing Lateral Hip stretch Supine Exercise Name lateral ITB and medial Adductor stretch Side bilateral Resistance reviewed HEP Equipment Used w / strap Reps/Minutes 30 x2 Comments PROM taken for ER Piriformis stretch Supine Exercise Name hip IR stretch Side right Reps/Minutes 2 min Comments PROM taken Sidelying Exercises Reverse Clamshell Sidelying Exercise Name Reverse clamshell Side right Reps/Minutes 10x 2 Comments Extra time taken for proper positioning. Clamshell Sidelying Exercise Name Clamshell Side bilateral Reps/Minutes 10x 2 Sitting Exercises Trunk Rot stretch Sitting Exercise Name Trunk Rot Stretch Side bilateral Reps/Minutes 10x each Comments V cuing for hand placement to assist with rot Trunk SB stretch Sitting Exercise Name Trunk SB stretch Side bilateral Reps/Minutes 10x each Comments V cuing to limit SB to L because of overstretch in R side. Standing Exercises Trunk Rot Standing Exercise Name Active trunk rot stretch Side bilateral Reps/Minutes 3' Other Exercises Child's pose Other Exercise Name Child's Pose Reps/Minutes 3' Trunk Rot Other Exercise Name 4pt: Thread the needle Reps/Minutes 3' Trunk SB Other Exercise Name Wag the tail Side bilateral Reps/Minutes 4' Comments Extra time taken for max tolerated movement. Self-Care/Home Management Treatment Education Patient Education Posture Other Education Educated pt in sidelie/ nighttime positioning for neutral position and discussed /recommended ways to prevent posturing. PT-OP-T Assessment and Plan Start: 10/09/21 12:17 Freq: Status: Active Protocol: Document 12/18/21 09:05 LRN (Rec: 12/18/21 09:56 LRN [id number]) Physical Therapy Assessment Goals Three Impairment Decreased function (LEFS score of 50 (20-39% impaired)) Short Term Goal (STG) Improve function with pt able to do laundry (reaching up/ down for clothes) and improve LEFS score of no less than 55. (11/23/21: Progressing: no pain putting in/ out machines but folding and putting it away is still hard to do). 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 11/23/21: has not been able to do yoga due to pain and [employer] is off for couple weeks and unavailable. (12/04/21: Has returned to yoga. Not able to sweep 2 hrs due to pain. Has pain with walking). LTG Duration 01/15/22 (12/04/21: Partially met goal, returned to yoga) Two Impairment Bilateral Hip/Low Back Pain rated 8/10 Short Term Goal (STG) Decrease lynne hip/low back pain to no greater than 4/10. (11/23/21: hip and LBP 6-8/10 and hip are starting to ache) (12/04/21: Hip pain 3/10). (12/18/21: After working, R LBP 6/10) STG Duration 11/27/20 (12/04/21: MET GOAL) [employer] Goal (LTG) Pt will be able to manage her lynne hip/LB pain to a tolerable level (or alleviate the pain) with proper posturing and exercises. 11/23/21: states is trying to be more aware of seated posture and improved with self corrections of more errect posture. LTG Duration 01/15/22 (11/23/21 progressing ) One Impairment Lacks appropriate self care HEP Short Term Goal (STG) Pt educated in proper body mechanics and modality use to help decrease pain. STG Duration 10/20/21 (11/06/21: MET GOAL ) [employer] Goal (LTG) Pt will be independent on a self care HEP of low back and hip stretches/strengthening exercises. (10/30/21: Added HEP: Hamstring/LE neural stretch). (11/06/21: Added verbal instructions in thoracic rot - open book ex) (11/11/21: initiated hip ITB & adductor stretch, open book) (12/11/21: Added trunk SB & rot stretch) LTG Duration 01/15/22 (12/11/20: Progressed) Progress Towards Goals Progress Comments Progressed ex program, modifying stand trunk SB to sitting and standing rot to adding arm reaching. Assessment Summary Assessment Pt needs slowing speed on stretches. Pt needed much phys & v cuing to get in good nighttime. Pt not able to control standing trunk SB stretch; therefore modified to sitting. Pt able to manage her pain, but she conts to have increased pain after her working at [employer]. Physical Therapy Plan Frequency and Duration Frequency of Treatment 2x/Week Plan of Care Start Date 10/09/21 Plan of Care End Date 01/15/22 Next Visit Focus/Plan Next Note Type Treatment Note Next Visit Plan NOTE: History of Non-Hodgkins Lymphoma w/residual lymphedema after Bone Marrow Transplant in 10/1995. Assess results of sleep positioning change. 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 Focus of stretch improving R hip IR 5-10 deg's (piriformis) & ER 5 deg's, and LB flex mobility. Review & issue HEP of I/S of TA strengthening program. Monitor sacrum for SB left ( correct by shearing ISABELLE to left), and check for R sacral tight in PA and inferior glide .
--- NOTE | 2021-12-25 11:02 | PT.OTN ---
Current Diagnoses Pain in unspecified hip (12/25/21) Postural kyphosis, thoracic region (12/25/21) Muscle weakness (generalized) (12/25/21) Other abnormalities of gait and mobility (12/25/21) Physical Therapy Treatment Note PT-OP-A Visit Information Start: 10/09/21 12:17 Freq: Status: Active Protocol: Document 12/25/21 09:08 LRN (Rec: 12/25/21 11:00 LRN [id number]) Out-Patient Physical Therapy Visit Information Visit Information Visit Type Treatment Note Visit Start Time 09:08 Visit Stop Time 10:12 Total Visit Minutes 64 Visit Number 13 Evaluation Information Evaluation Date 10/09/21 Precautions Precautions Latex allergy. Trace retrolisthesis L3 on L4 & L4 on L5. 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 Pt has residual back pain from chemo & radiation therapy . Medication controlled depression/anxiety, hypothyroid, arthritis of the knees. PT-OP-B Current Condition Start: 10/09/21 12:17 Freq: Status: Active Protocol: Document 10/09/21 13:35 LRN (Rec: 10/09/21 17:43 LRN [id number]) Current Condition History of Current Condition Onset Date 08/24/21 (end of Jul) Current Complaints Pain in both hips after repetitive activity and long walks. History of Current Condition When walking (2 miles 3 days/ week), both hips start hurting . With sit rest the pain goes away. 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 Had lymphadema therapy in [place] for it (while in college). Prior Treatments and Tests X-ray, pt states it was negative for bursitis. Future Testing and Treatments Planned None Developmental History Developmental History Going to reconstructive dentist. 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 Brain scan was negative for MS . Has done a heart monitor assessment, and treadmill stress test. Appt 11/06/21 with Accreditation Specialist (Dr. Martins from [facility]). 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 PMH: Breast reduction therapy 8yrs ago, Arthritis in knees, Anxiety/Depression controlled by meds, Hypothyroidism. Non-Hodgkins Lymphoma in L groin [id number]. Treatment Goals Patient/Caregiver Goals Pt goal is to manage the pain or get rid of it, do things to help it. 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 Prior Functional Status Baseline Function- ADL's Independent Baseline Function- Mobility Independent Baseline Function- Gait For past 3 yrs walked 2 miles without pain. Baseline Function- Other Wears compression stockings during walk to control onset of numbness in the L foot ( location of Lymphedema and cancer in groin). Current Functional Impairments (Reported) Functional Limitations- ADL's Onset of bilateral hip pain with laundry, cleaning, static standing > 20' Functional Limitations- Mobility/Gait Can walk 3/4 mile on flat ground before bilateral hip pain starts (indicating pain across the low back at the sacral level). Functional Limitations- Recreation/ Pain with gentle yoga Hobbies Functional Limitations- Other Pain with laundry (reaching up /down for clothes), volunteering 2 hours for [employer] ( sweeping and picking up objects). Personal Factors Other Personal Factors That May Effect Has daughter who is Autistic, Therapy/Recovery and is her caregiver, requiring housecleaning and attendance sitting with her. Lives in [place] and has onset of back pain by the time she drives to [email or web address]. L foot sensation impaired (in area of lymphedema) since tumor wrapped around artery in L groin. Arthritis in knees. PT-OP-C Subjective Start: 10/09/21 12:17 Freq: Status: Active Protocol: Document 12/25/21 09:08 LRN (Rec: 12/25/21 11:00 LRN [id number]) OP-PT Subjective Patient Comments Patient Comments States she is feeling fine, but pain comes back when walking. PT-OP-G Mobility & Gait Start: 10/09/21 12:17 Freq: Status: Active Protocol: Document 10/09/21 13:35 LRN (Rec: 10/09/21 17:43 LRN [id number]) OP Gait Assessment Gait Gait Assistance Required: Independent Able to Maintain Weight Bearing Status Yes During Gait Assistive Devices Assistive Device None Comments Gait Comments Pt notes normal gait. PT-OP-H Neuro Start: 10/09/21 12:17 Freq: Status: Active Protocol: Document 10/09/21 13:35 LRN (Rec: 10/09/21 17:43 LRN [id number]) Sensation Evaluation Gross Sensation Gross Sensation WNL Location Details Left Foot Light Touch Impaired Sharp/Dull Intact/Normal Deep Pressure Intact/Normal Hot/Cold Intact/Normal PT-OP-J Posture/Palpation/Skin Start: 10/09/21 12:17 Freq: Status: Active Protocol: Document 10/09/21 13:35 LRN (Rec: 10/09/21 17:43 LRN [id number]) Posture Evaluation Position Standing Evaluation View all positions Head/C-Spine Posture Forward Head T-Spine Posture Increased Kyphosis Shoulder Posture (L) Elevated Pelvis Posture (L) Iliac Crest Superior Ankle/Foot Posture (L) Forefoot Eversion,(R) Forefoot Eversion Comments Posture Comments Varus of lower legs, slight scoliosis towards bottom of spine (apex is left in upper curve, right in lower curve, reversal at T/L junction). Palpation Assessment Location SIJ Palpation Location R side - decreased mobility for PA and inferior glide. Palpation Findings Soft Tissue Tightness, Tenderness PT-OP-K Range of Motion Start: 10/09/21 12:17 Freq: Status: Active Protocol: Document 12/11/21 09:11 LRN (Rec: 12/11/21 12:17 LRN [id number]) Hip Goniometric Range of Motion Hip Right Passive Testing Position Supine Internal Rotation 25 External Rotation 80 Left Passive Testing Position Supine Internal Rotation 35 External Rotation 85 PT-OP-L Special Tests Start: 10/09/21 12:17 Freq: Status: Active Protocol: Document 10/12/21 09:04 LRN (Rec: 10/12/21 09:47 LRN [id number]) Special Tests Hip Special Tests Thigh Thrust Test Test Results - Bilaterally Gaenslen Test Test Results + Right JACKIE Test Results - Bilaterally PT-OP-M Strength Start: 10/09/21 12:17 Freq: Status: Active Protocol: Document 10/09/21 13:35 LRN (Rec: 10/09/21 17:43 LRN [id number]) Trunk Strength Trunk Manual Muscle Testing Testing Position Supine Core Stabilization WNL Hip Strength Hip Manual Muscle Testing Right Flexion (L2) 5 Normal Extension (S1) 5 Normal Abduction 5 Normal Adduction 3- Fair- External Rotation 5 Normal Internal Rotation 4+ Good+ Left Flexion (L2) 5 Normal Extension (S1) 5 Normal Abduction 5 Normal Adduction 5 Normal External Rotation 5 Normal Internal Rotation 5 Normal Knee Strength Knee Manual Muscle Testing Right Flexion (S2) 5 Normal Extension (L3) 5 Normal Left Flexion (S2) 5 Normal Extension (L3) 5 Normal PT-OP-Q Treatments Start: 10/09/21 12:17 Freq: Status: Active Protocol: Document 12/25/21 09:08 LRN (Rec: 12/25/21 11:00 LRN [id number]) Cardio Equipment Treadmill Duration (Minutes) 6 Speed 1.4 Incline 0 Other Stopped x 2 for hip/LB stretches. See gait section for other specifics Therapeutic Exercises Supine Exercises Trunk rot Supine Exercise Name Trunk rot stretch Side bilateral Reps/Minutes 3' Lateral Hip stretch Supine Exercise Name lateral ITB and medial Adductor stretch Side bilateral Resistance reviewed HEP Reps/Minutes 1' hold each Piriformis stretch Supine Exercise Name hip IR stretch Side right Reps/Minutes 2' Sidelying Exercises Reverse Clamshell Sidelying Exercise Name Reverse clamshell Side right Reps/Minutes 15x 2 each Clamshell Sidelying Exercise Name Clamshell Side bilateral Reps/Minutes 15x 2 each Standing Exercises Hip distraction Standing Exercise Name Primarily R hip distraction whenever pain onset in R hip/ LB Side right Equipment Used Walking stick for balance Reps/Minutes Multiple times throughout therapy Comments Swinging leg AB/AD & Flex/Ext Hip IR stretch Standing Exercise Name Cross over with leg in IR, f/b fwdbend to stretch Side bilateral Reps/Minutes 2' x 2 Comments Depedent and closed chain rot/ pivoting stretch Hamstring stretch Standing Exercise Name Hamstring stretch Side bilateral Reps/Minutes 2' x 2 Trunk Rot Standing Exercise Name Active trunk rot stretch Side bilateral Reps/Minutes 3' Thoracic Extension Standing Exercise Name Thoracic Ext Side bilateral Reps/Minutes 2' Gait Training Gait Activity Gait with use of walking stick Description Walking with walking stick on Left & R hand Device Used Walking stick Surface Level Distance/Duration 12' Gait on TM Description Posture training on TM Device Used TM hand railing Treatment Focus Posture of Low back and head/ neck Comments Cuing needed throughout for proper head/neck posturing and low back/core stab Manual Therapy Treatment Manual Traction R hip Details Intermittent tx: Open pack position, belt around thigh Body Position Supine Reps/Duration 3' Comments Relief of hip pain to level of 10 (starting at 03/04). Lumbar Details General lumbar intermittent traction w/belt Body Position Hooklying Reps/Duration 3' Comments Relief of LB tension but no R hip pain relief. Self-Care/Home Management Treatment Education Patient Education Home Exercise Program,Posture Other Education Educated/discussed at length: modifications of her walking program with her dog and friends (including but not limited to side of holding dog , location of anchor for leash to body, inclines vs flat, stopping for stretching at R hip and low back, suggestions for use of walking sticks and precautions based on which side she is choosing to use the walking stick on). Activities Self-Care/Home Management Activities Reviewed & issued HEP: Supine trunk rot stretch, Thread the needle for thoracic stretch and hip strengthening of ER/IR (clamshell/reverse clamshell) . PT-OP-T Assessment and Plan Start: 10/09/21 12:17 Freq: Status: Active Protocol: Document 12/25/21 09:08 LRN (Rec: 12/25/21 11:00 LRN [id number]) Physical Therapy Assessment Goals Three Impairment Decreased function (LEFS score of 50 (20-39% impaired)) Short Term Goal (STG) Improve function with pt able to do laundry (reaching up/ down for clothes) and improve LEFS score of no less than 55. (11/23/21: Progressing: no pain putting in/ out machines but folding and putting it away is still hard to do). 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 11/23/21: has not been able to do yoga due to pain and [employer] is off for couple weeks and unavailable. (12/04/21: Has returned to yoga. Not able to sweep 2 hrs due to pain. Has pain with walking). LTG Duration 01/15/22 (12/04/21: Partially met goal, returned to yoga) Two Impairment Bilateral Hip/Low Back Pain rated 8/10 Short Term Goal (STG) Decrease lynne hip/low back pain to no greater than 4/10. (11/23/21: hip and LBP 6-8/10 and hip are starting to ache) (12/04/21: Hip pain 3/10). (12/18/21: After working, R LBP 6/10) STG Duration 11/27/20 (12/04/21: MET GOAL) Group Home Goal (LTG) Pt will be able to manage her lynne hip/LB pain to a tolerable level (or alleviate the pain) with proper posturing and exercises. 11/23/21: states is trying to be more aware of seated posture and improved with self corrections of more errect posture. LTG Duration 01/15/22 (11/23/21 progressing ) One Impairment Lacks appropriate self care HEP Short Term Goal (STG) Pt educated in proper body mechanics and modality use to help decrease pain. STG Duration 10/20/21 (11/06/21: MET GOAL ) Swine Extension Field Specialist Goal (LTG) Pt will be independent on a self care HEP of low back and hip stretches/strengthening exercises. (10/30/21: Added HEP: Hamstring/LE neural stretch). (11/06/21: Added verbal instructions in thoracic rot - open book ex) (11/11/21: initiated hip ITB & adductor stretch, open book) (12/11/21: Added trunk SB & rot stretch) (12/25/21: HEP: ER/IR hip strengthening & sup trunk rot and thread the needle thoracic rot stretch). LTG Duration 01/15/22 (12/25/21: Progressed) Progress Towards Goals Progress Comments Progressed HEP to complete low level hip strengthening and trunk rot stretches. Assessment Summary Assessment After 2.3 and 3.3 minutes on TM pt had onset of R hip & LBP as well as thoracic pain. Thoracic pain due to poor posturing. R hip/LBP may be due to posture, Tight hip ms and/or lumbar radiculopathy. Physical Therapy Plan Frequency and Duration Frequency of Treatment 2x/Week Plan of Care Start Date 10/09/21 Plan of Care End Date 01/15/22 Next Visit Focus/Plan Next Note Type Treatment Note Next Visit Plan NOTE: History of Non-Hodgkins Lymphoma w/residual lymphedema after Bone Marrow Transplant in 10/1995. Assess response to changes with walking program & pain after [employer] activities. 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 Try self sacral mob & pelvic mobs (determine pelvic mob needed) to minimize R hip pain with gait. Progress core strengthening and maximize R hip pain reduction via stretching (R hip and trunk flex) for greater walking tolerance. Focus of stretch improving R hip IR 5-10 deg's (piriformis) & ER 5 deg's, and LB flexion mobility. Complete HEP of TA strengthening program. Monitor sacrum for SB left ( correct by shearing ISABELLE to left), and check for R sacral tight in PA and inferior glide .
--- NOTE | 2022-01-02 17:22 | PT.OTN ---
Current Diagnoses Pain in unspecified hip (01/02/22) Postural kyphosis, thoracic region (01/02/22) Muscle weakness (generalized) (01/02/22) Other abnormalities of gait and mobility (01/02/22) Physical Therapy Treatment Note PT-OP-A Visit Information Start: 10/09/21 12:17 Freq: Status: Active Protocol: Document 01/02/22 09:55 LRN (Rec: 01/02/22 10:35 LRN [id number]) Out-Patient Physical Therapy Visit Information Visit Information Visit Type Treatment Note Visit Start Time 09:55 Visit Stop Time 10:33 Total Visit Minutes 38 Visit Number 14 Evaluation Information Evaluation Date 10/09/21 Precautions Precautions Latex allergy. Trace retrolisthesis L3 on L4 & L4 on L5. 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 Pt has residual back pain from chemo & radiation therapy . Medication controlled depression/anxiety, hypothyroid, arthritis of the knees. PT-OP-B Current Condition Start: 10/09/21 12:17 Freq: Status: Active Protocol: Document 10/09/21 13:35 LRN (Rec: 10/09/21 17:43 LRN [id number]) Current Condition History of Current Condition Onset Date 08/24/21 (end of Jul) Current Complaints Pain in both hips after repetitive activity and long walks. History of Current Condition When walking (2 miles 3 days/ week), both hips start hurting . With sit rest the pain goes away. 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 Had lymphadema therapy in [place] for it (while in college). Prior Treatments and Tests X-ray, pt states it was negative for bursitis. 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 Brain scan was negative for MS . Has done a heart monitor assessment, and treadmill stress test. Appt 11/06/21 with [employer] (Dr. Martins from [facility]). 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 PMH: Breast reduction therapy 8yrs ago, Arthritis in knees, Anxiety/Depression controlled by meds, Hypothyroidism. Non-Hodgkins Lymphoma in L groin [id number]. Treatment Goals Patient/Caregiver Goals Pt goal is to manage the pain or get rid of it, do things to help it. 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 Prior Functional Status Baseline Function- ADL's Independent Baseline Function- Mobility Independent Baseline Function- Gait For past 3 yrs walked 2 miles without pain. Baseline Function- Other Wears compression stockings during walk to control onset of numbness in the L foot ( location of Lymphedema and cancer in groin). Current Functional Impairments (Reported) Functional Limitations- ADL's Onset of bilateral hip pain with laundry, cleaning, static standing > 20' Functional Limitations- Mobility/Gait Can walk 3/4 mile on flat ground before bilateral hip pain starts (indicating pain across the low back at the sacral level). Functional Limitations- Recreation/ Pain with gentle yoga Hobbies Functional Limitations- Other Pain with laundry (reaching up /down for clothes), volunteering 2 hours for [employer] ( sweeping and picking up objects). Personal Factors Other Personal Factors That May Effect Has daughter who is Autistic, Therapy/Recovery and is her caregiver, requiring housecleaning and attendance sitting with her. Lives in [place] and has onset of back pain by the time she drives to [employer]. L foot sensation impaired (in area of lymphedema) since tumor wrapped around artery in L groin. Arthritis in knees. PT-OP-C Subjective Start: 10/09/21 12:17 Freq: Status: Active Protocol: Document 01/02/22 09:55 LRN (Rec: 01/02/22 10:35 LRN [id number]) OP-PT Subjective Patient Comments Patient Comments Pain level of the back is between 2-3/10. Walking sticks helped by hips not hurting as much after the walk and switched hands 1/[address] through. Pain was tolerable. Didn't have to go home and collapse, was able to go home and sit to rest, then do what she had to do. 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 PT-OP-G Mobility & Gait Start: 10/09/21 12:17 Freq: Status: Active Protocol: Document 10/09/21 13:35 LRN (Rec: 10/09/21 17:43 LRN [id number]) OP Gait Assessment Gait Gait Assistance Required: Independent Able to Maintain Weight Bearing Status Yes During Gait Assistive Devices Assistive Device None Comments Gait Comments Pt notes normal gait. PT-OP-H Neuro Start: 10/09/21 12:17 Freq: Status: Active Protocol: Document 10/09/21 13:35 LRN (Rec: 10/09/21 17:43 LRN [id number]) Sensation Evaluation Gross Sensation Gross Sensation WNL Location Details Left Foot Light Touch Impaired Sharp/Dull Intact/Normal Deep Pressure Intact/Normal Hot/Cold Intact/Normal PT-OP-J Posture/Palpation/Skin Start: 10/09/21 12:17 Freq: Status: Active Protocol: Document 10/09/21 13:35 LRN (Rec: 10/09/21 17:43 LRN [id number]) Posture Evaluation Position Standing Evaluation View all positions Head/C-Spine Posture Forward Head T-Spine Posture Increased Kyphosis Shoulder Posture (L) Elevated Pelvis Posture (L) Iliac Crest Superior Ankle/Foot Posture (L) Forefoot Eversion,(R) Forefoot Eversion Comments Posture Comments Varus of lower legs, slight scoliosis towards bottom of spine (apex is left in upper curve, right in lower curve, reversal at T/L junction). Palpation Assessment Location SIJ Palpation Location R side - decreased mobility for PA and inferior glide. Palpation Findings Soft Tissue Tightness, Tenderness PT-OP-K Range of Motion Start: 10/09/21 12:17 Freq: Status: Active Protocol: Document 12/11/21 09:11 LRN (Rec: 12/11/21 12:17 LRN [id number]) Hip Goniometric Range of Motion Hip Right Passive Testing Position Supine Internal Rotation 25 External Rotation 80 Left Passive Testing Position Supine Internal Rotation 35 External Rotation 85 PT-OP-L Special Tests Start: 10/09/21 12:17 Freq: Status: Active Protocol: Document 10/12/21 09:04 LRN (Rec: 10/12/21 09:47 LRN [id number]) Special Tests Hip Special Tests Thigh Thrust Test Test Results - Bilaterally Gaenslen Test Test Results + Right JACKIE Test Results - Bilaterally PT-OP-M Strength Start: 10/09/21 12:17 Freq: Status: Active Protocol: Document 10/09/21 13:35 LRN (Rec: 10/09/21 17:43 LRN [id number]) Trunk Strength Trunk Manual Muscle Testing Testing Position Supine Core Stabilization WNL Hip Strength Hip Manual Muscle Testing Right Flexion (L2) 5 Normal Extension (S1) 5 Normal Abduction 5 Normal Adduction 3- Fair- External Rotation 5 Normal Internal Rotation 4+ Good+ Left Flexion (L2) 5 Normal Extension (S1) 5 Normal Abduction 5 Normal Adduction 5 Normal External Rotation 5 Normal Internal Rotation 5 Normal Knee Strength Knee Manual Muscle Testing Right Flexion (S2) 5 Normal Extension (L3) 5 Normal Left Flexion (S2) 5 Normal Extension (L3) 5 Normal PT-OP-Q Treatments Start: 10/09/21 12:17 Freq: Status: Active Protocol: Document 01/02/22 09:55 LRN (Rec: 01/02/22 10:35 LRN [id number]) Therapeutic Exercises Supine Exercises TA leg lifts Supine Exercise Name TA/knees flexed > straighten knee > lower leg > heel slide up Side bilateral Reps/Minutes 7x each side Comments Extra time to train for core stability Hands/knee push Supine Exercise Name Knees 90/90, pushing with one hand into ball on knees Side bilateral Equipment Used Bolster, ball. Reps/Minutes 5 H x 5, 2 sets Comments Extra time to train for core stability during ex TA Heel slides Supine Exercise Name TA/Heel slides Side bilateral Equipment Used 1# ea ankle Reps/Minutes 10x, 6x Comments Extra time to train for core stability Lateral Hip stretch Supine Exercise Name lateral ITB and medial Adductor stretch Side bilateral Resistance reviewed HEP Reps/Minutes 1' hold each Piriformis stretch Supine Exercise Name hip IR stretch Side right Reps/Minutes 2' Sidelying Exercises Reverse Clamshell Sidelying Exercise Name Reverse clamshell Side right Reps/Minutes 15x 2 each Clamshell Sidelying Exercise Name Clamshell Side bilateral Reps/Minutes 15x 2 each Standing Exercises Trunk flex stretch Standing Exercise Name Forward bend for trunk flex stretch Reps/Minutes 10 H x 6 Trunk SB stretch Standing Exercise Name Trunk SB stretch Side bilateral Reps/Minutes 10 H x 5 Comments R side is tighter. Hip distraction Standing Exercise Name Primarily R hip distraction whenever pain onset in R hip/ LB Side right Comments Swinging leg AB/AD & Flex/Ext Hamstring stretch Standing Exercise Name Hamstring stretch Side bilateral Reps/Minutes 2' x 2 Trunk Rot Standing Exercise Name Active trunk rot stretch Side bilateral Reps/Minutes 3' PT-OP-T Assessment and Plan Start: 10/09/21 12:17 Freq: Status: Active Protocol: Document 01/02/22 09:55 LRN (Rec: 01/02/22 10:35 LRN [id number]) Physical Therapy Assessment Goals Three Impairment Decreased function (LEFS score of 50 (20-39% impaired)) Short Term Goal (STG) Improve function with pt able to do laundry (reaching up/ down for clothes) and improve LEFS score of no less than 55. (11/23/21: Progressing: no pain putting in/ out machines but folding and putting it away is still hard to do). (12/04/21: LEFS score of 40) (01/02/22: Hip pain putting clothes away because of repetitive reaching down to get clothes, back pain starts, exacerbating pain rated 3/10) . 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 11/23/21: has not been able to do yoga due to pain and [employer] is off for couple weeks and unavailable. (12/04/21: Has returned to yoga. Not able to sweep 2 hrs due to pain. Has pain with walking). (01/02/22: 2 hrs after [employer] work her pain is 6/10). LTG Duration 01/15/22 (12/04/21: Partially met goal, returned to yoga) Two Impairment Bilateral Hip/Low Back Pain rated 8/10 Short Term Goal (STG) Decrease lynne hip/low back pain to no greater than 4/10. (11/23/21: hip and LBP 6-8/10 and hip are starting to ache) (12/04/21: Hip pain 3/10). (12/18/21: After working, R LBP 6/10) STG Duration 11/27/20 (12/04/21: MET GOAL) Oyster Harvester Goal (LTG) Pt will be able to manage her lynne hip/LB pain to a tolerable level (or alleviate the pain) with proper posturing and exercises. 11/23/21: states is trying to be more aware of seated posture and improved with self corrections of more errect posture. (01/02/22: When active pain is the same as before, at rest pain is less). LTG Duration 01/15/22 (01/02/22: MET GOAL) One Impairment Lacks appropriate self care HEP Short Term Goal (STG) Pt educated in proper body mechanics and modality use to help decrease pain. STG Duration 10/20/21 (11/06/21: MET GOAL ) Halfway Goal (LTG) Pt will be independent on a self care HEP of low back and hip stretches/strengthening exercises. (10/30/21: Added HEP: Hamstring/LE neural stretch). (11/06/21: Added verbal instructions in thoracic rot - open book ex) (11/11/21: initiated hip ITB & adductor stretch, open book) (12/11/21: Added trunk SB & rot stretch) (12/25/21: HEP: ER/IR hip strengthening & sup trunk rot and thread the needle thoracic rot stretch). LTG Duration 01/15/22 (12/25/21: Progressed) Assessment Summary Assessment Pt is having back & bilateral hip pain after 2 hrs of working with [email or web address], probably due to prolonged trunk flex posturing or excessive trunk ext during work or activities (rating her pain 6/10). Pt will need to modify the time she is doing the activities to help her manage the pain. She is able to manage her pain better with use of hip/LB stretches and is taking less time to recover after the activity. Her R lateral trunk is tighter than the L with SB stretch. Pt has been able to improve her tolerance to walking with use of walking sticks. Due to pt's insurance limits she is choosing to make her next appt her final visit; therefore will need to complete a progressive core/ pelvic stab program prior to DC. Physical Therapy Plan Frequency and Duration Frequency of Treatment 2x/Week Plan of Care Start Date 10/09/21 Plan of Care End Date 01/15/22 Next Visit Focus/Plan Next Note Type Discharge Summary Next Visit Plan Complete HEP of TA /core/ pelvic strengthening and SIJ stabilization. Try self sacral mob & pelvic mobs (determine pelvic mob needed) to minimize R hip pain with gait. Assess trunk and hip mobility (for improved R hip IR 5-10 deg's (piriformis) & ER 5 deg' s, and LB flexion mobility). Check sacrum for SB left ( correct by shearing ISABELLE to left), and check for R sacral tight in PA and inferior glide . NOTE: History of Non-Hodgkins Lymphoma w/residual lymphedema after Bone Marrow Transplant in 10/1995.
--- NOTE | 2022-01-08 12:13 | PT.OTN ---
Current Diagnoses Pain in unspecified hip (01/08/22) Postural kyphosis, thoracic region (01/08/22) Muscle weakness (generalized) (01/08/22) Other abnormalities of gait and mobility (01/08/22) Physical Therapy Treatment Note PT-OP-A Visit Information Start: 10/09/21 12:17 Freq: Status: Active Protocol: Document 01/08/22 11:18 LRN (Rec: 01/08/22 12:13 LRN [id number]) Out-Patient Physical Therapy Visit Information Visit Information Visit Type Treatment Note Visit Start Time 11:18 Visit Stop Time 12:00 Total Visit Minutes 42 Visit Number 15 Evaluation Information Evaluation Date 10/09/21 Precautions Precautions Latex allergy. Trace retrolisthesis L3 on L4 & L4 on L5. 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 Pt has residual back pain from chemo & radiation therapy . Medication controlled depression/anxiety, hypothyroid, arthritis of the knees. PT-OP-B Current Condition Start: 10/09/21 12:17 Freq: Status: Active Protocol: Document 10/09/21 13:35 LRN (Rec: 10/09/21 17:43 LRN [id number]) Current Condition History of Current Condition Onset Date 08/24/21 (end of Jul) Current Complaints Pain in both hips after repetitive activity and long walks. History of Current Condition When walking (2 miles 3 days/ week), both hips start hurting . With sit rest the pain goes away. 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 Had lymphadema therapy in [place] for it (while in college). Prior Treatments and Tests X-ray, pt states it was negative for bursitis. 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 Brain scan was negative for MS . Has done a heart monitor assessment, and treadmill stress test. Appt 11/06/21 with [employer] (Dr. Martins from [facility]). 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 PMH: Breast reduction therapy 8yrs ago, Arthritis in knees, Anxiety/Depression controlled by meds, Hypothyroidism. Non-Hodgkins Lymphoma in L groin [id number]. Treatment Goals Patient/Caregiver Goals Pt goal is to manage the pain or get rid of it, do things to help it. 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 Prior Functional Status Baseline Function- ADL's Independent Baseline Function- Mobility Independent Baseline Function- Gait For past 3 yrs walked 2 miles without pain. Baseline Function- Other Wears compression stockings during walk to control onset of numbness in the L foot ( location of Lymphedema and cancer in groin). Current Functional Impairments (Reported) Functional Limitations- ADL's Onset of bilateral hip pain with laundry, cleaning, static standing > 20' Functional Limitations- Mobility/Gait Can walk 3/4 mile on flat ground before bilateral hip pain starts (indicating pain across the low back at the sacral level). Functional Limitations- Recreation/ Pain with gentle yoga Hobbies Functional Limitations- Other Pain with laundry (reaching up /down for clothes), volunteering 2 hours for [employer] ( sweeping and picking up objects). Personal Factors Other Personal Factors That May Effect Has daughter who is Autistic, Therapy/Recovery and is her caregiver, requiring housecleaning and attendance sitting with her. Lives in [place] and has onset of back pain by the time she drives to [employer]. L foot sensation impaired (in area of lymphedema) since tumor wrapped around artery in L groin. Arthritis in knees. PT-OP-C Subjective Start: 10/09/21 12:17 Freq: Status: Active Protocol: Document 01/08/22 11:18 LRN (Rec: 01/08/22 12:13 LRN [id number]) OP-PT Subjective Patient Comments Patient Comments Back hurts but R hip does not. Dog walking helps with walking stick on the R side. Activities of laundry and [employer] work still causes back pain, doing dishes. Manages it by lying down, sit down on heating pad and does leg traction and trunk twists and gentle yoga. Patient Questionnaires Lower Extremity Functional Scale LEFS Score 47 LEFS Impairment 40 to 59% Impaired (Score 32- 47) PT-OP-G Mobility & Gait Start: 10/09/21 12:17 Freq: Status: Active Protocol: Document 10/09/21 13:35 LRN (Rec: 10/09/21 17:43 LRN [id number]) OP Gait Assessment Gait Gait Assistance Required: Independent Able to Maintain Weight Bearing Status Yes During Gait Assistive Devices Assistive Device None Comments Gait Comments Pt notes normal gait. PT-OP-H Neuro Start: 10/09/21 12:17 Freq: Status: Active Protocol: Document 10/09/21 13:35 LRN (Rec: 10/09/21 17:43 LRN [id number]) Sensation Evaluation Gross Sensation Gross Sensation WNL Location Details Left Foot Light Touch Impaired Sharp/Dull Intact/Normal Deep Pressure Intact/Normal Hot/Cold Intact/Normal PT-OP-J Posture/Palpation/Skin Start: 10/09/21 12:17 Freq: Status: Active Protocol: Document 10/09/21 13:35 LRN (Rec: 10/09/21 17:43 LRN [id number]) Posture Evaluation Position Standing Evaluation View all positions Head/C-Spine Posture Forward Head T-Spine Posture Increased Kyphosis Shoulder Posture (L) Elevated Pelvis Posture (L) Iliac Crest Superior Ankle/Foot Posture (L) Forefoot Eversion,(R) Forefoot Eversion Comments Posture Comments Varus of lower legs, slight scoliosis towards bottom of spine (apex is left in upper curve, right in lower curve, reversal at T/L junction). Palpation Assessment Location SIJ Palpation Location R side - decreased mobility for PA and inferior glide. Palpation Findings Soft Tissue Tightness, Tenderness PT-OP-K Range of Motion Start: 10/09/21 12:17 Freq: Status: Active Protocol: Document 12/11/21 09:11 LRN (Rec: 12/11/21 12:17 LRN [id number]) Hip Goniometric Range of Motion Hip Right Passive Testing Position Supine Internal Rotation 25 External Rotation 80 Left Passive Testing Position Supine Internal Rotation 35 External Rotation 85 PT-OP-L Special Tests Start: 10/09/21 12:17 Freq: Status: Active Protocol: Document 10/12/21 09:04 LRN (Rec: 10/12/21 09:47 LRN [id number]) Special Tests Hip Special Tests Thigh Thrust Test Test Results - Bilaterally Gaenslen Test Test Results + Right JACKIE Test Results - Bilaterally PT-OP-M Strength Start: 10/09/21 12:17 Freq: Status: Active Protocol: Document 10/09/21 13:35 LRN (Rec: 10/09/21 17:43 LRN [id number]) Trunk Strength Trunk Manual Muscle Testing Testing Position Supine Core Stabilization WNL Hip Strength Hip Manual Muscle Testing Right Flexion (L2) 5 Normal Extension (S1) 5 Normal Abduction 5 Normal Adduction 3- Fair- External Rotation 5 Normal Internal Rotation 4+ Good+ Left Flexion (L2) 5 Normal Extension (S1) 5 Normal Abduction 5 Normal Adduction 5 Normal External Rotation 5 Normal Internal Rotation 5 Normal Knee Strength Knee Manual Muscle Testing Right Flexion (S2) 5 Normal Extension (L3) 5 Normal Left Flexion (S2) 5 Normal Extension (L3) 5 Normal PT-OP-Q Treatments Start: 10/09/21 12:17 Freq: Status: Active Protocol: Document 01/08/22 11:18 LRN (Rec: 01/08/22 12:13 LRN [id number]) Cardio Equipment Treadmill Duration (Minutes) 6 Speed 1.4 Incline 0 Other Stopped x 2 for hip/LB stretches. See gait section for other specifics Therapeutic Exercises Supine Exercises Norman Arms lifts w/legs straight Supine Exercise Name Norman Arm lifts w/Legs straight Reps/Minutes 15x 2 arm/1 leg lift Supine Exercise Name Raise both arms & 1 leg Reps/Minutes 15x each side Alt Arm/Leg lifts Supine Exercise Name Alt Arm/Leg lift Side bilateral Reps/Minutes 15x TA leg lifts Supine Exercise Name TA/knees flexed > straighten knee > lower leg > heel slide up Side bilateral Reps/Minutes 15x each side Comments Extra time to review for core stability Trunk rot Supine Exercise Name Trunk rot stretch Side bilateral Reps/Minutes 3' TA Heel slides Supine Exercise Name TA/Norman heel slides Side bilateral Reps/Minutes 15x Comments R hip started to hurt at end. TA/Norman arm lifts Supine Exercise Name TA/Norman Arm lifts Side bilateral Reps/Minutes 15x Standing Exercises Trunk Rot Standing Exercise Name Active trunk rot stretch Side bilateral Reps/Minutes 3' Self-Care/Home Management Treatment Education Patient Education Home Exercise Program,Pain Management Activities Self-Care/Home Management Activities Issued & reviewed HEP of core stab exercise. Verbal review of pt's self care program after daily activities: laundry, washing dishes, sweeping/vacuuming, work activities for [employer], dog walking. Reviewed HEP for pain management, including but not limited to use of MH/Ice, resting in sup, sit, stand, and exercises. Discussed use of yoga to continue working toward improved mobility. PT-OP-T Assessment and Plan Start: 10/09/21 12:17 Freq: Status: Active Protocol: Document 01/08/22 11:18 LRN (Rec: 01/08/22 12:13 LRN [id number]) Physical Therapy Assessment Goals Three Impairment Decreased function (LEFS score of 50 (20-39% impaired)) Short Term Goal (STG) Improve function with pt able to do laundry (reaching up/ down for clothes) and improve LEFS score of no less than 55. (11/23/21: Progressing: no pain putting in/ out machines but folding and putting it away is still hard to do). (12/04/21: LEFS score of 40) (01/02/22: Hip pain putting clothes away because of repetitive reaching down to get clothes, back pain starts, exacerbating pain rated 3/10) . 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 11/23/21: has not been able to do yoga due to pain and [employer] is off for couple weeks and unavailable. (12/04/21: Has returned to yoga. Not able to sweep 2 hrs due to pain. Has pain with walking). (01/02/22: 2 hrs after [employer] work her pain is 6/10). LTG Duration 01/15/22 (01/08/22: Partially met goal, returned to yoga) Two Impairment Bilateral Hip/Low Back Pain rated 8/10 Short Term Goal (STG) Decrease norman hip/low back pain to no greater than 4/10. (11/23/21: hip and LBP 6-8/10 and hip are starting to ache) (12/04/21: Hip pain 3/10). (12/18/21: After working, R LBP 6/10) STG Duration 11/27/20 (12/04/21: MET GOAL) Intermediate Goal (LTG) Pt will be able to manage her norman hip/LB pain to a tolerable level (or alleviate the pain) with proper posturing and exercises. 11/23/21: states is trying to be more aware of seated posture and improved with self corrections of more errect posture. (01/02/22: When active pain is the same as before, at rest pain is less). LTG Duration 01/15/22 (01/02/22: MET GOAL) One Impairment Lacks appropriate self care HEP Short Term Goal (STG) Pt educated in proper body mechanics and modality use to help decrease pain. STG Duration 10/20/21 (11/06/21: MET GOAL ) Intermediate Goal (LTG) Pt will be independent on a self care HEP of low back and hip stretches/strengthening exercises. (10/30/21: Added HEP: Hamstring/LE neural stretch). (11/06/21: Added verbal instructions in thoracic rot - open book ex) (11/11/21: initiated hip ITB & adductor stretch, open book) (12/11/21: Added trunk SB & rot stretch) (12/25/21: HEP: ER/IR hip strengthening & sup trunk rot and thread the needle thoracic rot stretch). LTG Duration 01/15/22 (01/08/22: MET GOAL) Progress Towards Goals Progress Comments LEFS is 47 (40-59% impaired, score 32-47), intially was 50 (20-39% impaired, score 48-62) Assessment Summary Assessment Pt overall has done well with therapy. She attends today with report of LBP, but no R hip pain. She experiences R hip pain after her laundry and dishwashing activities and her [employer] activities but is able to manage her pain. Today the pt is able to perform progression of core strengthening in neutral position with onset of R hip pain with double leg slides. The pt may need therapy in the future if her pain returns after too much activity, to help her improve her spinal and hip mobility and regain core stability. Physical Therapy Plan Discharge Physical Therapy Discharge Comments Pt feels ready to be placed on a self care HEP. She is able to manage her pain after her home care activities and [employer] activities. She has good understanding of her core stab exercises and is using MH/Ice to help manage her pain. The pt will need to continue working on maintaining good posture, core stability and mobility of her spine and hips to manage her pain. Thank you for your referral.
== END 2022-01-09 08:09 ==
LOC: PHYS 11:15
PROVIDERS: Family Provider Nurse Practitioner Family; PCP Nurse Practitioner Family; Referring Provider Nurse Practitioner Family; Visit Provider Nurse Practitioner Family
DX: M25.559 Pain in unspecified hip (principal); M62.81 Muscle weakness (generalized); M40.04 Postural kyphosis, thoracic region; R26.89 Other abnormalities of gait and mobility
CPT/HCPCS: 97110; 97116; 97140; 97162; 97535

== ENCOUNTER → 2022-01-18 14:13 | Outpatient (CLI) | payer OTHER, MEDICAID, SELFPAY ==
[2022-01-18 14:40] LABS: Add Manual Diff / Slide Review NO; Basophils Absolute Auto 0 /uL (0-100); Basophils Percent Auto 0.4 % (0-2); Eosinophils Absolute Auto 100 /uL (0-450); Eosinophils Percent Auto 1.9 % (2-4); Hematocrit 36.8 % (36-46); Hemoglobin 11.9 g/dL (12.0-16.0); Lymphocytes Absolute Auto 2800 /uL (1100-4500); Lymphocytes Percent Auto 41.5 % (25-40); Mean Corpuscular HGB Conc 32.3 % (30-36); Mean Corpuscular Hemoglobin 27.2 PG (26-34); Monocytes Absolute Auto 400 /uL (0-900); Monocytes Percent Auto 6.6 % (3-14); Neutrophils Absolute Auto 3400 /uL (1500-7000); Neutrophils Percent Auto 49.6 % (50-75); Platelet Count 321 X10^3/uL (150-400); Red Blood Cell Count 4.38 X10^6/uL (4.0-5.2); Red Cell Distribution Width 14.8 % (11.6-14.8); White Blood Cell Count 6.8 X10^3/uL (4.5-11.0)
[2022-01-18 14:44] LABS: Reticulocyte Count, Percent 1.1 % (1.1-2.6)
[2022-01-18 15:00] LABS: HEMOLYSIS < 15 (0-50); Iron 73 ug/dL (37-170)
[2022-01-18 15:01] LABS: BUN Creatinine Ratio 21.4 (6-22); Blood Urea Nitrogen 21 mg/dL (7-17); Carbon Dioxide 32 mmol/L (22-32); Chloride 102 mmol/L (98-107); Estimated Glomerular Filt Rate 59.6 mL/min (>60); Glucose 107 mg/dL (70-100); HEMOLYSIS < 15 (0-50); Potassium 3.7 mmol/L (3.4-5.1); Sodium 141 mmol/L (137-145)
[2022-01-18 15:11] LABS: Percent Iron Saturation 18 % (15-50); Total Iron Binding Capacity 398 ug/dL (265-497); Transferrin 309 mg/dL (206-381)
[2022-01-18 15:36] LABS: Ferritin 11 ng/mL (11-264)
[2022-01-18 16:07] LABS: Folate > 20.0 ng/mL (2.76-20.0); Vitamin B12 479 pg/mL (239-931)
== END ==
PROVIDERS: Family Provider Nurse Practitioner Family; PCP Nurse Practitioner Family; Referring Provider Nurse Practitioner Family; Visit Provider Nurse Practitioner Family
DX: D64.9 Anemia, unspecified (principal)
CPT/HCPCS: 36415; 80048; 82607; 82728; 82746; 83540; 83550; 85025; 85045

== ENCOUNTER → 2022-01-22 13:52 | Outpatient (CLI) | payer OTHER, MEDICAID, SELFPAY ==
[2022-01-24 08:09] LABS: Fecal Immunochemical Test Negative (Negative)
== END ==
PROVIDERS: Family Provider Nurse Practitioner Family; PCP Nurse Practitioner Family; Referring Provider Nurse Practitioner Family; Visit Provider Nurse Practitioner Family
DX: D64.9 Anemia, unspecified (principal)
CPT/HCPCS: 82274

== ENCOUNTER → 2022-02-24 11:24 | Outpatient (CLI) | payer OTHER, MEDICAID, SELFPAY ==
[2022-03-10 17:07] LABS: Acetylcholine Blocking AB 16 % (0-25); Acetylcholine Receptor Bind AB <0.03 nmol/L (0.00-0.24); MuSK Antibodies <1.0 U/mL (.)
== END ==
PROVIDERS: Family Provider Nurse Practitioner Family; PCP Nurse Practitioner Family; Referring Provider Psychiatry & Neurology Neurology; Visit Provider Psychiatry & Neurology Neurology
DX: H53.123 Transient visual loss, bilateral (principal)
CPT/HCPCS: 36415; 83519; 86255

== ENCOUNTER → 2022-03-02 15:44 | Outpatient (CLI) | payer OTHER, MEDICAID, SELFPAY ==
--- NOTE | 2022-03-02 | DI.MRI.S_ITS ---
PROCEDURE: MR ANGIO HEAD WO CON INDICATIONS: Transient visual loss, bilateral TECHNIQUE: Noncontrast axial 3-D [id number] MR angiogram, with 3-dimensional maximum intensity projection (MIP) reformats of the internal carotid arteries and posterior circulation then performed. COMPARISON: [facility], MR, MR ANGIO NECK W CON, 03/02/2022, 16:11. [facility], MR, MR HEAD/BRAIN WO CON, 09/29/2021, 14:16. FINDINGS: Image quality: Excellent. Anterior circulation: Intracranial internal carotid arteries demonstrate normal size and intraluminal flow signal. The flow within the paired anterior cerebral arteries is normal and symmetric. The flow within the middle cerebral arteries is normal and symmetric. The anterior communicating artery is seen. No stenoses, occlusions, or aneurysms. Posterior circulation: Visualized portions of the vertebral arteries demonstrate normal caliber, and join to form a normal appearing basilar artery. The flow within the posterior cerebral arteries is normal and symmetric. No stenoses, occlusions, or aneurysms. IMPRESSION: Unremarkable intracranial MR angiogram, without a cause of the patient's symptoms identified. Dictated by: Price Kwan M.D. on 03/02/2022 at 15:49 Approved by: Price Kwan M.D. on 03/02/2022 at 15:50
--- NOTE | 2022-03-02 | DI.MRI.S_ITS ---
PROCEDURE: MR ANGIO NECK W CON INDICATIONS: Transient visual loss, bilateral TECHNIQUE: Axial and sagittal TruFISP through the neck. Coronal dynamic MRA after the administration of contrast in the arterial and venous phases, with rotating 3-dimensional maximum intensity projection (MIP) reformats constructed from subtraction images. COMPARISON: [facility], MR, MR ANGIO HEAD WO CON, 03/02/2022, 16:02. [facility], MR, MR HEAD/BRAIN WO CON, 09/29/2021, 14:16. [facility], US, US CAROTID DOPPLER BI, 11/23/2021, 12:03. FINDINGS: Image quality: This examination is limited by involuntary motion artifact. Carotid system: Great vessels demonstrate a conventional anatomy as they arise from the aortic arch. The origins of the common carotid arteries appear normal. The calibers and courses of the common carotid arteries are likewise normal. The carotid bifurcations appear normal bilaterally. The internal carotid arteries are widely patent up to the [place]. Posterior circulation: The origins of the vertebral arteries demonstrate approximately 50% narrowing. The more superior portions of the vertebral arteries demonstrate normal course and caliber. Vertebral arteries join to form a normal appearing basilar artery. Miscellaneous: Subclavian arteries are patent throughout. Pre-contrast images through the neck demonstrate no soft tissue abnormalities. IMPRESSION: No significant carotid narrowing can be seen. Approximately 50% narrowing can be seen involving the origins of the vertebral arteries. Any quantitative measurements of stenosis were performed using NASCET criteria. Dictated by: Price Kwan M.D. on 03/02/2022 at 15:51 Approved by: Price Kwan M.D. on 03/02/2022 at 15:53
== END ==
PROVIDERS: Family Provider Nurse Practitioner Family; PCP Nurse Practitioner Family; Referring Provider Psychiatry & Neurology Neurology; Visit Provider Psychiatry & Neurology Neurology
DX: H53.123 Transient visual loss, bilateral (principal); I65.03 Occlusion and stenosis of bilateral vertebral arteries
CPT/HCPCS: 70544; 70548; A9579

== ENCOUNTER → 2022-05-10 07:29 | Outpatient (CLI) | payer OTHER, MEDICAID, SELFPAY ==
[2022-05-10 07:52] LABS: Hematocrit 33.2 % (36-46); Hemoglobin 10.9 g/dL (12.0-16.0); Mean Corpuscular HGB Conc 32.9 % (30-36); Mean Corpuscular Hemoglobin 26.9 PG (26-34); Mean Corpuscular Volume 81.8 fL (80-100); Platelet Count 298 X10^3/uL (150-400); Red Blood Cell Count 4.06 X10^6/uL (4.0-5.2); Red Cell Distribution Width 15.8 % (11.6-14.8); White Blood Cell Count 7.2 X10^3/uL (4.5-11.0)
[2022-05-10 08:09] LABS: HEMOLYSIS < 15 (0-50); Iron 53 ug/dL (37-170)
[2022-05-10 08:10] LABS: BUN Creatinine Ratio 19.8 (6-22); Blood Urea Nitrogen 19 mg/dL (7-17); Calcium 9.3 mg/dL (8.4-10.2); Carbon Dioxide 35 mmol/L (22-32); Chloride 103 mmol/L (98-107); Estimated Glomerular Filt Rate > 60 mL/min (>60); Glucose 96 mg/dL (70-100); HEMOLYSIS < 15 (0-50); Potassium 3.8 mmol/L (3.4-5.1); Sodium 141 mmol/L (137-145)
[2022-05-10 08:20] LABS: Percent Iron Saturation 14 % (15-50); Total Iron Binding Capacity 378 ug/dL (265-497); Transferrin 303 mg/dL (206-381)
[2022-05-10 08:22] LABS: Creatinine Urine Random 178.9 mg/dL; Microalbumi Creatinin Ratio Ur 8.3 ug/mg CR (<30); Microalbumin Urine Random 1.5 mg/dL (0-1.6)
[2022-05-10 08:44] LABS: Ferritin 10 ng/mL (11-264)
== END ==
PROVIDERS: Family Provider Nurse Practitioner Family; PCP Registered Nurse Diabetes Educator; Referring Provider Registered Nurse Diabetes Educator; Visit Provider Registered Nurse Diabetes Educator
DX: D64.9 Anemia, unspecified (principal); R94.4 Abnormal results of kidney function studies
CPT/HCPCS: 36415; 80048; 82043; 82570; 82728; 83540; 83550; 85027

== ENCOUNTER → 2022-06-21 12:31 | Outpatient (CLI) | payer OTHER, MEDICAID, SELFPAY ==
--- NOTE | 2022-06-21 12:33 | DI.MG.S_ITS ---
BILATERAL DIGITAL SCREENING MAMMOGRAM 3D/2D WITH CAD: 06/21/2022 CLINICAL: Routine screening. Family history of breast cancer. Comparison is made to exams dated: 06/01/2021 mammogram - [facility], 06/11/2019 mammogram, and 05/16/2018 mammogram - [facility]. The tissue of both breasts is predominantly fatty. Current study was also evaluated with a Computer Aided Detection (CAD) system. There are benign calcifications in the left breast. No significant masses, calcifications, or other findings are seen in either breast. There has been no significant interval change. IMPRESSION: BENIGN There is no mammographic evidence of malignancy. A 1 year screening mammogram is recommended. Based on the Tyrer Cuzick model (a risk assessment model) the patient's lifetime risk is 3.7% and her 10 year risk is 1.0%. According to the ACR, ACS, and NCCN guidelines, an annual breast MRI exam along with mammogram is recommended if the patient's lifetime risk is 20% or greater. This exam was interpreted at Station ID: [id number]. NOTE: For mammograms, a report in lay terms will be sent to the patient. Approximately 15% of breast malignancies will not be visualized mammographically. In the management of a palpable breast mass, a negative mammogram must not discourage biopsy of a clinically suspicious lesion. Electronically Signed By: Kacy berry/carmen:06/21/2022 14:56:15 letter sent: Normal Exam ACR BI-RADS Category 2: Benign Finding(s) 3342F
== END ==
PROVIDERS: Family Provider Nurse Practitioner Family; PCP Registered Nurse Diabetes Educator; Referring Provider Registered Nurse Diabetes Educator; Visit Provider Registered Nurse Diabetes Educator
DX: Z12.31 Encounter for screening mammogram for malignant neoplasm of breast (principal); Z80.3 Family history of malignant neoplasm of breast
CPT/HCPCS: 77063; 77067

== ENCOUNTER → 2022-09-24 09:52 | Outpatient (CLI) | payer OTHER, MEDICAID, SELFPAY ==
[2022-09-24 11:31] LABS: Add Manual Diff / Slide Review NO; Basophils Absolute Auto 0 /uL (0-100); Basophils Percent Auto 0.7 % (0-2); Eosinophils Absolute Auto 200 /uL (0-450); Eosinophils Percent Auto 3.4 % (2-4); Hemoglobin 11.5 g/dL (12.0-16.0); Lymphocytes Absolute Auto 2000 /uL (1100-4500); Mean Corpuscular HGB Conc 32.7 % (30-36); Mean Corpuscular Hemoglobin 27.9 PG (26-34); Mean Corpuscular Volume 85.1 fL (80-100); Monocytes Absolute Auto 400 /uL (0-900); Monocytes Percent Auto 6.7 % (3-14); Neutrophils Absolute Auto 2700 /uL (1500-7000); Neutrophils Percent Auto 51.2 % (50-75); Platelet Count 291 X10^3/uL (150-400); Red Blood Cell Count 4.12 X10^6/uL (4.0-5.2); Red Cell Distribution Width 16.7 % (11.6-14.8); White Blood Cell Count 5.3 X10^3/uL (4.5-11.0)
[2022-09-24 11:53] LABS: HEMOLYSIS < 15 (0-50); Iron 95 ug/dL (37-170)
[2022-09-24 11:56] LABS: Alanine Aminotransferase 31 IU/L (<35); Albumin 4.2 g/dL (3.5-5.0); Albumin Globulin Ratio 1.5 (1.0-2.8); Alkaline Phosphatase 82 U/L (38-126); Aspartate Aminotransferase 31 IU/L (14-36); BUN Creatinine Ratio 18.3 (6-22); Bilirubin Total 0.3 mg/dL (0.2-1.3); Blood Urea Nitrogen 17 mg/dL (7-17); Calcium 9.5 mg/dL (8.4-10.2); Carbon Dioxide 31 mmol/L (22-32); Chloride 102 mmol/L (98-107); Cholesterol 135 mg/dL (140-199); Estimated Glomerular Filt Rate > 60 mL/min (>60); Globulin 2.8 g/dL (1.7-4.1); Glucose 91 mg/dL (70-100); HDL Cholesterol 42 mg/dL (40-60); HEMOLYSIS < 15 (0-50); LDL Cholesterol Calculated 73 mg/dL (<100); Potassium 3.9 mmol/L (3.4-5.1); Sodium 140 mmol/L (137-145); Triglycerides 98 mg/dL (35-150)
[2022-09-24 12:07] LABS: Percent Iron Saturation 26 % (15-50); Total Iron Binding Capacity 368 ug/dL (265-497); Transferrin 286 mg/dL (206-381)
[2022-09-24 12:28] LABS: TSH w/ Reflex to FT4 2.56 uIU/mL (0.47-4.68)
[2022-09-24 12:29] LABS: Ferritin 13 ng/mL (11-264)
== END ==
PROVIDERS: Family Provider Nurse Practitioner Family; PCP Registered Nurse Diabetes Educator; Referring Provider Registered Nurse Diabetes Educator; Visit Provider Registered Nurse Diabetes Educator
DX: D64.9 Anemia, unspecified (principal); E78.5 Hyperlipidemia, unspecified; R94.4 Abnormal results of kidney function studies
CPT/HCPCS: 36415; 80053; 80061; 82728; 83540; 83550; 84443; 85025

== ENCOUNTER → 2022-12-25 08:08 | Outpatient (CLI) | payer OTHER, MEDICAID, SELFPAY ==
[2022-12-25 09:35] LABS: Hematocrit 36.1 % (36-46); Mean Corpuscular HGB Conc 33.3 % (30-36); Mean Corpuscular Hemoglobin 28.4 PG (26-34); Mean Corpuscular Volume 85.3 fL (80-100); Platelet Count 305 X10^3/uL (150-400); Red Blood Cell Count 4.23 X10^6/uL (4.0-5.2); Red Cell Distribution Width 14.7 % (11.6-14.8); White Blood Cell Count 5.7 X10^3/uL (4.5-11.0)
[2022-12-25 09:55] LABS: HEMOLYSIS < 15 (0-50); Iron 65 ug/dL (37-170)
[2022-12-25 10:08] LABS: Percent Iron Saturation 17 % (15-50); Total Iron Binding Capacity 392 ug/dL (265-497); Transferrin 281 mg/dL (206-381)
[2022-12-25 10:32] LABS: Ferritin 14 ng/mL (11-264)
== END ==
PROVIDERS: Family Provider Nurse Practitioner Family; PCP Registered Nurse Diabetes Educator; Referring Provider Registered Nurse Diabetes Educator; Visit Provider Registered Nurse Diabetes Educator
DX: D64.9 Anemia, unspecified (principal)
CPT/HCPCS: 36415; 82728; 83540; 83550; 85027

== ENCOUNTER → 2023-02-20 13:06 | Outpatient (ROUT) | payer OTHER, MEDICAID, SELFPAY ==
[2023-02-21 09:49] LABS: Fecal Immunochemical Test Positive (Negative)
== END ==
PROVIDERS: Family Provider Nurse Practitioner Family; PCP Registered Nurse Diabetes Educator; Visit Provider Registered Nurse Diabetes Educator
DX: Z12.11 Encounter for screening for malignant neoplasm of colon (principal)
CPT/HCPCS: 82274

== ENCOUNTER 2023-04-23 12:40 | Day surgery (SDC) | payer OTHER, MEDICAID, SELFPAY ==
--- NOTE | 2023-04-23 | PATH_ITS ---
[facility] Accession Number: [id number] No. of containers..01 Tissue . 01 Material submitted: . colon - DESCENDING COLON POLYP . 01 Diagnosis: Descending Colon Polyp, Biopsy: Inflammatory polyp. [facility] 04/29/2023 1113 Local . 01 Electronically signed: . Doris Martinez MD, Pathologist NPI- [id number] . 01 Gross description: . DESCENDING COLON POLYP: Received in formalin is 1 fragment(s) of rock, soft tissue measuring 0.3 x 0.2 x 0.2 cm submitted entirely in 1 cassette(s) /[facility] 04/24/2023 2258 Local . 01 Pathologist provided ICD-10: K51.40 . 01 CPT . 736843 Specimen Comment: A courtesy copy of this report has been sent to [phone] Performed at: 01 [facility] [address] [place] [address], [place], [place] [id number] MD Memo Rico MD Phone: [phone]
[2023-04-23 13:23] VITALS: BMI 33.3
[2023-04-23 13:40] VITALS: BP 116/77; PULSE 67; RESP 17; TEMP 35.7; O2SAT 100
[2023-04-23] MEDS: LACTATED RINGERS 1,000 ML 200 ML IV (13:44)
--- NOTE | 2023-04-23 13:48 | PM.HP.1 ---
History of Present Illness History of Present Illness Date Patient Seen: 04/23/23 Time Patient Seen: 13:49 Chief complaint: Colonoscopy Narrative: 52-year-old woman here for diagnostic colonoscopy secondary to positive fecal immunochemical test. Previously normal colonoscopy 10 years ago. No personal or family history of colon cancer. On further history denies any recent gastrointestinal symptoms. No nausea, vomiting, abdominal pain, loss of appetite, unexplained weight loss, change in bowel habits, or blood per rectum. [facility] Medical History (Updated 04/23/23 @ 13:52 by Sujit Rosales MD) Acquired autoimmune hypothyroidism (2017) Allergies Amaurosis fugax, both eyes (08/2020) Anemia Anxiety (~1999) Autism Cataracts, bilateral (~1998) Chronic back pain (~2009) Decreased GFR Deep vein thrombosis (~1992) Depression (2009) Dyslipidemia Eczema (~2017) Encounter for routine gynecological examination (05/16/21) Encounter for wellness examination in adult (05/16/21) Essential hypertension Hip pain History of non-Hodgkin's lymphoma (1994) History of suicide attempt (2009) HSV-2 seropositive Intermittent palpitations (07/2021) Intra-ventricular conduction delay (08/2021) Lymphedema Lymphoma (~1995) Menopause (~1995) Mixed hyperlipidemia (06/2020) Obstructive sleep apnea (adult) (pediatric) Possible exposure to STD PTSD (post-traumatic stress disorder) (~1996) Scoliosis (~1971) Snoring (2016) Thyroid nodule incidentally noted on imaging study (10/2021) Vision changes (08/2020) Surgical History Anesthesia History of biopsy (~1993) History of laparoscopy (~1992) Family History Father History of heart disease Mental health problem Stroke Sister Mental health problem Grandmother Ovarian cancer Grandfather History of heart disease Stroke Grandmother Breast cancer Dementia Family/Other Mental health problem Social History household members: none Smoking Status: Never smoker second hand exposure: No alcohol intake: never substance use type: does not use Meds Home Medications and Allergies Home Medications Medication Instructions Recorded Confirmed Type Disabled Parking Permit See Rx Instructions .Route 10/10/20 04/02/23 Rx .COMPLEX #1 unit magnesium oxide 400 mg PO DAILY 12/19/21 04/23/23 History oxycodone 10 mg tablet 10 mg PO TID 12/19/21 04/23/23 History varicella-zoster glycoE [id number] 0.5 ml IM ONCE #1 ea 06/29/22 04/02/23 Rx adj(PF) 50 mcg/0.5 mL IM susp, kit (Shingrix (PF)) ferrous sulfate 325 mg (65 mg 325 mg PO DAILY 07/24/22 04/23/23 History iron) tablet (Sly-Time) rosuvastatin 10 mg tablet 10 mg PO DAILY #90 tabs 10/02/22 04/23/23 Rx ResMed Airsense 10 10/10/22 04/02/23 History aripiprazole 5 mg tablet See Rx Instructions .Route 02/13/23 04/23/23 Rx .COMPLEX #90 tabs levothyroxine 25 mcg tablet 25 mcg PO DAILY #90 tabs 02/13/23 04/23/23 Rx trazodone 50 mg tablet See Rx Instructions .Route 02/13/23 04/23/23 Rx .COMPLEX #270 tabs duloxetine 30 mg capsule,delayed 90 mg PO DAILY #270 caps 04/02/23 04/23/23 Rx release lisinopril 10 1 tab PO DAILY #90 tabs 04/02/23 04/23/23 Rx mg-hydrochlorothiazide 12.5 mg tablet Allergies Allergy/AdvReac Type Severity Reaction Status Date / Time ciprofloxacin [From Cipro] Allergy Severe Sneezing Verified 04/23/23 13:19 diphenhydramine Allergy Severe suicidal Verified 04/23/23 13:19 [From Benadryl] iodine Allergy Severe Sneezing Verified 04/23/23 13:19 latex Allergy Severe sore Verified 04/23/23 13:19 Exam Vital Signs (past 8 hours): - 04/23/23 13:40 Temperature 96.2 F L Pulse Rate 67 Respiratory Rate 17 Blood Pressure 116/77 Pulse Oximetry 100 Oxygen Delivery Method Room Air Oxygen Delivery Method Room Air Narrative Exam Narrative: General adult woman alert oriented no acute distress Abdomen soft nontender nondistended Assessment & Plan Assessment and plan (1) Positive FIT (fecal immunochemical test): Status: Acute Assessment & Plan narrative: 52-year-old woman with a positive fecal immunochemical test here for diagnostic colonoscopy. Technical details were discussed. Risks, benefits, alternatives explained. Risks including but not limited to myocardial infarction, aspiration, bleeding, pain, missed lesion, incomplete examination, need for further radiographic studies, colonic perforation, and need for major abdominal surgery were discussed. All questions were answered to their satisfaction, and they are in agreement with this plan.
[2023-04-23 14:17] VITALS: BP 109/67; PULSE 69; RESP 17; TEMP 36.4; O2SAT 95
--- NOTE | 2023-04-23 14:19 | P.OP.COLON_ITS ---
Operative Date/Time/Diagnoses Date of procedure: 04/23/23 Time of procedure: 14:19 Pre-op diagnosis: Positive fecal immunochemical test Post-op diagnosis: other (Colonic polyp x1) Procedure & Clinicians Study performed: Colonoscopy and polypectomy Same procedure as scheduled: Yes Indications: Positive fecal immunochemical test Surgeon: Sujit Rosales Procedure Notes Procedure in detail: The history and physical was performed/updated and the patient is ASA class is 3. The procedure was discussed in detail with the patient. Potential risks complications including infection, bleeding, missed diagnosis, perforation, need for surgery, and were explained. Their questions were answered and informed consent was obtained. Patient was brought to the procedure room and placed standard monitoring equipment. The patient's vital signs were monitored continuously throughout the entire procedure. Prior to starting time-out was performed. The patient was placed in the left lateral recumbent position. Procedural sedation was admini stered by anesthesia. Examination began with a thorough inspection of the perianal area there was no evidence of fissures, fistulae, external hemorrhoids or cutaneous malignancy. The colonoscopy scope was then placed into the anal canal and was advanced to the cecum, which was identified by the ileocecal valve, the appendiceal orifice and the confluence of the taenia. The scope was then slowly withdrawn examining colon thoroughly in all directions, irrigating it of any residual stool. Within the descending colon there was a 5 mm polyp which was removed in its entirety with cold snare. The remainder of the colon was unremarkable. The patient tolerated the procedure well. They will be discharged once criteria are met. The prep was of good/excellent quality. The withdrawl time was 7 minutes. Specimen(s): other (Descending colon polyp) Impression: Colonic polyp x1 Post-procedure Plan for aftercare: Look follow-up as dependent on pathology findings
[2023-04-23 14:25] VITALS: BP 105/66; PULSE 63; RESP 13; O2SAT 99
[2023-04-23 14:29] VITALS: BP 113/74; PULSE 64; RESP 15; O2SAT 99
[2023-04-23 14:34] VITALS: BP 111/69; PULSE 64; RESP 20; O2SAT 99
== END 2023-04-23 15:02 | disposition home or self-care (01) ==
PROVIDERS: Family Provider Nurse Practitioner Family; PCP Registered Nurse Diabetes Educator; Referring Provider Surgery; Visit Provider Surgery
PROC: 0DJD8ZZ Inspection of Lower Intestinal Tract, Via Natural or Artificial Opening Endoscopic (ICD-10-PCS; CPT 45378; principal; 2023-04-23 14:00)
DX: R19.5 Other fecal abnormalities (principal); Z12.11 Encounter for screening for malignant neoplasm of colon; K51.40 Inflammatory polyps of colon without complications
CPT/HCPCS: 45385; J2704

== ENCOUNTER → 2023-05-29 10:15 | Outpatient (CLI) | payer OTHER, MEDICAID, SELFPAY ==
[2023-05-29 11:52] LABS: BUN Creatinine Ratio 19.4 (6-22); Blood Urea Nitrogen 20 mg/dL (7-17); Calcium 9.9 mg/dL (8.4-10.2); Carbon Dioxide 34 mmol/L (22-32); Chloride 98 mmol/L (98-107); Estimated Glomerular Filt Rate > 60 mL/min (>60); Glucose 91 mg/dL (70-100); HEMOLYSIS < 15 (0-50); Potassium 4.3 mmol/L (3.4-5.1); Sodium 136 mmol/L (137-145)
== END ==
PROVIDERS: Family Provider Nurse Practitioner Family; PCP Registered Nurse Diabetes Educator; Referring Provider Registered Nurse Diabetes Educator; Visit Provider Registered Nurse Diabetes Educator
DX: I10 Essential (primary) hypertension (principal)
CPT/HCPCS: 36415; 80048

== ENCOUNTER 2023-05-30 00:12 | Emergency (ER) | payer OTHER, MEDICAID, SELFPAY ==
[2023-05-30 00:18] VITALS: BP 113/72; PULSE 84; RESP 18; TEMP 36.6; O2SAT 98
--- NOTE | 2023-05-30 02:08 | ED_ITS ---
HPI - Animal Bite General Chief Complaint: Animal Bite Stated Complaint: attacked by raccoon Time Seen by Provider: 05/30/23 02:05 Source: patient Mode of arrival: Ambulatory History of Present Illness HPI narrative: Patient 53-year-old female with unrelated past medical history presenting today after being attacked by very large raccoon. She reports that she went out to intervene between the raccoon and her small dog when the raccoon scratched her and bit her leg. Related Data Home Medications Medication Instructions Recorded Confirmed magnesium oxide 400 mg PO DAILY 12/19/21 04/23/23 oxycodone 10 mg tablet 10 mg PO TID 12/19/21 04/23/23 ferrous sulfate 325 mg (65 mg 325 mg PO DAILY 07/24/22 04/23/23 iron) tablet (Sly-Time) [facility] Airsense 10 10/10/22 04/02/23 Previous Rx's Medication Instructions Recorded Disabled Parking Permit See Rx Instructions .Route 10/10/20 .COMPLEX #1 unit varicella-zoster glycoE [id number] 0.5 ml IM ONCE #1 ea 06/29/22 adj(PF) 50 mcg/0.5 mL IM susp, kit (Shingrix (PF)) rosuvastatin 10 mg tablet 10 mg PO DAILY #90 tabs 10/02/22 aripiprazole 5 mg tablet See Rx Instructions .Route 02/13/23 .COMPLEX #90 tabs levothyroxine 25 mcg tablet 25 mcg PO DAILY #90 tabs 02/13/23 trazodone 50 mg tablet See Rx Instructions .Route 02/13/23 .COMPLEX #270 tabs duloxetine 30 mg capsule,delayed 90 mg PO DAILY #270 caps 04/02/23 release lisinopril 10 1 tab PO DAILY #90 tabs 04/02/23 mg-hydrochlorothiazide 12.5 mg tablet Allergies Allergy/AdvReac Type Severity Reaction Status Date / Time ciprofloxacin [From Cipro] Allergy Severe Sneezing Verified 04/23/23 13:19 diphenhydramine Allergy Severe suicidal Verified 04/23/23 13:19 [From Benadryl] iodine Allergy Severe Sneezing Verified 04/23/23 13:19 latex Allergy Severe sore Verified 04/23/23 13:19 Review of Systems Review of Systems ROS Unobtainable: All systems reviewed & are unremarkable except as noted in HPI and below Patient History Medical History Acquired autoimmune hypothyroidism (2017) Allergies Amaurosis fugax, both eyes (08/2020) Anemia Anxiety (~1999) Autism Cataracts, bilateral (~1998) Chronic back pain (~2009) Decreased GFR Deep vein thrombosis (~1992) Depression (2009) Dyslipidemia Eczema (~2017) Encounter for routine gynecological examination (05/16/21) Encounter for wellness examination in adult (05/16/21) Essential hypertension Hip pain History of non-Hodgkin's lymphoma (1994) History of suicide attempt (2009) HSV-2 seropositive Intermittent palpitations (07/2021) Intra-ventricular conduction delay (08/2021) Lymphedema Lymphoma (~1995) Menopause (~1995) Mixed hyperlipidemia (06/2020) Obstructive sleep apnea (adult) (pediatric) Possible exposure to STD PTSD (post-traumatic stress disorder) (~1996) Scoliosis (~1971) Snoring (2016) Thyroid nodule incidentally noted on imaging study (10/2021) Vision changes (08/2020) Surgical History Anesthesia History of biopsy (~1993) History of laparoscopy (~1992) Family History Father History of heart disease Mental health problem Stroke Sister Mental health problem Grandmother Ovarian cancer Grandfather History of heart disease Stroke Grandmother Breast cancer Dementia Family/Other Mental health problem Social History household members: none Smoking Status: Never smoker second hand exposure: No alcohol intake: never substance use type: does not use Smoking Status: Never smoker Substance Use Type: does not use Exam Initial Vital Signs Initial Vital Signs: Vital Signs Temperature 97.8 F 05/30/23 00:18 Pulse Rate 84 05/30/23 00:18 Respiratory Rate 18 05/30/23 00:18 Blood Pressure 113/72 05/30/23 00:18 Pulse Oximetry 98 05/30/23 00:18 Oxygen Delivery Method Room Air 05/30/23 00:18 GENERAL: Well-appearing, well-nourished and in no acute distress. CARDIOVASCULAR: peripheral pulses in tact, cap refill <2 sec RESPIRATORY: No respiratory distress, speaks in full sentences without difficulty EXTREMITIES: Normal range of motion, no clubbing or edema. Neurovascularly intact NEUROLOGICAL: Cranial nerves II through XII grossly intact. Normal gait and spe ech. SKIN: Right lateral thigh bite robert multiple other scratches noted right lower extremity Course Orders Ordered: Discontinued Medications Diphtheria/Tetanus/Acell Pertussis (Tet,Diph,Pertuss(Acell),Vac/Pf 0.5 Ml Syringe) 0.5 ml IM .ONCE ONE Stop: 05/30/23 02:12 Last Admin: 05/30/23 02:29 Dose: 0.5 ml Documented By: ADIN Rabies Immune Globulin (Rabies Immune Globulin 300 Unit/Ml 1ml Vial) 1,800 unit 20 unit/kg (1814 unit) IM NOW ONE Stop: 05/30/23 03:01 Last Admin: 05/30/23 03:47 Dose: 1,800 unit Documented By: ADIN Rabies Vaccine (Rabies Vaccine (Rabavert) 2.5 Units Syringe) 2.5 units IM .ONCE ONE Stop: 05/30/23 02:12 Last Admin: 05/30/23 03:28 Dose: 2.5 units Documented By: ADIN Vital Signs Vital signs: Vital Signs - 8 hr 05/30/23 00:18 05/30/23 04:05 Temperature 97.8 F Pulse Rate 84 72 Respiratory Rate 18 16 Blood Pressure 113/72 131/75 Pulse Oximetry 98 99 Oxygen Delivery Method Room Air Room Air MDM - Animal Bite MDM Narrative Medical decision making narrative: Patient 43-year-old female after being attacked by a raccoon. He is given the rabies immunoglobulin, rabies vaccine and a tetanus vaccine. She will need to return for for their rabies vaccinations. Pain control and supportive care only at this time. She understands that she must return for further rabies vaccines. Discharge Plan Departure Patient Disposition: Home Clinical Impression: Bitten by raccoon, initial encounter Instructions: Rabies, DI for Animal Bites, DI for Rabies Vaccine Activity Restrictions/Additional Instructions: *You have been diagnosed with raccoon bite, rabies exposure *What to do: You will need to return to the ED for further rabies vaccinations on June 02, June 06 and June 13 *Continue to take medications as directed Take Tylenol and Motrin as directed if needed for pain *Follow up with your primary care provider in 2-3 days or call [phone] *Return to ER if you should have increasing pain swelling redness fever or any new, worsening or concerning symptoms Prescriptions: No Action Disabled Parking Permit See Rx Instructions .ROUTE .COMPLEX Qty: 1 0RF Rx Instructions: I find this patient to be medically disabled and qualify for disabled parking as indicated and signed on the accompanying disabled parking application for individuals. Shingrix (PF) 50 mcg/0.5 mL suspension for reconstitution 0.5 ml IM ONCE Qty: 1 1RF Rx Instructions: 0.5 mL administered as a 2-dose series at 0 and 2 to 6 months. lisinopril-hydrochlorothiazide 10-12.5 mg tablet 1 tab PO DAILY Qty: 90 0RF duloxetine 30 mg capsule,delayed release(DR/EC) 90 mg PO DAILY Qty: 270 2RF oxycodone 10 mg tablet 10 mg PO TID Patient Comments: AM and 1400 magnesium oxide 400 mg magnesium tablet 400 mg PO DAILY rosuvastatin 10 mg tablet 10 mg PO DAILY Qty: 90 3RF aripiprazole 5 mg tablet See Rx Instructions .ROUTE .COMPLEX Qty: 90 2RF Dose Instruction: take 1 tablet by mouth once daily Rx Instructions: take 1 tablet by mouth once daily levothyroxine 25 mcg tablet 25 mcg PO DAILY Qty: 90 2RF trazodone 50 mg tablet See Rx Instructions .ROUTE .COMPLEX Qty: 270 2RF Dose Instruction: take 3 tablets by mouth at bedtime Rx Instructions: take 3 tablets by mouth at bedtime ferrous sulfate [Sly-Time] 325 mg (65 mg iron) tablet 325 mg PO DAILY (DME) [facility] Airsense 10 0 .Route .MEDSUPPLY Referrals: Thomas Bernard ARNP [Primary Care Provider] - Stand Alone Forms: Patient Portal/API
[2023-05-30] MEDS: TET,DIPH,PERTUSS(ACELL),VAC/PF 0.5 ML SYRINGE IM (02:29)
[2023-05-30] MEDS: RABIES VACCINE (RABAVERT) 2.5 UNITS SYRINGE IM (03:28)
[2023-05-30] MEDS: RABIES IMMUNE GLOBULIN 300 UNIT/ML 1mL VIAL 1800 UNIT IM (03:47)
[2023-05-30 04:05] VITALS: BP 131/75; PULSE 72; RESP 16; O2SAT 99
== END 2023-05-30 04:11 | disposition home or self-care (01) ==
PROVIDERS: Emergency Provider Emergency Medicine; Family Provider Nurse Practitioner Family; PCP Registered Nurse Diabetes Educator
DX: S81.851A Open bite, right lower leg, initial encounter (principal); W55.51XA Bitten by raccoon, initial encounter; Z23 Encounter for immunization
CPT/HCPCS: 90375; 90471; 90675; 96372; 99283; 90715

== ENCOUNTER 2023-06-02 09:39 | Emergency (ER) | payer OTHER, MEDICAID, SELFPAY ==
[2023-06-02 09:40] VITALS: BP 114/67; PULSE 84; RESP 16; TEMP 36.7; O2SAT 99
[2023-06-02] MEDS: RABIES VACCINE (RABAVERT) 2.5 UNITS SYRINGE IM (09:52)
--- NOTE | 2023-06-02 10:03 | ED.RECABL ---
HPI - Recheck/Abnormal Lab/Rx General Chief Complaint: Recheck/Abnormal Lab/Rx Stated Complaint: Needs second round of rabies shot Time Seen by Provider: 06/02/23 09:50 Source: patient Mode of arrival: Ambulatory Limitations: no limitations History of Present Illness HPI narrative: This is a 53-year-old female with recent history being attacked by a large raccoon she had bites on her right knee and calf. Patient had been intervening between the raccoon her very small dog. Patient had her 1st vaccination on 05/30/2023, she is returning for her 2nd vaccination. She states no signs of infection things seemed to be healing well. She has not had any other changes or concerns. Plan is for patient return for adelina Baldwin for here to the emergency department. She is no other complaints or concerns at this time. Related Data Home Medications Medication Instructions Recorded Confirmed magnesium oxide 400 mg PO DAILY 12/19/21 04/23/23 oxycodone 10 mg tablet 10 mg PO TID 12/19/21 04/23/23 ferrous sulfate 325 mg (65 mg 325 mg PO DAILY 07/24/22 04/23/23 iron) tablet (Sly-Time) [facility] Airsense 10 10/10/22 04/02/23 Previous Rx's Medication Instructions Recorded Disabled Parking Permit See Rx Instructions .Route 10/10/20 .COMPLEX #1 unit varicella-zoster glycoE [id number]-AS01B 0.5 ml IM ONCE #1 ea 06/29/22 adj(PF) 50 mcg/0.5 mL IM susp, kit (Shingrix (PF)) rosuvastatin 10 mg tablet 10 mg PO DAILY #90 tabs 10/02/22 aripiprazole 5 mg tablet See Rx Instructions .Route 02/13/23 .COMPLEX #90 tabs levothyroxine 25 mcg tablet 25 mcg PO DAILY #90 tabs 02/13/23 trazodone 50 mg tablet See Rx Instructions .Route 02/13/23 .COMPLEX #270 tabs duloxetine 30 mg capsule,delayed 90 mg PO DAILY #270 caps 04/02/23 release lisinopril 10 1 tab PO DAILY #90 tabs 05/31/23 mg-hydrochlorothiazide 12.5 mg tablet Allergies Allergy/AdvReac Type Severity Reaction Status Date / Time ciprofloxacin [From Cipro] Allergy Severe Sneezing Verified 06/02/23 09:48 diphenhydramine Allergy Severe suicidal Verified 06/02/23 09:48 [From Benadryl] iodine Allergy Severe Sneezing Verified 06/02/23 09:48 latex Allergy Severe sore Verified 06/02/23 09:48 Review of Systems Review of Systems ROS Unobtainable: All systems reviewed & are unremarkable except as noted in HPI and below Patient History Medical History Acquired autoimmune hypothyroidism (2017) Allergies Amaurosis fugax, both eyes (08/2020) Anemia Anxiety (~1999) Autism Cataracts, bilateral (~1998) Chronic back pain (~2009) Decreased GFR Deep vein thrombosis (~1992) Depression (2009) Dyslipidemia Eczema (~2017) Encounter for routine gynecological examination (05/16/21) Encounter for wellness examination in adult (05/16/21) Essential hypertension Hip pain History of non-Hodgkin's lymphoma (1994) History of suicide attempt (2009) HSV-2 seropositive Intermittent palpitations (07/2021) Intra-ventricular conduction delay (08/2021) Lymphedema Lymphoma (~1995) Menopause (~1995) Mixed hyperlipidemia (06/2020) Obstructive sleep apnea (adult) (pediatric) Possible exposure to STD PTSD (post-traumatic stress disorder) (~1996) Scoliosis (~1971) Snoring (2016) Thyroid nodule incidentally noted on imaging study (10/2021) Vision changes (08/2020) Surgical History Anesthesia History of biopsy (~1993) History of laparoscopy (~1992) Family History Father History of heart disease Mental health problem Stroke Sister Mental health problem Grandmother Ovarian cancer Grandfather History of heart disease Stroke Grandmother Breast cancer Dementia Family/Other Mental health problem Social History household members: none Smoking Status: Never smoker second hand exposure: No alcohol intake: never substance use type: does not use Smoking Status: Never smoker Substance Use Type: does not use Exam Narrative Exam Narrative: GENERAL: Alert and oriented x three, well-appearing female in no acute distress. HEENT: Head normocephalic, atraumatic, EOMI, pupils reactive, face symmetric, moist mucous membranes NECK: Supple, full range of motion CARDIOVASCULAR: Regular rate and rhythm without murmurs, rubs or gallops. RESPIRATORY: Breath sounds equal bilaterally, no wheezes rales or rhonchi. ABDOMEN: Soft, nontender. Normoactive bowel sounds all 4 quadrants. No guarding or rebound, rigidity, no mass EXTREMITIES: Normal range of motion, no clubbing or edema. Neurovascularly intact. Patient has 2 puncture wounds and a scratch in what appears to be the shape of a smiley face on her right lateral knee as well as puncture wounds on her right calf. They are clean dry and intact without any warmth, erythema or signs of infection. NEUROLOGICAL: Cranial nerves II through XII grossly intact. Moving all extremities. Normal gait. SKIN: Warm, dry, no petechiae, no rashes or lesions. Initial Vital Signs Initial Vital Signs: Vital Signs Temperature 98.1 F 06/02/23 09:40 Pulse Rate 84 06/02/23 09:40 Respiratory Rate 16 06/02/23 09:40 Blood Pressure 114/67 06/02/23 09:40 Pulse Oximetry 99 06/02/23 09:40 Oxygen Delivery Method Room Air 06/02/23 09:40 Course Orders Ordered: Discontinued Medications Rabies Vaccine (Rabies Vaccine (Rabavert) 2.5 Units Syringe) 2.5 units IM .ONCE ONE Stop: 06/02/23 09:42 Last Admin: 06/02/23 09:52 Dose: 2.5 units Documented By: RANDALL Vital Signs Vital signs: Vital Signs - 8 hr 06/02/23 09:40 Temperature 98.1 F Pulse Rate 84 Respiratory Rate 16 Blood Pressure 114/67 Pulse Oximetry 99 Oxygen Delivery Method Room Air MDM - Recheck/Abnormal Lab/Rx MDM Narrative Medical decision making narrative: This is a 53-year-old female presents for repeat administration of rabies vaccine this is vaccine 2 of 4. Patient is to return for vaccines 3 and 4 subsequent dates. Injuries appear to be healing well she is no other issues or concerns or complaints at this time. Discharge Plan Departure Patient Disposition: Home Clinical Impression: Encounter for repeat administration of rabies vaccination Instructions: DI for Rabies Vaccine Activity Restrictions/Additional Instructions: *What to do:? You will need to return to the ED for further rabies vaccinations on June 06 and June 13 Continue to take medications as directed Take Tylenol and Motrin as directed if needed for pain Return to ER if you should have increasing pain swelling redness fever or any new, worsening or concerning symptoms Prescriptions: No Action Disabled Parking Permit See Rx Instructions .ROUTE .COMPLEX Qty: 1 0RF Rx Instructions: I find this patient to be medically disabled and qualify for disabled parking as indicated and signed on the accompanying disabled parking application for individuals. Shingrix (PF) 50 mcg/0.5 mL suspension for reconstitution 0.5 ml IM ONCE Qty: 1 1RF Rx Instructions: 0.5 mL administered as a 2-dose series at 0 and 2 to 6 months. duloxetine 30 mg capsule,delayed release(DR/EC) 90 mg PO DAILY Qty: 270 2RF lisinopril-hydrochlorothiazide 10-12.5 mg tablet 1 tab PO DAILY Qty: 90 3RF oxycodone 10 mg tablet 10 mg PO TID Patient Comments: AM and 1400 magnesium oxide 400 mg magnesium tablet 400 mg PO DAILY rosuvastatin 10 mg tablet 10 mg PO DAILY Qty: 90 3RF aripiprazole 5 mg tablet See Rx Instructions .ROUTE .COMPLEX Qty: 90 2RF Dose Instruction: take 1 tablet by mouth once daily Rx Instructions: take 1 tablet by mouth once daily levothyroxine 25 mcg tablet 25 mcg PO DAILY Qty: 90 2RF trazodone 50 mg tablet See Rx Instructions .ROUTE .COMPLEX Qty: 270 2RF Dose Instruction: take 3 tablets by mouth at bedtime Rx Instructions: take 3 tablets by mouth at bedtime ferrous sulfate [Sly-Time] 325 mg (65 mg iron) tablet 325 mg PO DAILY (DME) [facility] 10 0 .Route .MEDSUPPLY Referrals: Thomas Bernard ARNP [Primary Care Provider] - Stand Alone Forms: Patient Portal/API
== END 2023-06-02 10:20 | disposition home or self-care (01) ==
PROVIDERS: Emergency Provider Emergency Medicine; Family Provider Nurse Practitioner Family; PCP Registered Nurse Diabetes Educator
DX: Z23 Encounter for immunization (principal); S81.851D Open bite, right lower leg, subsequent encounter; W55.51XD Bitten by raccoon, subsequent encounter
CPT/HCPCS: 90471; 90675; 99283

== ENCOUNTER 2023-06-05 09:20 | Emergency (ER) | payer OTHER, MEDICAID, SELFPAY ==
[2023-06-05 09:22] VITALS: BP 111/59; PULSE 76; RESP 15; TEMP 36.3; O2SAT 96; BMI 33.3
--- NOTE | 2023-06-05 09:27 | ED.RECABL ---
HPI - Recheck/Abnormal Lab/Rx General Chief Complaint: Recheck/Abnormal Lab/Rx Stated Complaint: rabies shot Time Seen by Provider: 06/05/23 09:27 Source: patient Mode of arrival: Ambulatory History of Present Illness HPI narrative: This is a 53-year-old female with history being attacked by nolan hartmannon with bites on her right knee and calf. Patient states they have been healing well she is presenting for her 3rd rabies vaccination. No other concerns or issues today. Related Data Home Medications Medication Instructions Recorded Confirmed magnesium oxide 400 mg PO DAILY 12/19/21 04/23/23 oxycodone 10 mg tablet 10 mg PO TID 12/19/21 04/23/23 ferrous sulfate 325 mg (65 mg 325 mg PO DAILY 07/24/22 04/23/23 iron) tablet (Sly-Time) [facility]Med Airsense 10 10/10/22 04/02/23 Previous Rx's Medication Instructions Recorded Disabled Parking Permit See Rx Instructions .Route 10/10/20 .COMPLEX #1 unit varicella-zoster glycoE [id number] 0.5 ml IM ONCE #1 ea 06/29/22 adj(PF) 50 mcg/0.5 mL IM susp, kit (Shingrix (PF)) rosuvastatin 10 mg tablet 10 mg PO DAILY #90 tabs 10/02/22 aripiprazole 5 mg tablet See Rx Instructions .Route 02/13/23 .COMPLEX #90 tabs levothyroxine 25 mcg tablet 25 mcg PO DAILY #90 tabs 02/13/23 trazodone 50 mg tablet See Rx Instructions .Route 02/13/23 .COMPLEX #270 tabs duloxetine 30 mg capsule,delayed 90 mg PO DAILY #270 caps 04/02/23 release lisinopril 10 1 tab PO DAILY #90 tabs 05/31/23 mg-hydrochlorothiazide 12.5 mg tablet Allergies Allergy/AdvReac Type Severity Reaction Status Date / Time ciprofloxacin [From Cipro] Allergy Severe Sneezing Verified 06/05/23 09:22 diphenhydramine Allergy Severe suicidal Verified 06/05/23 09:22 [From Benadryl] iodine Allergy Severe Sneezing Verified 06/05/23 09:22 latex Allergy Severe sore Verified 06/05/23 09:22 Review of Systems Review of Systems ROS Unobtainable: All systems reviewed & are unremarkable except as noted in HPI and below Patient History Medical History Acquired autoimmune hypothyroidism (2017) Allergies Amaurosis fugax, both eyes (08/2020) Anemia Anxiety (~1999) Autism Cataracts, bilateral (~1998) Chronic back pain (~2009) Decreased GFR Deep vein thrombosis (~1992) Depression (2009) Dyslipidemia Eczema (~2017) Encounter for routine gynecological examination (05/16/21) Encounter for wellness examination in adult (05/16/21) Essential hypertension Hip pain History of non-Hodgkin's lymphoma (1994) History of suicide attempt (2009) HSV-2 seropositive Intermittent palpitations (07/2021) Intra-ventricular conduction delay (08/2021) Lymphedema Lymphoma (~1995) Menopause (~1995) Mixed hyperlipidemia (06/2020) Obstructive sleep apnea (adult) (pediatric) Possible exposure to STD PTSD (post-traumatic stress disorder) (~1996) Scoliosis (~1971) Snoring (2016) Thyroid nodule incidentally noted on imaging study (10/2021) Vision changes (08/2020) Surgical History Anesthesia History of biopsy (~1993) History of laparoscopy (~1992) Family History Father History of heart disease Mental health problem Stroke Sister Mental health problem Grandmother Ovarian cancer Grandfather History of heart disease Stroke Grandmother Breast cancer Dementia Family/Other Mental health problem Social History household members: none Smoking Status: Never smoker second hand exposure: No alcohol intake: never substance use type: does not use Smoking Status: Never smoker alcohol intake frequency: holidays/special occasions only Substance Use Type: does not use Exam Narrative Exam Narrative: GENERAL: Alert and oriented x three, well-appearing female in no acute distress. HEENT: Head normocephalic, atraumatic, EOMI, pupils reactive, face symmetric, moist mucous membranes NECK: Supple, full range of motion CARDIOVASCULAR: Regular rate and rhythm without murmurs, rubs or gallops. RESPIRATORY: Breath sounds equal bilaterally, no wheezes rales or rhonchi. EXTREMITIES: Normal range of motion, no clubbing or edema. Neurovascularly intact NEUROLOGICAL: Cranial nerves II through XII grossly intact. Moving all extremities SKIN: Warm, dry, no petechiae, no rashes or lesions. Initial Vital Signs Initial Vital Signs: Vital Signs Temperature 97.3 F L 06/05/23 09:22 Pulse Rate 76 06/05/23 09:22 Respiratory Rate 15 06/05/23 09:22 Blood Pressure 111/59 L 06/05/23 09:22 Pulse Oximetry 96 06/05/23 09:22 Oxygen Delivery Method Room Air 06/05/23 09:22 Course Orders Ordered: Discontinued Medications Rabies Vaccine (Rabies Vaccine (Rabavert) 2.5 Units Syringe) 2.5 units IM .ONCE ONE Stop: 06/05/23 09:28 Last Admin: 06/05/23 09:39 Dose: 2.5 units Documented By: RANDALL Vital Signs Vital signs: Vital Signs - 8 hr 06/05/23 09:22 Temperature 97.3 F L Pulse Rate 76 Respiratory Rate 15 Blood Pressure 111/59 L Pulse Oximetry 96 Oxygen Delivery Method Room Air MDM - Recheck/Abnormal Lab/Rx MDM Narrative Medical decision making narrative: 53-year-old female presents with need for 3rd rabies vaccination. No issues wounds have been healing well no other concerns today. Discharge Plan Departure Patient Disposition: Home Clinical Impression: Encounter for repeat administration of rabies vaccination Activity Restrictions/Additional Instructions: *What to do:? You will need to return to the ED for your last rabies vaccinations on June 13 Continue to take medications as directed Take Tylenol and Motrin as directed if needed for pain Return to ER if you should have increasing pain swelling redness fever or any new, worsening or concerning symptoms Prescriptions: No Action Disabled Parking Permit See Rx Instructions .ROUTE .COMPLEX Qty: 1 0RF Rx Instructions: I find this patient to be medically disabled and qualify for disabled parking as indicated and signed on the accompanying disabled parking application for individuals. Shingrix (PF) 50 mcg/0.5 mL suspension for reconstitution 0.5 ml IM ONCE Qty: 1 1RF Rx Instructions: 0.5 mL administered as a 2-dose series at 0 and 2 to 6 months. duloxetine 30 mg capsule,delayed release(DR/EC) 90 mg PO DAILY Qty: 270 2RF lisinopril-hydrochlorothiazide 10-12.5 mg tablet 1 tab PO DAILY Qty: 90 3RF oxycodone 10 mg tablet 10 mg PO TID Patient Comments: AM and 1400 magnesium oxide 400 mg magnesium tablet 400 mg PO DAILY rosuvastatin 10 mg tablet 10 mg PO DAILY Qty: 90 3RF aripiprazole 5 mg tablet See Rx Instructions .ROUTE .COMPLEX Qty: 90 2RF Dose Instruction: take 1 tablet by mouth once daily Rx Instructions: take 1 tablet by mouth once daily levothyroxine 25 mcg tablet 25 mcg PO DAILY Qty: 90 2RF trazodone 50 mg tablet See Rx Instructions .ROUTE .COMPLEX Qty: 270 2RF Dose Instruction: take 3 tablets by mouth at bedtime Rx Instructions: take 3 tablets by mouth at bedtime ferrous sulfate [Sly-Time] 325 mg (65 mg iron) tablet 325 mg PO DAILY (DME) ResMed Airsense 10 0 .Route .MEDSUPPLY Referrals: Thomas Bernard ARNP [Primary Care Provider] - Stand Alone Forms: Patient Portal/API
[2023-06-05] MEDS: RABIES VACCINE (RABAVERT) 2.5 UNITS SYRINGE IM (09:39)
[2023-06-05 10:00] VITALS: BP 100/55; PULSE 72; O2SAT 97
== END 2023-06-05 10:00 | disposition home or self-care (01) ==
PROVIDERS: Emergency Provider Emergency Medicine; Family Provider Nurse Practitioner Family; PCP Registered Nurse Diabetes Educator
DX: Z23 Encounter for immunization (principal); S80.2 Other superficial injuries of knee; W55.51XD Bitten by raccoon, subsequent encounter
CPT/HCPCS: 90471; 90675; 99283

== ENCOUNTER 2023-06-13 07:50 | Emergency (ER) | payer OTHER, MEDICAID, SELFPAY ==
[2023-06-13 07:54] VITALS: BP 131/67; PULSE 73; RESP 18; O2SAT 99; BMI 33.4
--- NOTE | 2023-06-13 07:56 | ED.GENADULT ---
HPI - General Adult General Chief complaint: Recheck/Abnormal Lab/Rx Stated complaint: here for last rabies shot Time Seen by Provider: 06/13/23 07:55 Source: patient Mode of arrival: Ambulatory History of Present Illness HPI narrative: 53-year-old woman presents for final rabies vaccine. On May 30 she was attacked by a large raccoon. On the she was given rabies immune globulin, vaccine and tetanus. She presented on the and for follow-up vaccines. Today is her final dose. Related Data Home Medications Medication Instructions Recorded Confirmed magnesium oxide 400 mg PO DAILY 12/19/21 04/23/23 oxycodone 10 mg tablet 10 mg PO TID 12/19/21 04/23/23 ferrous sulfate 325 mg (65 mg 325 mg PO DAILY 07/24/22 04/23/23 iron) tablet (Sly-Time) ResMed Airsense 10 10/10/22 04/02/23 Previous Rx's Medication Instructions Recorded Disabled Parking Permit See Rx Instructions .Route 10/10/20 .COMPLEX #1 unit varicella-zoster glycoE [id number] 0.5 ml IM ONCE #1 ea 06/29/22 adj(PF) 50 mcg/0.5 mL IM susp, kit (Shingrix (PF)) rosuvastatin 10 mg tablet 10 mg PO DAILY #90 tabs 10/02/22 aripiprazole 5 mg tablet See Rx Instructions .Route 02/13/23 .COMPLEX #90 tabs levothyroxine 25 mcg tablet 25 mcg PO DAILY #90 tabs 02/13/23 trazodone 50 mg tablet See Rx Instructions .Route 02/13/23 .COMPLEX #270 tabs duloxetine 30 mg capsule,delayed 90 mg PO DAILY #270 caps 04/02/23 release lisinopril 10 1 tab PO DAILY #90 tabs 05/31/23 mg-hydrochlorothiazide 12.5 mg tablet Allergies Allergy/AdvReac Type Severity Reaction Status Date / Time ciprofloxacin [From Cipro] Allergy Severe Sneezing Verified 06/13/23 07:56 diphenhydramine Allergy Severe suicidal Verified 06/13/23 07:56 [From Benadryl] iodine Allergy Severe Sneezing Verified 06/13/23 07:56 latex Allergy Severe sore Verified 06/13/23 07:56 Patient History Medical History Acquired autoimmune hypothyroidism (2017) Allergies Amaurosis fugax, both eyes (08/2020) Anemia Anxiety (~1999) Autism Cataracts, bilateral (~1998) Chronic back pain (~2009) Decreased GFR Deep vein thrombosis (~1992) Depression (2009) Dyslipidemia Eczema (~2017) Encounter for routine gynecological examination (05/16/21) Encounter for wellness examination in adult (05/16/21) Essential hypertension Hip pain History of non-Hodgkin's lymphoma (1994) History of suicide attempt (2009) HSV-2 seropositive Intermittent palpitations (07/2021) Intra-ventricular conduction delay (08/2021) Lymphedema Lymphoma (~1995) Menopause (~1995) Mixed hyperlipidemia (06/2020) Obstructive sleep apnea (adult) (pediatric) Possible exposure to STD PTSD (post-traumatic stress disorder) (~1996) Scoliosis (~1971) Snoring (2016) Thyroid nodule incidentally noted on imaging study (10/2021) Vision changes (08/2020) Surgical History Anesthesia History of biopsy (~1993) History of laparoscopy (~1992) Family History Father History of heart disease Mental health problem Stroke Sister Mental health problem Grandmother Ovarian cancer Grandfather History of heart disease Stroke Grandmother Breast cancer Dementia Family/Other Mental health problem Social History household members: none Smoking Status: Never smoker second hand exposure: No alcohol intake: never substance use type: does not use Smoking Status: Never smoker alcohol intake frequency: holidays/special occasions only Substance Use Type: does not use Exam Initial Vital Signs Initial Vital Signs: Vital Signs Pulse Rate 73 06/13/23 07:54 Respiratory Rate 18 06/13/23 07:54 Blood Pressure 131/67 06/13/23 07:54 Pulse Oximetry 99 06/13/23 07:54 Oxygen Delivery Method Room Air 06/13/23 07:54 Course Orders Ordered: Discontinued Medications Rabies Vaccine (Rabies Vaccine (Rabavert) 2.5 Units Syringe) 2.5 units IM .ONCE ONE Stop: 06/13/23 07:54 Vital Signs Vital signs: Vital Signs - 8 hr 06/13/23 07:54 Pulse Rate 73 Respiratory Rate 18 Blood Pressure 131/67 Pulse Oximetry 99 Oxygen Delivery Method Room Air Medical Decision Making MDM Narrative Medical decision making narrative: CC: Presents for final read rabies vaccine. Acute uncertain prognosis Data collected from: patient, Medical records reviewed: Initial ER record and prior presentations for vaccination reviewed Exam documented above, pertinent findings include: The bite wound on the lateral right thigh seems to be healing nicely. She is had no complications with any of her prior injections Treatments: Final Rabies vaccine number 4 given today Discussion: 53-year-old woman bit by a raccoon. Has completed full course of rabies exposure immunoglobulin tetanus and vaccine. Discharge Plan Departure Patient Disposition: Home Clinical Impression: Need for post exposure prophylaxis for rabies Instructions: DI for Rabies Vaccine Activity Restrictions/Additional Instructions: Congratulations on completing your complete course of vaccinations, immunoglobulin administration and tetanus shot. If you find that you are getting worse or develop any new symptoms, please feel free to return to the emergency department for further evaluation. Prescriptions: No Action Disabled Parking Permit See Rx Instructions .ROUTE .COMPLEX Qty: 1 0RF Rx Instructions: I find this patient to be medically disabled and qualify for disabled parking as indicated and signed on the accompanying disabled parking application for individuals. Shingrix (PF) 50 mcg/0.5 mL suspension for reconstitution 0.5 ml IM ONCE Qty: 1 1RF Rx Instructions: 0.5 mL administered as a 2-dose series at 0 and 2 to 6 months. duloxetine 30 mg capsule,delayed release(DR/EC) 90 mg PO DAILY Qty: 270 2RF lisinopril-hydrochlorothiazide 10-12.5 mg tablet 1 tab PO DAILY Qty: 90 3RF oxycodone 10 mg tablet 10 mg PO TID Patient Comments: AM and 1400 magnesium oxide 400 mg magnesium tablet 400 mg PO DAILY rosuvastatin 10 mg tablet 10 mg PO DAILY Qty: 90 3RF aripiprazole 5 mg tablet See Rx Instructions .ROUTE .COMPLEX Qty: 90 2RF Dose Instruction: take 1 tablet by mouth once daily Rx Instructions: take 1 tablet by mouth once daily levothyroxine 25 mcg tablet 25 mcg PO DAILY Qty: 90 2RF trazodone 50 mg tablet See Rx Instructions .ROUTE .COMPLEX Qty: 270 2RF Dose Instruction: take 3 tablets by mouth at bedtime Rx Instructions: take 3 tablets by mouth at bedtime ferrous sulfate [Sly-Time] 325 mg (65 mg iron) tablet 325 mg PO DAILY (DME) ResMed Airsense 10 0 .Route .MEDSUPPLY Referrals: Thomas Bernard ARNP [Primary Care Provider] - Stand Alone Forms: Patient Portal/API
[2023-06-13] MEDS: RABIES VACCINE (RABAVERT) 2.5 UNITS SYRINGE IM (08:00)
[2023-06-13 08:32] VITALS: BP 102/64; PULSE 64; RESP 18; O2SAT 96
== END 2023-06-13 08:33 | disposition home or self-care (01) ==
PROVIDERS: Emergency Provider Emergency Medicine; Family Provider Nurse Practitioner Family; PCP Registered Nurse Diabetes Educator
DX: Z20.3 Contact with and (suspected) exposure to rabies (principal); Z23 Encounter for immunization
CPT/HCPCS: 90471; 90675; 99283

== ENCOUNTER → 2023-07-12 14:29 | Outpatient (CLI) | payer OTHER, MEDICAID, SELFPAY ==
--- NOTE | 2023-07-12 | DI.MG.S_ITS ---
BILATERAL DIGITAL SCREENING MAMMOGRAM 3D/2D WITH CAD: 07/12/2023 CLINICAL: Routine screening. Family history of breast cancer. Comparison is made to exams dated: 06/21/2022 mammogram, 06/01/2021 mammogram - [facility], and 06/11/2019 mammogram - [facility]. Both breasts are almost entirely fatty (category a/<25% glandular tissue). Current study was also evaluated with a Computer Aided Detection (CAD) system. There are benign calcifications in the left breast. No significant masses, calcifications, or other findings are seen in either breast. There has been no significant interval change. IMPRESSION: BENIGN There is no mammographic evidence of malignancy. A 1 year screening mammogram is recommended. Based on the Tyrer Cuzick model (a risk assessment model) the patient's lifetime risk is 3.7% and her 10 year risk is 1.0%. According to the ACR, ACS, and NCCN guidelines, an annual breast MRI exam along with mammogram is recommended if the patient's lifetime risk is 20% or greater. This exam was interpreted at Station ID: [id number]. NOTE: For mammograms, a report in lay terms will be sent to the patient. Approximately 15% of breast malignancies will not be visualized mammographically. In the management of a palpable breast mass, a negative mammogram must not discourage biopsy of a clinically suspicious lesion. Electronically Signed By: Markus gill/carmen:07/12/2023 15:00:00 letter sent: Normal Exam ACR BI-RADS Category 2: Benign Finding(s) [id number]
== END ==
PROVIDERS: PCP Registered Nurse Diabetes Educator; Referring Provider Registered Nurse Diabetes Educator; Visit Provider Registered Nurse Diabetes Educator
DX: Z12.31 Encounter for screening mammogram for malignant neoplasm of breast (principal); Z80.3 Family history of malignant neoplasm of breast
CPT/HCPCS: 77063; 77067

== ENCOUNTER → 2023-08-26 07:16 | Outpatient (CLI) | payer OTHER, MEDICAID, SELFPAY ==
[2023-08-26 08:06] LABS: Hematocrit 35.8 % (36-46); Hemoglobin 11.9 g/dL (12.0-16.0); Mean Corpuscular HGB Conc 33.3 % (30-36); Mean Corpuscular Hemoglobin 29.2 PG (26-34); Mean Corpuscular Volume 87.8 fL (80-100); Platelet Count 272 X10^3/uL (150-400); Red Blood Cell Count 4.08 X10^6/uL (4.0-5.2); Red Cell Distribution Width 14.5 % (11.6-14.8); White Blood Cell Count 6.2 X10^3/uL (4.5-11.0)
[2023-08-26 08:43] LABS: Alanine Aminotransferase 32 IU/L (<35); Albumin Globulin Ratio 1.3 (1.0-2.8); Alkaline Phosphatase 75 U/L (38-126); Aspartate Aminotransferase 32 IU/L (14-36); BUN Creatinine Ratio 16.8 (6-22); Bilirubin Total 0.2 mg/dL (0.2-1.3); Blood Urea Nitrogen 18 mg/dL (7-17); Calcium 9.9 mg/dL (8.4-10.2); Carbon Dioxide 32 mmol/L (22-32); Chloride 101 mmol/L (98-107); Cholesterol 147 mg/dL (140-199); Estimated Glomerular Filt Rate > 60 mL/min (>60); Glucose 101 mg/dL (70-100); HDL Cholesterol 47 mg/dL (40-60); HEMOLYSIS < 15 (0-50); LDL Cholesterol Calculated 74 mg/dL (<100); Sodium 139 mmol/L (137-145); Triglycerides 129 mg/dL (35-150)
[2023-08-26 09:13] LABS: TSH w/ Reflex to FT4 6.99 uIU/mL (0.47-4.68)
[2023-08-26 09:42] LABS: Free T4, Direct Thyroxine 1.04 ng/dL (0.78-2.19)
== END ==
PROVIDERS: PCP Registered Nurse Diabetes Educator; Referring Provider Registered Nurse Diabetes Educator; Visit Provider Registered Nurse Diabetes Educator
DX: E06.3 Autoimmune thyroiditis (principal); E78.5 Hyperlipidemia, unspecified; Z51.81 Encounter for therapeutic drug level monitoring
CPT/HCPCS: 36415; 80053; 80061; 84439; 84443; 85027

== ENCOUNTER → 2023-10-14 07:53 | Outpatient (CLI) | payer OTHER, MEDICAID, SELFPAY ==
[2023-10-14 09:57] LABS: BUN Creatinine Ratio 22.1 (6-22); Blood Urea Nitrogen 21 mg/dL (7-17); Calcium 9.8 mg/dL (8.4-10.2); Carbon Dioxide 31 mmol/L (22-32); Chloride 103 mmol/L (98-107); Estimated Glomerular Filt Rate > 60 mL/min (>60); Glucose 90 mg/dL (70-100); HEMOLYSIS < 15 (0-50); Sodium 139 mmol/L (137-145)
[2023-10-14 10:20] LABS: TSH w/ Reflex to FT4 1.61 uIU/mL (0.47-4.68)
== END ==
PROVIDERS: PCP Registered Nurse Diabetes Educator; Referring Provider Registered Nurse Diabetes Educator; Visit Provider Registered Nurse Diabetes Educator
DX: E06.3 Autoimmune thyroiditis (principal); R94.4 Abnormal results of kidney function studies
CPT/HCPCS: 36415; 80048; 84443

== ENCOUNTER → 2024-08-25 08:33 | Outpatient (CLI) | payer OTHER, MEDICAID, SELFPAY ==
[2024-08-25 09:39] LABS: Hematocrit 36.3 % (36-46); Hemoglobin 12.2 g/dL (12.0-16.0); Mean Corpuscular HGB Conc 33.6 % (30-36); Mean Corpuscular Hemoglobin 29.8 PG (26-34); Mean Corpuscular Volume 88.6 fL (80-100); Platelet Count 261 X10^3/uL (150-400); Red Blood Cell Count 4.09 X10^6/uL (4.0-5.2); Red Cell Distribution Width 14.2 % (11.6-14.8); White Blood Cell Count 5.2 X10^3/uL (4.5-11.0)
[2024-08-25 10:24] LABS: Alanine Aminotransferase 20 IU/L (<35); Albumin 3.9 g/dL (3.5-5.0); Albumin Globulin Ratio 1.5 (1.0-2.8); Alkaline Phosphatase 72 U/L (38-126); Aspartate Aminotransferase 31 IU/L (14-36); Bilirubin Total 0.4 mg/dL (0.2-1.3); Blood Urea Nitrogen 24 mg/dL (7-17); Calcium 9.9 mg/dL (8.4-10.2); Carbon Dioxide 32 mmol/L (22-32); Chloride 100 mmol/L (98-107); Cholesterol 134 mg/dL (140-199); Estimated Glomerular Filt Rate > 60 mL/min (>60); Globulin 2.6 g/dL (1.7-4.1); Glucose 99 mg/dL (70-100); HDL Cholesterol 49 mg/dL (40-60); HEMOLYSIS < 15 (0-50); LDL Cholesterol Calculated 70 mg/dL (<100); Potassium 4.2 mmol/L (3.4-5.1); Sodium 136 mmol/L (137-145); Total Protein 6.5 g/dL (6.3-8.2); Triglycerides 73 mg/dL (35-150)
[2024-08-25 10:52] LABS: TSH w/ Reflex to FT4 0.07 uIU/mL (0.47-4.68)
[2024-08-25 11:34] LABS: Free T4, Direct Thyroxine 1.31 ng/dL (0.78-2.19)
== END ==
PROVIDERS: PCP Registered Nurse Diabetes Educator; Referring Provider Registered Nurse Diabetes Educator; Visit Provider Registered Nurse Diabetes Educator
DX: E78.5 Hyperlipidemia, unspecified (principal); I10 Essential (primary) hypertension; D64.9 Anemia, unspecified
CPT/HCPCS: 36415; 80053; 80061; 84439; 84443; 85027

== ENCOUNTER → 2024-09-09 14:35 | Outpatient (CLI) | payer OTHER, MEDICAID, SELFPAY ==
--- NOTE | 2024-09-09 14:37 | DI.MG.S_ITS ---
BILATERAL DIGITAL SCREENING MAMMOGRAM 3D/2D WITH CAD: 09/09/2024 CLINICAL: Routine screening. Family history of breast cancer. Comparison is made to exams dated: 07/12/2023 mammogram, 06/21/2022 mammogram, and 06/20/2021 mammogram - [facility]. The breasts are almost entirely fatty (category a/<25% glandular tissue). Current study was also evaluated with a Computer Aided Detection (CAD) system. There are benign calcifications in the left breast. There also is a biopsy clip in the right breast. No significant masses, calcifications, or other findings are seen in either breast. There has been no significant interval change. IMPRESSION: BENIGN There is no mammographic evidence of malignancy. A 1 year screening mammogram is recommended. Based on the Tyrer Cuzick model (a risk assessment model) the patient's lifetime risk is 3.7% and her 10 year risk is 1.1%. According to the ACR, ACS, and NCCN guidelines, an annual breast MRI exam along with mammogram is recommended if the patient's lifetime risk is 20% or greater. This exam was interpreted at Station ID: [id number]. NOTE: For mammograms, a report in lay terms will be sent to the patient. Approximately 15% of breast malignancies will not be visualized mammographically. In the management of a palpable breast mass, a negative mammogram must not discourage biopsy of a clinically suspicious lesion. Electronically Signed By: Yahir jc/carmen:09/09/2024 17:48:30 letter sent: Normal Exam ACR BI-RADS Category 2: Benign
== END ==
LOC: MAMMO 14:36
PROVIDERS: PCP Registered Nurse Diabetes Educator; Referring Provider Registered Nurse Diabetes Educator; Visit Provider Registered Nurse Diabetes Educator
DX: Z12.31 Encounter for screening mammogram for malignant neoplasm of breast (principal); Z80.3 Family history of malignant neoplasm of breast; R92.313 Mammographic fatty tissue density, bilateral breasts
CPT/HCPCS: 77063; 77067

== ENCOUNTER → 2024-10-12 10:32 | Outpatient (CLI) | payer OTHER, MEDICAID, SELFPAY ==
[2024-10-12 12:07] LABS: TSH w/ Reflex to FT4 0.18 uIU/mL (0.47-4.68)
[2024-10-12 13:47] LABS: Free T4, Direct Thyroxine 0.99 ng/dL (0.78-2.19)
== END ==
PROVIDERS: PCP Registered Nurse Diabetes Educator; Referring Provider Registered Nurse Diabetes Educator; Visit Provider Registered Nurse Diabetes Educator
DX: E06.3 Autoimmune thyroiditis (principal); F43.22 Adjustment disorder with anxiety; F32.1 Major depressive disorder, single episode, moderate; F84.0 Autistic disorder
CPT/HCPCS: 36415; 84439; 84443; 99214

== ENCOUNTER 2024-11-07 17:18 | Emergency (ER) | payer OTHER, MEDICAID, SELFPAY ==
[2024-11-07 17:40] VITALS: BP 117/77; PULSE 68; RESP 18; TEMP 36.9; O2SAT 99; BMI 26.2
--- NOTE | 2024-11-07 17:48 | DI.RAD.S_ITS ---
PROCEDURE: XR HUMERUS RT 2V INDICATIONS: direct impact, pain TECHNIQUE: 2 views of the humerus were acquired. COMPARISON: None. FINDINGS: Bones: No fractures or dislocations. No suspicious bony lesions. Soft tissues: No suspicious soft tissue calcifications. IMPRESSION: No acute bony abnormality. Dictated by: Kelsey Alvarez M.D. on 11/07/2024 at 17:10 Approved by: Kelsey Alvarez M.D. on 11/07/2024 at 17:11
--- NOTE | 2024-11-07 17:48 | DI.RAD.S_ITS ---
PROCEDURE: XR SHOULDER RT MIN 2V INDICATIONS: direct impact, pain TECHNIQUE: 3 views of the shoulder were acquired. COMPARISON: None. FINDINGS: Bones: There is a humeral head fracture which is nondisplaced. There is no dislocation. No suspicious bony lesions. Soft tissues: No suspicious soft tissue calcifications. IMPRESSION: Nondisplaced humeral head fracture. Dictated by: Kelsey Alvarez M.D. on 11/07/2024 at 17:11 Approved by: Kelsey Alvarez M.D. on 11/07/2024 at 17:14
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
[2024-11-07 20:00] VITALS: BP 127/76; PULSE 61; RESP 16; O2SAT 99
== END 2024-11-07 20:10 | disposition home or self-care (01) ==
PROVIDERS: Emergency Provider Emergency Medicine; PCP Registered Nurse Diabetes Educator
DX: S42.294A Other nondisplaced fracture of upper end of right humerus, initial encounter for closed fracture (principal); W01.0XXA Fall on same level from slipping, tripping and stumbling without subsequent striking against object, initial encounter; Y93.89 Activity, other specified
CPT/HCPCS: 73030; 73060; 99283

== ENCOUNTER → 2025-04-08 12:04 | Outpatient (CLI) | payer OTHER, MEDICAID, SELFPAY ==
[2025-04-08 17:29] LABS: TSH w/ Reflex to FT4 0.29 uIU/mL (0.47-4.68)
[2025-04-08 17:56] LABS: Free T4, Direct Thyroxine 1.03 ng/dL (0.78-2.19)
== END ==
PROVIDERS: PCP Registered Nurse Diabetes Educator; Referring Provider Registered Nurse Diabetes Educator; Visit Provider Registered Nurse Diabetes Educator
DX: E06.3 Autoimmune thyroiditis (principal)
CPT/HCPCS: 36415; 84439; 84443

== ENCOUNTER → 2025-05-25 09:20 | Outpatient (CLI) | payer OTHER, MEDICAID, SELFPAY ==
[2025-05-25 10:52] LABS: TSH w/ Reflex to FT4 0.34 uIU/mL (0.47-4.68)
[2025-05-25 11:36] LABS: Free T4, Direct Thyroxine 1.17 ng/dL (0.78-2.19)
== END ==
PROVIDERS: PCP Registered Nurse Diabetes Educator; Referring Provider Registered Nurse Diabetes Educator; Visit Provider Registered Nurse Diabetes Educator
DX: E06.3 Autoimmune thyroiditis (principal)
CPT/HCPCS: 36415; 84439; 84443

== ENCOUNTER → 2025-05-26 16:03 | Outpatient (CLI) | payer OTHER, MEDICAID, SELFPAY ==
[2025-05-26 17:02] LABS: Influenza A - CEPHEID Flu A NEGATIVE (NEGATIVE); Influenza B - CEPHEID Flu B NEGATIVE (NEGATIVE)
[2025-05-26 17:03] LABS: COVID-19 CEPHEID 4-PLEX PCR Negative (Negative)
== END ==
PROVIDERS: PCP Registered Nurse Diabetes Educator; Visit Provider Nurse Practitioner Family
DX: R05.1 Acute cough (principal)
CPT/HCPCS: 87070; 87637

== ENCOUNTER 2025-05-27 17:31 | Emergency (ER) | payer OTHER, MEDICAID, SELFPAY ==
[2025-05-27 17:38] VITALS: BP 101/67; PULSE 77; RESP 18; TEMP 36.2; O2SAT 97; BMI 29.1
--- NOTE | 2025-05-27 21:11 | ED.GENADULT ---
HPI - General Adult General Chief complaint: Eye Problems Stated complaint: Rt eye possible pink eye Time Seen by Provider: 05/27/25 21:10 Source: patient Mode of arrival: Ambulatory History of Present Illness HPI narrative: 55-year-old female with nasal congestion and some cough since yesterday, today with right eye discharge and matting, itchy sensation left eye without discharge or matting. Currently not taking any antibiotics. Interested in I medications. She happened to be in the department with family member who was being seen, then decided to be seen to get ophthalmic antibiotic medication. No local trauma to either eye recalled. Related Data Home Medications ?Medication ?Instructions ?Recorded ?Confirmed magnesium oxide 400 mg PO DAILY 12/19/21 05/26/25 ferrous sulfate 325 mg (65 mg 325 mg PO DAILY 07/24/22 05/26/25 iron) tablet (Sly-Time) [facility] 10 10/10/22 05/26/25 aspirin 81 mg tablet,delayed 81 mg PO DAILY 09/02/23 05/26/25 release biotin 2,500 mcg capsule 2,500 mcg PO DAILY 07/13/24 05/26/25 calcium carbonate (Calcium 500) 500 mg PO DAILY 07/13/24 05/26/25 cetirizine 10 mg tablet (Zyrtec) 10 mg PO DAILY PRN 07/13/24 05/26/25 oxycodone 10 mg tablet 10 mg PO .COMPLEX 11/16/24 05/26/25 Previous Rx's ?Medication ?Instructions ?Recorded Disabled Parking Permit See Rx Instructions .Route 10/10/20 .COMPLEX #1 unit aripiprazole 5 mg tablet See Rx Instructions .Route 09/01/24 .COMPLEX #90 tabs lisinopril 10 1 tab PO DAILY #90 tabs 09/01/24 mg-hydrochlorothiazide 12.5 mg tablet rosuvastatin 10 mg tablet 10 mg PO DAILY #90 tabs 09/01/24 duloxetine 30 mg capsule,delayed 90 mg (3 x 30 mg) PO DAILY #270 04/07/25 release caps trazodone 50 mg tablet See Rx Instructions .Route 04/12/25 .COMPLEX #270 tabs levothyroxine 13 mcg capsule 13 mcg PO DAILY #90 caps 04/14/25 hydroxyzine HCl 10 mg tablet 10 mg PO QID PRN anxiety #120 tabs 05/19/25 erythromycin 5 mg/gram (0.5 %) eye 1 applic EYE-BOTH TID eye 05/27/25 ointment infection 7 days #3.5 grams erythromycin 5 mg/gram (0.5 %) eye 1 applic EYE-LEFT TID eye 05/27/25 ointment infection 7 days #3.5 grams Allergies Allergy/AdvReac Type Severity Reaction Status Date / Time ciprofloxacin (From Cipro) Allergy Severe Sneezing Verified 05/27/25 17:38 diphenhydramine (From Allergy Severe suicidal Verified 05/27/25 17:38 Benadryl) iodine Allergy Severe Sneezing Verified 05/27/25 17:38 latex Allergy Severe sore Verified 05/27/25 17:38 Patient History Medical History Adjustment disorder with anxiety Essential hypertension Obstructive sleep apnea (adult) (pediatric) Dyslipidemia Decreased GFR Anemia Snoring (2016) Thyroid nodule incidentally noted on imaging study (10/2021) Hip pain Intra-ventricular conduction delay (08/2021) Amaurosis fugax, both eyes (08/2020) Vision changes (08/2020) Intermittent palpitations (07/2021) HSV-2 seropositive Encounter for wellness examination in adult (05/16/21) Encounter for routine gynecological examination (05/16/21) Possible exposure to STD Lymphedema Eczema (~2017) Allergies PTSD (post-traumatic stress disorder) (~1996) Autism Scoliosis (~1971) Chronic back pain (~2009) Cataracts, bilateral (~1998) Menopause (~1995) Deep vein thrombosis (~1992) Lymphoma (~1995) Mixed hyperlipidemia (06/2020) Anxiety (~1999) Depression (2009) History of suicide attempt (2009) History of non-Hodgkin's lymphoma (1994) Acquired autoimmune hypothyroidism (2017) Surgical History Anesthesia History of laparoscopy (~1992) History of biopsy (~1993) Family History Father History of heart disease Mental health problem Stroke Sister Mental health problem Grandmother Ovarian cancer Grandfather History of heart disease Stroke Grandmother Breast cancer Dementia Family/Other Mental health problem Social History household members: none Smoking Status: Never smoker second hand exposure: No alcohol intake: never substance use type: does not use Smoking Status: Never smoker alcohol intake frequency: holidays/special occasions only Exam Narrative Exam Narrative: GENERAL: Well-developed patient, in mild distress. HEAD: Atraumatic. Normocephalic. EYES: Pupils equal round and reactive. Extraocular motions intact. No scleral icterus. No injection or drainage. ENT: Nose without bleeding, purulent drainage. Throat without erythema, tonsillar hypertrophy or exudate. Airway patent. NECK: Trachea midline. Non tender CARDIOVASCULAR: Regular rate and rhythm without murmurs, gallops, or rubs. RESPIRATORY: Clear to auscultation. Breath sounds equal bilaterally. No wheezes, rales, or rhonchi. GASTROINTESTINAL: Abdomen soft, non-tender, nondistended. EXTREMITIES: No edema or joint tenderness. BACK: Nontender without deformity or crepitance. No flank tenderness. NEURO: AOx3. Motor functions grossly nonfocal. SKIN: No rash or erythema of visible areas Initial Vital Signs Initial Vital Signs: Vital Signs Temperature 97.2 F L 05/27/25 17:38 Pulse Rate 77 05/27/25 17:38 Respiratory Rate 18 05/27/25 17:38 Blood Pressure 101/67 05/27/25 17:38 Pulse Oximetry 97 05/27/25 17:38 Oxygen Delivery Method Room Air 05/27/25 17:38 Course Orders Ordered: Discontinued Medications Erythromycin (Erythromycin Ophth 1 Gm Oint) 1 applic EYE-BOTH NOW ONE Stop: 05/27/25 21:58 Last Admin: 05/27/25 22:13 Dose: 1 applic Documented By: MARLENY Vital Signs Vital signs: Vital Signs - 8 hr 05/27/25 22:33 Pulse Rate 58 L Respiratory Rate 16 Blood Pressure 122/67 Pulse Oximetry 97 Oxygen Delivery Method Room Air Medical Decision Making [facility] Narrative Medical decision making narrative: 55-year-old female with recent cough and nasal congestion, right-sided eye redness and discharge with some matting. I irritation symptoms left. No trauma known. No context known. Some discharge dried right eyelashes noted. Likely conjunctivitis, in context of recent cough and nasal congestion suspect viral. Consider local warm washcloth cleansing only. Patient prefers antibiotic topical treatment. Dispensed topical erythromycin ophthalmic ointment, small tube, prescription sent for further course to her pharmacy. Advised to consider Tylenol as needed for discomfort. Take topical erythromycin antibiotic ointment as prescribed. Recheck early next week if not improving. Return precautions discussed. Discharged home. Discharge Plan Departure Patient Disposition: Home Clinical Impression: Conjunctivitis, Upper respiratory infection Activity Restrictions/Additional Instructions: Recent cough cold symptoms sore throat, with right-sided eye irritation and redness, and discharge, no discharge yet to the left eye but some irritation symptoms to left eye as well. Likely conjunctivitis that by history might very well be viral. But with discharge and exudate to the right side consider topical antibiotic. Erythromycin ophthalmic ointment dispensed for in the emergency department, take 1 small ribbon to affected eye 3 times daily for one-week. Home pack of the topical antibiotic provided, prescription sent for further supply to your pharmacy. Take Tylenol and or Motrin as needed for pain and for fever. Recheck with your regular doctor if not improving early next week. Return earlier to this/nearest emergency department for any change worsening symptoms or any concerns prior. Prescriptions: New erythromycin 5 mg/gram (0.5 %) ointment 1 applic EYE-BOTH TID 7 Days Qty: 3.5 0RF erythromycin 5 mg/gram (0.5 %) ointment 1 applic EYE-LEFT TID 7 Days Qty: 3.5 0RF No Action cetirizine [Zyrtec] 10 mg tablet 10 mg PO DAILY PRN biotin 2,500 mcg capsule 2,500 mcg PO DAILY calcium carbonate [Calcium 500] 500 mg calcium (1,250 mg) tablet,chewable 500 mg PO DAILY hydroxyzine HCl 10 mg tablet 10 mg PO QID PRN (Reason: anxiety ) Qty: 120 0RF Rx Instructions: can titrate up to 30mg PO QID PRN if tolerated but ineffective for anxiety at lower doses Disabled Parking Permit See Rx Instructions .ROUTE .COMPLEX Qty: 1 0RF Rx Instructions: I find this patient to be medically disabled and qualify for disabled parking as indicated and signed on the accompanying disabled parking application for individuals. duloxetine 30 mg capsule,delayed release(DR/EC) 90 mg PO DAILY Qty: 270 1RF trazodone 50 mg tablet See Rx Instructions .ROUTE .COMPLEX Qty: 270 1RF Dose Instruction: take 3 tablets by mouth at bedtime Rx Instructions: take 3 tablets by mouth at bedtime levothyroxine 13 mcg capsule 13 mcg PO DAILY Qty: 90 0RF Rx Instructions: Please repeat thyroid lab in 6 weeks aripiprazole 5 mg tablet See Rx Instructions .ROUTE .COMPLEX Qty: 90 1RF Dose Instruction: take 1 tablet by mouth once daily Rx Instructions: take 1 tablet by mouth once daily lisinopril-hydrochlorothiazide 10-12.5 mg tablet 1 tab PO DAILY Qty: 90 3RF rosuvastatin 10 mg tablet 10 mg PO DAILY Qty: 90 3RF oxycodone 10 mg tablet 10 mg PO .COMPLEX Patient Comments: AM and 1400 Rx Instructions: 10 mg orally 4x daily; magnesium oxide 400 mg magnesium tablet 400 mg PO DAILY aspirin 81 mg tablet,delayed release (DR/EC) 81 mg PO DAILY ferrous sulfate [Sly-Time] 325 mg (65 mg iron) tablet 325 mg PO DAILY (DME) [facility] Airsense 10 0 .Route .MEDSUPPLY Referrals: Thomas Bernard ARNP [Primary Care Provider, Medical] Stand Alone Forms: Patient Portal/API
[2025-05-27] MEDS: ERYTHROMYCIN OPHTH 1 GM OINT 1 APPLIC EYE-BOTH (22:13)
[2025-05-27 22:33] VITALS: BP 122/67; PULSE 58; RESP 16; O2SAT 97
== END 2025-05-27 22:35 | disposition home or self-care (01) ==
PROVIDERS: Emergency Provider Emergency Medicine; PCP Registered Nurse Diabetes Educator
DX: H10.9 Unspecified conjunctivitis (principal); J06.9 Acute upper respiratory infection, unspecified
CPT/HCPCS: 99282

== ENCOUNTER → 2025-06-18 14:49 | Outpatient (CLI) | payer OTHER, MEDICAID, SELFPAY ==
--- NOTE | 2025-06-18 14:50 | DI.US.S_ITS ---
PROCEDURE: US THYROID INDICATIONS: f/u nodules TECHNIQUE: Real-time scanning was performed of the thyroid gland, with image documentation. COMPARISON: [facility], [place], US THYROID, 12/28/2021, 9:24. FINDINGS: Thyroid: Right lobe measures 4.2 x 1.6 x 1.8 cm. Left lobe measures 3.8 x 1.2 x 1.5 cm. Isthmus is 0.3 cm thick. Echotexture is heterogeneous. Nodule number: 1 Location: Upper pole right thyroid lobe Size: 1 x 0.9 x 0.9 cm, new since previous study. Composition: Predominantly solid Echogenicity: Hyperechoic Shape: Wider than tall Margins: Smooth Echogenic foci: None Total points: 3 ACR TI-RADS category: 3 Nodule number: 2 Location: Midpole right thyroid lobe Size: 2 x 1.3 x 1.7 cm, previously 1.9 x 1.3 x 1.5 cm Composition: Solid Echogenicity: Hypoechoic Shape: Wider than tall Margins: Irregular Echogenic foci: Macro calcifications. Total points: 7 ACR TI-RADS category: 5 Previously described left thyroid lobe nodules are not definitively seen on the current study. IMPRESSION: 1. Category 5 nodule in mid pole right thyroid lobe stable in size compared to previous study. Consider fine-needle aspiration of this nodule if not previously done. 2. Category 3 nodule in upper pole right thyroid lobe new since previous study, continued ultrasound follow-up is recommended. ACR TI-RADS definitions and recommendations: TI-RADS 1 (benign): 0 points. FNA not needed. TI-RADS 2 (not suspicious): 2 points. FNA not needed. TI-RADS 3: 3 points. * FNA if 2.5 cm or larger, follow up if 1.5 cm or larger (at 1, 3, and 5 years). TI-RADS 4: 4-6 points. * FNA if 1.5 cm or larger, follow up if 1 cm or larger (at 1, 2, 3, and 5 years). TI-RADS 5: 7 points or more. * FNA if 1 cm or larger, follow up if 0.5 cm or larger (every year for 5 years). Dictated by: Jona Alegria M.D. on 06/19/2025 at 23:33 Approved by: Jona Alegria M.D. on 06/19/2025 at 23:41
== END ==
LOC: US 14:49
PROVIDERS: PCP Registered Nurse Diabetes Educator; Referring Provider Registered Nurse Diabetes Educator; Visit Provider Registered Nurse Diabetes Educator
DX: E04.2 Nontoxic multinodular goiter (principal); E06.3 Autoimmune thyroiditis; E05.90 Thyrotoxicosis, unspecified without thyrotoxic crisis or storm
CPT/HCPCS: 76536

== ENCOUNTER → 2025-06-30 08:27 | Outpatient (CLI) | payer OTHER, MEDICAID, SELFPAY ==
--- NOTE | 2025-06-30 | PATH_ITS ---
Note [facility] Accession Number: [id number] TESTS RESULT FLAG UNITS REF RANGE LAB Clinician Provided Cytology Information No. of containers..01 Other (Miscellaneous) No. of containers..08 Previously Prepared Cytology Slide Source: RIGHT THYROID FNA #2 DIAGNOSIS: RIGHT THYROID NODULE, FINE NEEDLE ASPIRATION #2 INADEQUATE, INSUFFICIENT CELLS FOR STUDY (THREE GROUPS ARE PRESENT, LESS THAN THE MINIMUM NUMBER (SIX) OF GROUPS REQUIRED FOR ADEQUACY). [place] CATEGORY I. RE-ASPIRATION RECOMMENDED. Pathologist ICD10: E04.1, E06.3 Signed out by: Marline Street MD, Pathologist NPI- [id number] Performed by: Colby Romeo, Monotypist ([facility]) Gross description: 30 CC, RED, HAZY RECIEVED: IN CYTOLYT WITH 9 ALCOHOL FIXED AND 9 QUICK STAINED SLIDES ALSO 1 RNA VIAL WILL ON 12-10-2026.VO /VDU 07/01/2025 0700 Local FLAG LEGEND: L-Low Normal,H-High Normal,LL-Alert Low,HH-Alert High <-Panic Low,>-Panic High,A-Abnormal,AA-Critical Abnormal Performed at: 01 [address], [place] [address] Memo Rico MD, Performed at: [address], [place], [place] [id number] MD Memo Rico MD Phone: [phone]
--- NOTE | 2025-06-30 08:30 | DI.US.S_ITS ---
PROCEDURE: US FINE NEEDLE ASPIRATION INDICATIONS: RIGHT THYROID NODULE #2 TECHNIQUE: The indications, alternatives, benefits, risks, and complications of the procedure were explained to the patient. Written informed consent was obtained and placed in the chart. Real-time sonography was utilized to choose the site for percutaneous lymph node sampling. The skin was prepped and draped in the usual sterile fashion. 1% lidocaine was infiltrated down to the site of interest. Serial hypodermic needles were then advanced into the site of interest under direct sonographic visualization, and serial needle aspirates were obtained. The needles were then withdrawn; a bandage was applied to the procedure site. COMPARISON: None. FINDINGS: Sample site(s): Right mid thyroid lobe Needle: 25 gauge needle. Number of passes: 9. Medications: 1% lidocaine for local anaesthesia. Complications: None. IMPRESSION: Successful ultrasound-guided right lymph node fine needle aspiration, with cytology results pending. Dictated by: Yahir Otoole M.D. on 06/30/2025 at 12:02 Approved by: Yahir Otoole M.D. on 06/30/2025 at 12:02
== END ==
PROVIDERS: PCP Registered Nurse Diabetes Educator; Referring Provider Registered Nurse Diabetes Educator; Visit Provider Registered Nurse Diabetes Educator
DX: E05.90 Thyrotoxicosis, unspecified without thyrotoxic crisis or storm (principal); E04.1 Nontoxic single thyroid nodule; E06.3 Autoimmune thyroiditis
CPT/HCPCS: 10005

== ENCOUNTER → 2025-08-18 09:29 | Outpatient (CLI) | payer OTHER, MEDICAID, SELFPAY ==
[2025-08-18 09:46] LABS: Hematocrit 34.8 % (36-46); Hemoglobin 11.7 g/dL (12.0-16.0); Mean Corpuscular HGB Conc 33.6 % (30-36); Mean Corpuscular Hemoglobin 29.2 PG (26-34); Mean Corpuscular Volume 87.0 fL (80-100); Platelet Count 259 X10^3/uL (150-400)
[2025-08-18 10:16] LABS: Alanine Aminotransferase 20 IU/L (<35); Albumin 4.1 g/dL (3.5-5.0); Albumin Globulin Ratio 1.6 (1.0-2.8); Alkaline Phosphatase 67 U/L (38-126); Blood Urea Nitrogen 23 mg/dL (7-17); Calcium 9.6 mg/dL (8.4-10.2); Carbon Dioxide 30 mmol/L (22-32); Chloride 104 mmol/L (98-107); Cholesterol 139 mg/dL (140-199); Estimated Glomerular Filt Rate > 60 mL/min (>60); Globulin 2.5 g/dL (1.7-4.1); Glucose 89 mg/dL (70-99); HDL Cholesterol 54 mg/dL (40-60); HEMOLYSIS < 15 (0-50); Potassium 3.9 mmol/L (3.4-5.1); Sodium 140 mmol/L (137-145); Total Protein 6.6 g/dL (6.3-8.2); Triglycerides 105 mg/dL (35-150)
[2025-08-18 10:35] LABS: Free T4, Direct Thyroxine 1.09 ng/dL (0.78-2.19)
[2025-08-18 10:49] LABS: Thyroid Stimulating Hormone 0.307 uIU/mL (0.47-4.68)
== END ==
PROVIDERS: Family Provider Registered Nurse Diabetes Educator; PCP Registered Nurse Diabetes Educator; Referring Provider Registered Nurse Diabetes Educator; Visit Provider Registered Nurse Diabetes Educator
DX: I10 Essential (primary) hypertension (principal); E04.1 Nontoxic single thyroid nodule; E78.2 Mixed hyperlipidemia; E06.3 Autoimmune thyroiditis; E05.90 Thyrotoxicosis, unspecified without thyrotoxic crisis or storm
CPT/HCPCS: 36415; 80053; 80061; 84439; 84443; 84445; 84480; 85027

== ENCOUNTER → 2025-09-10 09:37 | Outpatient (CLI) | payer OTHER, MEDICAID, SELFPAY ==
--- NOTE | 2025-09-10 09:39 | DI.MG.S_ITS ---
MM screening mammo BI: 09/10/2025. BI-RADS: 2 CLINICAL: 55-year old female for bilateral screening mammogram. Tyrer-Cuzick lifetime risk of 5.2%. No personal or first-degree family history of breast cancer. Current reported family history of breast cancer: maternal grandmother. The patient had a prior right breast biopsy. The patient is status-post reduction mammoplasty. PRIOR EXAMS 09/09/2024, 07/12/2023, 06/21/2022, 06/20/2021. MAMMOGRAPHY TECHNIQUE: 2D and 3D (tomosynthesis) digital mammographic views obtained, with additional images as needed for full coverage. Current study was also evaluated with a Computer Aided Detection (CAD) system. DENSITY B. There are scattered areas of fibroglandular density. MAMMOGRAPHY FINDINGS Right: Biopsy marker present on the right. There are no suspicious masses, calcifications, or other findings in the breast. Left: No suspicious mass, asymmetry, microcalcification, or other abnormality seen. IMPRESSION: Right * No evidence of malignancy with benign findings. Left * No evidence of malignancy. RECOMMENDATIONS Bilateral * Annual screening mammography. OVERALL ASSESSMENT CATEGORY BI-RADS-2: Benign. The [employer] recommends annual screening mammography beginning at age 40 for women with average risk of breast cancer. ELECTRONICALLY SIGNED: Delia Pate M.D. on 09/12/2025 at 11:43:32 PM PT Interpreting Station ID: [id number]
== END ==
PROVIDERS: Family Provider Registered Nurse Diabetes Educator; PCP Registered Nurse Diabetes Educator; Referring Provider Registered Nurse Diabetes Educator; Visit Provider Registered Nurse Diabetes Educator
DX: Z12.31 Encounter for screening mammogram for malignant neoplasm of breast (principal); Z80.3 Family history of malignant neoplasm of breast
CPT/HCPCS: 77063; 77067

== ENCOUNTER 2025-09-28 09:00 | Outpatient (RCR) | payer OTHER, MEDICAID, SELFPAY ==
--- NOTE | 2025-07-22 18:00 | PT.OIE ---
Current Diagnoses Pain in left elbow (07/22/25) Lateral epicondylitis, left elbow (07/22/25) Past Medical History (Last Updated 06/10/25 @ 15:36 by NAVID Velasco) Acquired autoimmune hypothyroidism (2017) Adjustment disorder with anxiety Allergies Amaurosis fugax, both eyes (08/2020) Anemia Anxiety (~1999) Autism Cataracts, bilateral (~1998) Chronic back pain (~2009) Decreased GFR Deep vein thrombosis (~1992) Depression (2009) Dyslipidemia Eczema (~2017) Encounter for routine gynecological examination (05/16/21) Encounter for wellness examination in adult (05/16/21) Essential hypertension Hip pain History of non-Hodgkin's lymphoma (1994) History of suicide attempt (2009) HSV-2 seropositive Intermittent palpitations (07/2021) Intra-ventricular conduction delay (08/2021) Lymphedema Lymphoma (~1995) Menopause (~1995) Mixed hyperlipidemia (06/2020) Obstructive sleep apnea (adult) (pediatric) Possible exposure to STD PTSD (post-traumatic stress disorder) (~1996) Scoliosis (~1971) Snoring (2016) Subclinical hyperthyroidism Thyroid nodule incidentally noted on imaging study (10/2021) Vision changes (08/2020) Past Surgical History (Last Reviewed 11/16/24 @ 15:57 by NAVID Velasco) Anesthesia History of biopsy (~1993) History of laparoscopy (~1992) Visit Care Team Role Provider Type NAVID Velasco Family Provider Advanced Director Personal Primary Care Provider Specialty: Medical Address: [address] [place], [place] [id number] Email: [email or web address] Alvarado PA-C Attending Provider Physician Referring Provider Specialty: Medical Address: [address] [place] [address], [id number] Email: Physical Therapy Initial Evaluation PT OP: Cervical/Upper Extremity Start: 07/22/25 13:30 Freq: Status: Active Protocol: Document 07/22/25 13:30 PILOT TEACHER (Rec: 07/22/25 13:34 PILOT TEACHER Laptop) Out-Patient Physical Therapy Visit Information Visit Information Visit Type Initial Evaluation Visit Start Time 14:36 Visit Stop Time 15:23 Visit Number 1 Number of SYSTEMS TECHNICIAN Visits 0 Progress Note Due 08/21/25 Current Condition History of Current Condition Onset Date ~ 1 month ago Current Complaints L lateral elbow pain History of Current Pt comes into session with L elbow brace. L elbow pain Condition 0/10 pain at rest and up to a 6/10 at worst when reaching out in front of her or reaching out to left, anything extending elbow. L elbow started hurting and gradually starting getting worse and worse. Went to walk in clinic and they dx with L tennis elbow. [place] weakness in L arm with difficulty grabbing or lifting objects d/t weakness, using RUE to help support so she doesn't drop objects but has dropped objects. R hand dominant. Pt thinks this started d/t sitting on L side of couch and reaching to L with L hand to waste picker objects from coffee table or CPAP from L side of bed. After visiting walk in clinic, she went to [facility] and found a Chace brace for tennis elbow and has been wearing it for a week and it feels less painful and weak to reach out to things. Is taking oxycodone 10mg 4x/day for a few years for chronic back pain. Treatment Goals Patient/Caregiver To reduce pain in L elbow to a 1-2 without brace. Goals Patient Questionnaires Quick Dash- Upper Extremity Quick Dash UE Score 31.8% Manual Assessments Other Manual Assessments Other Manual TTP and decreased soft tissue mobility to L forearm Assessments flexors and extensors especially at medial and lateral epicondyles and triceps, minimal impairment at biceps Shoulder Goniometric Range of Motion Shoulder L Shoulder ROM WFL Yes Testing Position Standing Flexion 150 Extension 75 Abduction 130 External Rotation at 75 90 degrees Abduction External Rotation at 55 0 degrees Abduction Internal Rotation T12 Behind Back (text) Comments measured without brace ER at 0: pain free 0-55 degrees, painful 55-85 degrees at distal lateral forearm up lateral upper arm to shoulder 3/10 Elbow/Forearm Range of Motion Elbow/Forearm L ROM Testing Position Standing Elbow Flexion ( 35 degrees) Elbow Extension ( 180 degrees) Comments measured without brace active elbow flex 1/10 pain pain worse at 90 degrees elbow ext Shoulder Strength Shoulder Manual Muscle Testing L Flexion 4+ Good+ Extension 4+ Good+ Abduction (C5) 5 Normal Adduction 5 Normal External Rotation 4- Good- Internal Rotation 4 Good Comments tested without brace pain with resisted flex moderate pain, ext most pain, IR minimal pain, ER minimal pain Elbow/Forearm Strength Elbow and Forearm Manual Muscle Testing L Flexion (C6) 4 Good Extension (C7) 4 Good Pronation 4+ Good+ Supination 4+ Good+ Comments tested without brace pain with resisted flex moderate, and pronation minimal Wrist Strength Wrist Manual Muscle Testing L Flexion (C7) 4 Good Extension (C6) 5 Normal Comments tested without brace pain with resisted flex moderate Hand Pulmonary Function Technician/Pinch Strength Hand Strength Right Pulmonary Function Technician (lbs) 80 Comments 80,80,80 Left Pulmonary Function Technician (lbs) 62 Comments 65,62,60 pain free, average 62 Therapeutic Activity Therapeutic Activity Activity modification Reps/Minutes 10 Comments discussed varying sitting locations on couch by moving or adding coffee table to R side and or rotating body to reduce repetitive ER/ext of L arm to grab remote and water cup and moving CPAP to R side of bed and sleeping on R side to rest L UE Physical Therapy Assessment Rehab Potential Rehabilitation Excellent Potential Evaluation Complexity Number of Personal 1-2 Factors/ Comorbidities Number of Body 3 Systems Impaired Clinical Evolving Presentation at Evaluation Impairments Impairments Activity Tolerance,Functional Activities,Pain,ROM,Soft Tissue Mobility,Strength Goals 2 Impairment Lifting Impairment Pt unable to lift and grasp objects in LUE alone without assist from RUE or dropping objects Short Term Goal (STG Pt will improve L nuclear equipment test engineer strength from 62# to at least 72 ) # in order to improve LUE function. STG Duration 09/02/12 Tube Dispatcher Goal (LTG) Pt will demonstrate lifting 10lb dumbbell off shoulder height level shelf 10x3 with LUE without dropping with pain no greater than 2/10. LTG Duration 10/14/25 1 Impairment Quick Dash Upper Extremity Impairment On eval: 25= 31.8% impairment Usp Goal (LTG) Pt will score no greater than 5% disability on Quick Dash Upper Extremity in order to improve functional mobility and full use of LUE. LTG Duration 10/14/25 Assessment Summary Assessment Pt presents with L forearm pain mainly at lateral epicondyle with elbow extension with signs and symptoms consistent with medial and lateral epicondylitis. Pt wearing L elbow tennis elbow brace with reduces pain, all tests and measures taken without brace. Pt demonstrates mild weakness of L shoulder flex and ext with pain and moderate weakness at ER and IR, mild weakness of pronation and supination and moderate weakness of elbow flex and ext with pain mostly during resisted flex, and weakness and moderate pain with resisted wrist flex with ~20 lb nuclear equipment test engineer strength deficit of L vs R. Pt will highly benefit from skilled PT intervention to reduce inflammation to and strengthen L shoulder, elbow, and wrist flexors and extensors and strengthen shoulder ER and IR in order to improve functional mobility back to baseline. Physical Therapy Plan Frequency and Duration Frequency of 1-2x/wk Treatment Duration of 12 treatment (weeks) Plan of Care Start 07/22/25 Date Plan of Care End 10/14/25 Date Therapeutic Interventions Therapeutic Home Exercise Program,Joint Mobilizations,Manual Interventions Therapy,Neuromuscular Re-education,Orthotic/Prosthetic Management,Patient/Caregiver Education,Self-Care/Home Management,Soft Tissue Mobilization,Taping,Therapeutic Activities,Therapeutic Exercises Modalities Cold Pack/Ice Massage,Electric Stimulation,Hot Packs, Ultrasound Next Visit Focus/Plan Next Note Type Treatment Note Next Visit Plan TFM to L forearm flexor and ext tendons, ice massage as needed, ER/IR exercises to add to HEP, gentle elbow and wrist stretching
--- NOTE | 2025-07-30 13:00 | PT.OTN ---
Current Diagnoses Pain in left elbow (07/30/25) Lateral epicondylitis, left elbow (07/30/25) Physical Therapy Treatment Note PT OP: Cervical/Upper Extremity Start: 07/22/25 13:30 Freq: Status: Active Protocol: Document 07/30/25 09:06 MOBILE SALES CONSULTANT (Rec: 07/30/25 09:51 MOBILE SALES CONSULTANT Laptop) Out-Patient Physical Therapy Visit Information Visit Information Visit Type Treatment Note Visit Start Time 09:09 Visit Stop Time 09:50 Visit Number 2 Number of SENIOR NET SOFTWARE ENGINEER Visits 0 Progress Note Due 08/21/25 OP-PT Subjective Patient Comments Patient Comments Pt amb into session without arm brace as she forgot to don today, current pain 3/10 to L forearm. Therapeutic Exercises Sitting Exercises Elbow flex Side left Equipment Used 1# dumbbell Reps/Minutes 10x2 Wrist sup/pron Sitting Exercise supination and pronation Name Side left Resistance 1# dumbbell Reps/Minutes 10x2 each Wrist flex/ext Sitting Exercise flex and ext Name Side left Resistance 1# dumbbell Reps/Minutes 10x2 each Stretching Sitting Exercise wrist flex and ext stretch after TFM Name Side left Reps/Minutes 30sx3 Standing Exercises Elbow ext Side left Equipment Used 1# dumbbell Reps/Minutes 10x2 Manual Therapy Treatment Consent Patient gave verbal Yes consent for manual treatment Soft Tissue Mobilization forearm Body Location L forearm extensors and flexors Mobilization Type Cross-Friction Intensity/Depth Moderate Body Position Sitting Physical Therapy Assessment Goals 2 Impairment Lifting Impairment Pt unable to lift and grasp objects in LUE alone without assist from RUE or dropping objects Short Term Goal (STG Pt will improve L machine silk screen printer strength from 62# to at least 72 ) # in order to improve LUE function. STG Duration 09/02/12 Nursing Home Goal (LTG) Pt will demonstrate lifting 10lb dumbbell off shoulder height level shelf 10x3 with LUE without dropping with pain no greater than 2/10. LTG Duration 10/14/25 1 Impairment Quick Dash Upper Extremity Impairment On eval: 25= 31.8% impairment Ethylene Oxide Panelboard Operator Goal (LTG) Pt will score no greater than 5% disability on Quick Dash Upper Extremity in order to improve functional mobility and full use of LUE. LTG Duration 10/14/25 Assessment Summary Assessment Pt tolerated all wrist and elbow extensors and flexors TFM, stretches, and exercises with 1# dumbbell with handout given to perform without weight against gravity as pt does not have 1# dumbbell at home, if pt tolerated after session will continue with 1# dumbbell in session and against gravity at home until able to tolerate 2# dumbbell and will advance HEP as pt has a 2 # dumbbell at home. Recommended to apply ice after session. HEP HO given with pt's approved number of exercises on it as to not overwhelm her for best chance for compliance. Physical Therapy Plan Frequency and Duration Frequency of 1-2x/wk Treatment Duration of 12 treatment (weeks) Plan of Care Start 07/22/25 Date Plan of Care End 10/14/25 Date Next Visit Focus/Plan Next Note Type Treatment Note Next Visit Plan review HEP, ice massage as needed to forearm flexor and extensor tendons, L shoulder ER/IR with TB in standing
--- NOTE | 2025-08-03 15:46 | PT.OTN ---
Current Diagnoses Pain in left elbow (08/03/25) Lateral epicondylitis, left elbow (08/03/25) Physical Therapy Treatment Note PT OP: Cervical/Upper Extremity Start: 07/22/25 13:30 Freq: Status: Active Protocol: Document 08/03/25 13:53 LOADER OPERATOR (Rec: 08/03/25 14:36 LOADER OPERATOR Laptop) Out-Patient Physical Therapy Visit Information Visit Information Visit Type Treatment Note Visit Start Time 13:53 Visit Stop Time 14:34 Visit Number 3 Number of RAW MATERIAL PLANNER Visits 0 Progress Note Due 08/21/25 OP-PT Subjective Patient Comments Patient Comments Pt to session with L elbow brace today, reports current pain at 2/10. Reports no increased soreness after using 1# weight last session. Therapeutic Exercises Supine Exercises Serratus punches Side left Reps/Minutes 10x2 Comments without pain Sitting Exercises Line Painting Machine Operator Sitting Exercise putty Name Side left Resistance level 1 (yellow) Reps/Minutes 3 mins before fatigue Comments given as HEP Wrist sup/pron Sitting Exercise supination and pronation Name Side left Resistance 2# dumbbell Reps/Minutes 10x3 each Comments clicking at flexor tendons with weight, improved with sustained pressure Standing Exercises Scap retract Side bilateral Equipment Used mirror for cueing Reps/Minutes 10x3 Comments maintains good positioning without VC Shoulder IR Side left Resistance L1 TB Equipment Used towel roll Reps/Minutes 10x2 Comments no pain, VC for upright posture and shoulders back Shoulder ER Side left Resistance L1 TB Equipment Used towel roll Reps/Minutes 10x2 Comments no pain, VC for upright posture and shoulders back Manual Therapy Treatment Consent Patient gave verbal Yes consent for manual treatment Soft Tissue Mobilization forearm Body Location L forearm extensors and flexors Mobilization Type Cross-Friction Intensity/Depth Moderate Body Position Sitting Comments ice massage with good results Physical Therapy Assessment Goals 2 Impairment Lifting Impairment Pt unable to lift and grasp objects in LUE alone without assist from RUE or dropping objects Short Term Goal (STG Pt will improve L senior devops engineer strength from 62# to at least 72 ) # in order to improve LUE function. STG Duration 09/02/12 Order Dispatcher Goal (LTG) Pt will demonstrate lifting 10lb dumbbell off shoulder height level shelf 10x3 with LUE without dropping with pain no greater than 2/10. LTG Duration 10/14/25 1 Impairment Quick Dash Upper Extremity Impairment On eval: 25= 31.8% impairment Order Dispatcher Goal (LTG) Pt will score no greater than 5% disability on Quick Dash Upper Extremity in order to improve functional mobility and full use of LUE. LTG Duration 10/14/25 Assessment Summary Assessment Pt instructed to upgrade HEP to use of 2# dumbbell as she had no increased soreness after use of 1# dumbbell after last session. Pt given theraputty L1 to add to HEP for L senior devops engineer strength. Tolerated shoulder ER/IR and scapular exercises well with no increased pain, no other new exercises added to HEP per pt request to prevent getting overwhelmed. Physical Therapy Plan Frequency and Duration Frequency of 1-2x/wk Treatment Duration of 12 treatment (weeks) Plan of Care Start 07/22/25 Date Plan of Care End 10/14/25 Date Next Visit Focus/Plan Next Note Type Treatment Note Next Visit Plan upgrade HEP as tolerated, L shoulder ER/IR with L2 TB as tolerated, scapular strengthening, pec stretch
--- NOTE | 2025-08-05 16:38 | PT.OTN ---
Current Diagnoses Pain in left elbow (08/05/25) Lateral epicondylitis, left elbow (08/05/25) Physical Therapy Treatment Note PT OP: Cervical/Upper Extremity Start: 07/22/25 13:30 Freq: Status: Active Protocol: Document 08/05/25 08:14 SAK (Rec: 08/05/25 08:43 SAK Laptop) Out-Patient Physical Therapy Visit Information Visit Information Visit Type Treatment Note Visit Start Time 08:15 Visit Stop Time 08:55 Visit Number 4 Number of SAFETY ADMIN ASSISTANT Visits 0 Progress Note Due 08/21/25 OP-PT Subjective Patient Comments Patient Comments No change since last session, only has been 2 days. Has been using putty; used on way to PT today, feels helpful. Pain 02/01. Therapeutic Exercises Supine Exercises Serratus punches Side left Resistance 2# Reps/Minutes 10x2 Comments without pain Sidelying Exercises open book Reps/Minutes 10x2 Sitting Exercises Customer Contact Representative Sitting Exercise HEP Name Wrist sup/pron Sitting Exercise supination and pronation Name Side left Resistance 2# dumbbell Reps/Minutes 10x3 each Comments clicking at flexor tendons with weight, improved with sustained pressure Wrist flex/ext Sitting Exercise flex and ext Name Side left Resistance 1# dumbbell Reps/Minutes 10x2 each Standing Exercises row Resistance L2 TB Reps/Minutes 10x2 Scap retract Side bilateral Equipment Used mirror for cueing Reps/Minutes 10x3 Comments vc to inhibit UT Shoulder IR Side left Resistance L1 TB Equipment Used towel roll Reps/Minutes 10x2 Comments reports discomfort but no pain, VC for upright posture and shoulders back Shoulder ER Side left Resistance L1 TB Equipment Used towel roll Reps/Minutes 10x2 Comments no pain, VC for upright posture and shoulders back Manual Therapy Treatment Consent Patient gave verbal Yes consent for manual treatment Soft Tissue Mobilization forearm Body Location L forearm extensors and flexors Mobilization Type Cross-Friction Intensity/Depth Moderate Body Position Sitting Comments ice massage with good results Self-Care/Home Management Treatment Education Patient Education Home Exercise Program,Pain Management Physical Therapy Assessment Impairments Impairments Activity Tolerance,Functional Activities,Pain,ROM,Soft Tissue Mobility,Strength Goals 2 Impairment Lifting Impairment Pt unable to lift and grasp objects in LUE alone without assist from RUE or dropping objects Short Term Goal (STG Pt will improve L raw material planner strength from 62# to at least 72 ) # in order to improve LUE function. STG Duration 09/02/12 Pen[facility]entiary Goal (LTG) Pt will demonstrate lifting 10lb dumbbell off shoulder height level shelf 10x3 with LUE without dropping with pain no greater than 2/10. LTG Duration 10/14/25 1 Impairment Quick Dash Upper Extremity Impairment On eval: 25= 31.8% impairment Alignment Technician Goal (LTG) Pt will score no greater than 5% disability on Quick Dash Upper Extremity in order to improve functional mobility and full use of LUE. LTG Duration 10/14/25 Assessment Summary Assessment Added 2# to serratus punch with good tolerance. Compliant to HEP, cues for correct ex performance especially neutral posture with scap retraction. Added open book with patient reporting good stretch, no pain . Physical Therapy Plan Frequency and Duration Frequency of 1-2x/wk Treatment Duration of 12 treatment (weeks) Plan of Care Start 07/22/25 Date Plan of Care End 10/14/25 Date Next Visit Focus/Plan Next Note Type Treatment Note Next Visit Plan Review open book, continue progression of ther ex. Manual treatment and ice massage to forearm flex and ext.
--- NOTE | 2025-08-19 15:14 | PT.OTN ---
Current Diagnoses Pain in left elbow (08/19/25) Lateral epicondylitis, left elbow (08/19/25) Physical Therapy Treatment Note PT OP: Cervical/Upper Extremity Start: 07/22/25 13:30 Freq: Status: Active Protocol: Document 08/19/25 14:34 SP (Rec: 08/19/25 14:43 SP [id number]) Out-Patient Physical Therapy Visit Information Visit Information Visit Type Treatment Note Visit Start Time 14:34 Visit Stop Time 15:14 Visit Number 5 Number of EXPLOSIVE OPERATOR GRENADE Visits 1 Progress Note Due 08/21/25 OP-PT Subjective Patient Comments Patient Comments Pt reports the yellow putty is to easy, can she get stronger. She states the ice massage is messy but does help with pain control. She is taking ibuprofen for inflammation reduction. She is compliant with dumbbell HEP and no problems. Therapeutic Exercises Supine Exercises HABD Supine Exercise Name trialed but causes L elbow tension discomfort- HOld Serratus punches Supine Exercise Name HEP reviewed Side left Resistance 2#DB Reps/Minutes 10x2 Comments without pain legs straight vs bent Sidelying Exercises open book Side bilateral Resistance AROM (not ready for added weight) Reps/Minutes 10x2 Comments good self corrections for pnfree range L elbow, still looks good effortAROM Sitting Exercises Integration Assistant Sitting Exercise 1. pot firer squeeze 2. individual pincer opposition 3. 2-5 Name finger flexion pot firer Resistance yellow putty>red>green putty Reps/Minutes 10 reps each Comments good strength. Ed can hide buttons in putty and pick out too. Wrist sup/pron Sitting Exercise supination and pronation Name Side left Resistance 2# dumbbell and added TB #4 dark blue TB latex free Reps/Minutes 10x3 each Comments no tendon clicking, good strengthening effort with DB and TB today Wrist flex/ext Sitting Exercise flex and ext Name Side left Resistance 2# dumbbell added TB #4 dark blue TB latex free Reps/Minutes 10x2 each Comments good effort Manual Therapy Treatment Consent Patient gave verbal Yes consent for manual treatment Soft Tissue Mobilization forearm Body Location L forearm extensors and flexors Mobilization Type Cross-Friction,Rolling,Sustained Pressure,Other Intensity/Depth Moderate Body Position Sitting Comments gentle STMs with more broad vs specific angling with education self application then added MWM sustained gentle pressure with wrist AROM flex/ext/pron/ supination Physical Therapy Assessment Goals 2 Impairment Lifting Impairment Pt unable to lift and grasp objects in LUE alone without assist from RUE or dropping objects Short Term Goal (STG Pt will improve L pot firer strength from 62# to at least 72 ) # in order to improve LUE function. STG Duration 09/02/12 Senior Living Goal (LTG) Pt will demonstrate lifting 10lb dumbbell off shoulder height level shelf 10x3 with LUE without dropping with pain no greater than 2/10. LTG Duration 10/14/25 1 Impairment Quick Dash Upper Extremity Impairment On eval: 25= 31.8% impairment Senior Living Goal (LTG) Pt will score no greater than 5% disability on Quick Dash Upper Extremity in order to improve functional mobility and full use of LUE. LTG Duration 10/14/25 Assessment Summary Assessment Pt good feedback response to manual, adjusted pressure with feedback and education self rolling vs MWM with wrist AROM both good benefits. Trialed theraband vs DB today with noted increased resistance but felt good, cues as needed for proper band positioning with forearm on lap and wrist direction liked the resistance both directions concentric and eccentric. Incorporated more putty gripping positions (forgot give HO for recall, can give next tx), and good feedback feel getting more strengthening with stronger green putty today to take home. Physical Therapy Plan Frequency and Duration Frequency of 1-2x/wk Treatment Duration of 12 treatment (weeks) Plan of Care Start 07/22/25 Date Plan of Care End 10/14/25 Date Therapeutic Interventions Therapeutic Home Exercise Program,Joint Mobilizations,Manual Interventions Therapy,Neuromuscular Re-education,Orthotic/Prosthetic Management,Patient/Caregiver Education,Self-Care/Home Management,Soft Tissue Mobilization,Taping,Therapeutic Activities,Therapeutic Exercises Modalities Cold Pack/Ice Massage,Electric Stimulation,Hot Packs, Ultrasound Next Visit Focus/Plan Next Note Type Progress Note Next Visit Plan DUe for PN next visit. POC: Review open book, continue progression of ther ex. Manual treatment and ice massage to forearm flex and ext.
--- NOTE | 2025-08-23 16:25 | PT.OPPN ---
Current Diagnoses Pain in left elbow (08/23/25) Lateral epicondylitis, left elbow (08/23/25) Physical Therapy Progress Note PT OP: Cervical/Upper Extremity Start: 07/22/25 13:30 Freq: Status: Active Protocol: Document 08/23/25 15:17 SAK (Rec: 08/23/25 16:25 SAK Laptop) Out-Patient Physical Therapy Visit Information Visit Information Visit Type Treatment Note Visit Start Time 15:18 Visit Stop Time 16:00 Visit Number 6 Number of AUTISM MOTOR SPECIALIST Visits 0 Progress Note Due 08/21/25 OP-PT Subjective Patient Comments Patient Comments More painful today, maybe overdid with putty, hurts all the way up into upper arm Therapeutic Exercises Supine Exercises goal post stretch Reps/Minutes 30 pec stretch Supine Exercise Name T Reps/Minutes 2x30 Serratus punches Supine Exercise Name HEP reviewed Side left Resistance 2#DB Reps/Minutes 10x2 Comments without pain legs straight vs bent Sidelying Exercises open book Side bilateral Resistance 1# R, 0# L Reps/Minutes 10x2 Comments cues for deep breath in/out end range Sitting Exercises Social Service Technician Sitting Exercise held today; overdone at home Name Wrist sup/pron Sitting Exercise supination and pronation Name Side left Resistance TB #4 dark blue TB latex free Reps/Minutes 10x3 each Comments no tendon clicking, good strengthening effort with DB and TB today Wrist flex/ext Sitting Exercise flex and ext Name Side left Resistance TB #4 dark blue TB latex free Reps/Minutes 10x2 each Comments good effort Manual Therapy Treatment Soft Tissue Mobilization forearm Body Location L forearm extensors and flexors Mobilization Type Cross-Friction,Rolling,Sustained Pressure,Other Intensity/Depth Moderate Body Position Supine Self-Care/Home Management Treatment Education Patient Education Home Exercise Program,Pain Management Other Education back off theraputty. Hot Pack/Cold Pack Treatment Ice Massage Location lateral epicondyle Patient Position Supine Patient Tolerance Good Comments 3 min Ultrasound Therapy Treatment Left Elbow Patient Position Supine Frequency Setting ( 3 mHz) Mode Setting Pulsed Duty Cycle 50 Intensity Setting (w 1.2 /cm2) Physical Therapy Assessment Goals 2 Impairment Lifting Impairment Pt unable to lift and grasp objects in LUE alone without assist from RUE or dropping objects Short Term Goal (STG Pt will improve L satellite communications operator strength from 62# to at least 72 ) # in order to improve LUE function. 08/24/25: 75#, goal met STG Duration goal met Prison Goal (LTG) Pt will demonstrate lifting 10lb dumbbell off shoulder height level shelf 10x3 with LUE without dropping with pain no greater than 2/10. 08/24/25: still need to use 10 lbs LTG Duration 10/14/25 1 Impairment Quick Dash Upper Extremity Impairment On eval: 25= 31.8% impairment Prison Goal (LTG) Pt will score no greater than 5% disability on Quick Dash Upper Extremity in order to improve functional mobility and full use of LUE. 08/24/25: 23+ 27% impairment, improved LTG Duration 10/14/25 Assessment Summary Assessment Patient highly compliant to HEP, overdid today with theraputty causing increased pain elbow and bicep. Social Service Technician strength increased by 13lbs per testing today. Patient still requires use of lynne UEs to lift something 10# or greater off shoulder height shelf. Quickdash score decreased by 4% showing improved function. Would benefit from continued skilled PT. Physical Therapy Plan Frequency and Duration Frequency of 1-2x/wk Treatment Duration of 12 treatment (weeks) Plan of Care Start 07/22/25 Date Plan of Care End 10/14/25 Date Therapeutic Interventions Therapeutic Home Exercise Program,Joint Mobilizations,Manual Interventions Therapy,Neuromuscular Re-education,Orthotic/Prosthetic Management,Patient/Caregiver Education,Self-Care/Home Management,Soft Tissue Mobilization,Taping,Therapeutic Activities,Therapeutic Exercises Modalities Cold Pack/Ice Massage,Electric Stimulation,Hot Packs, Ultrasound Next Visit Focus/Plan Next Note Type Treatment Note Next Visit Plan add bicep curl in PT, continue ther ex progression, manual therapy, consider Graston. ASsess response to ultrasound, continue if helpful.
--- NOTE | 2025-08-25 15:18 | PT.OTN ---
Current Diagnoses Pain in left elbow (08/25/25) Lateral epicondylitis, left elbow (08/25/25) Physical Therapy Treatment Note PT OP: Cervical/Upper Extremity Start: 07/22/25 13:30 Freq: Status: Active Protocol: Document 08/25/25 14:36 SP (Rec: 08/25/25 15:25 SP [id number]) Out-Patient Physical Therapy Visit Information Visit Information Visit Type Treatment Note Visit Note KAROL Mix assisted with ultrasound to L elbow med/lat and ther ex instruction cuing feedback to pt. while under direct instruction of HERB Gamez, with pt permission. Visit Start Time 14:36 Visit Stop Time 15:18 Visit Number 7 Number of CENTRAL SCHEDULER Visits 1 Progress Note Due 09/23/25 OP-PT Subjective Patient Comments Patient Comments Pt reports was sore pre last tx due to to much use of green putty. She returned to using Red putty for now until feel strong enough to progress again. She stated moved her CPAP machine to R side of her bed and moved her other items across room in living room so doesn't Therapeutic Exercises Sitting Exercises Waste Cotton Cleaner Comments verbal review can return to red putty vs green for now. Elbow flex Sitting Exercise Bicep Curl- review HEP Name Side left Equipment Used 2#DB Reps/Minutes 20 reps Comments good form Wrist sup/pron Sitting Exercise supination and pronation Name Side left Resistance 2# DB Reps/Minutes 10x3 each Comments no tendon clicking, good strengthening effort with DB and TB today Wrist flex/ext Sitting Exercise flex and ext Name Side left Resistance 3# DB Reps/Minutes 10x3 each Comments good effort, good light stretch no pain with incr Stretching Sitting Exercise wrist flex and ext stretch after STMs, US and ther ex Name Side left Reps/Minutes 30sx3 each direction Comments good gentle stretch flexors/extensors, good not push into pain Standing Exercises row Standing Exercise verbal review Name Shoulder IR Standing Exercise verbal review Name Shoulder ER Standing Exercise verbal review Name Elbow ext Standing Exercise verbal review Name Manual Therapy Treatment Consent Patient gave verbal Yes consent for manual treatment Soft Tissue Mobilization forearm Body Location L forearm extensors and flexors Mobilization Type Cross-Friction,Rolling Intensity/Depth Moderate Body Position Supine Comments proximal and distal Joint Mobilizations L elbow Direction inferior and lateral glides with strap Grade II Reps/Duration 4 reps Comments gentle pressure, towel roll under distal humerus and under strap anterior prox forearm, with and without elbow flex/ext medial Physical Therapy Assessment Goals 2 Impairment Lifting Impairment Pt unable to lift and grasp objects in LUE alone without assist from RUE or dropping objects Short Term Goal (STG Pt will improve L crankshaft grinder strength from 62# to at least 72 ) # in order to improve LUE function. 08/24/25: 75#, goal met STG Duration goal met Senior Support Engineer Goal (LTG) Pt will demonstrate lifting 10lb dumbbell off shoulder height level shelf 10x3 with LUE without dropping with pain no greater than 2/10. 08/24/25: still need to use 10 lbs LTG Duration 10/14/25 1 Impairment Quick Dash Upper Extremity Impairment On eval: 25= 31.8% impairment Senior Support Engineer Goal (LTG) Pt will score no greater than 5% disability on Quick Dash Upper Extremity in order to improve functional mobility and full use of LUE. 08/24/25: 23+ 27% impairment, improved LTG Duration 10/14/25 Assessment Summary Assessment Pt good feedback response to initiated gentle L elbow inferior and lateral mobility stretch. Pt tolerated increased resistance to forearm and wrist strengthening therex and instructed to continue home. Physical Therapy Plan Frequency and Duration Frequency of 1-2x/wk Treatment Duration of 12 treatment (weeks) Plan of Care Start 07/22/25 Date Plan of Care End 10/14/25 Date Therapeutic Interventions Therapeutic Home Exercise Program,Joint Mobilizations,Manual Interventions Therapy,Neuromuscular Re-education,Orthotic/Prosthetic Management,Patient/Caregiver Education,Self-Care/Home Management,Soft Tissue Mobilization,Taping,Therapeutic Activities,Therapeutic Exercises Modalities Cold Pack/Ice Massage,Electric Stimulation,Hot Packs, Ultrasound Next Visit Focus/Plan Next Note Type Treatment Note Next Visit Plan Recheck tolerance to 2-3# DB with ther ex last tx. POC: Continue ther ex progression, manual therapy, consider Graston next tx. Good tolerance to ultrasound, continue if having benefits.
--- NOTE | 2025-08-31 16:17 | PT.OTN ---
Current Diagnoses Pain in left elbow (08/31/25) Lateral epicondylitis, left elbow (08/31/25) Physical Therapy Treatment Note PT OP: Cervical/Upper Extremity Start: 07/22/25 13:30 Freq: Status: Active Protocol: Document 08/31/25 15:15 SAK (Rec: 08/31/25 15:22 SAK Laptop) Out-Patient Physical Therapy Visit Information Visit Information Visit Type Treatment Note Visit Start Time 15:16 Visit Stop Time 16:03 Visit Number 8 Number of TELEMETRY TECHNICIAN Visits 0 Progress Note Due 09/23/25 Current Condition History of Current Condition Onset Date ~ 1 month ago Current Complaints L lateral elbow pain History of Current Pt comes into session with L elbow brace. L elbow pain Condition 0/10 pain at rest and up to a 6/10 at worst when reaching out in front of her or reaching out to left, anything extending elbow. L elbow started hurting and gradually starting getting worse and worse. Went to walk in clinic and they dx with L tennis elbow. [place] weakness in L arm with difficulty grabbing or lifting objects d/t weakness, using RUE to help support so she doesn't drop objects but has dropped objects. R hand dominant. Pt thinks this started d/t sitting on L side of couch and reaching to L with L hand to olive picker objects from coffee table or CPAP from L side of bed. After visiting walk in clinic, she went to [facility] and found a Chace brace for tennis elbow and has been wearing it for a week and it feels less painful and weak to reach out to things. Is taking oxycodone 10mg 4x/day for a few years for chronic back pain. Treatment Goals Patient/Caregiver l Goals OP-PT Subjective Patient Comments Patient Comments Continues to use red theraputty. Elbow pain min when wearing brace, 4-5/10 without the brace. Liked joint mobilization with strap Therapeutic Exercises Sitting Exercises tricep extension Reps/Minutes 10x2 Comments added to HEP, declined HO Panel Edge Sealer Comments verbal discussion, pt. continues with red putty Elbow flex Sitting Exercise Bicep Curl- review HEP Name Side left Equipment Used 2#DB Reps/Minutes 20 reps Comments good form Wrist sup/pron Sitting Exercise supination and pronation Name Side left Resistance 2# DB Reps/Minutes 10x3 each Comments no tendon clicking, good strengthening effort with DB and TB today Wrist flex/ext Sitting Exercise flex and ext Name Side left Resistance 3# DB Reps/Minutes 10x3 each Comments denied pain, VC and Tc for technique Stretching Sitting Exercise wrist flex and ext stretch after STMs, US and ther ex Name Side left Reps/Minutes 30sx3 each direction Comments good gentle stretch flexors/extensors, good not push into pain Manual Therapy Treatment Soft Tissue Mobilization forearm Body Location L forearm extensors Mobilization Type Cross-Friction,Instrument Assisted,Rolling Intensity/Depth Moderate Body Position Supine Comments proximal and distal Joint Mobilizations L elbow Direction inferior and lateral glides Grade II Reps/Duration 4 reps Comments gentle pressure, towel roll under distal humerus and without elbow flex/ext medial Physical Therapy Assessment Goals 2 Impairment Lifting Impairment Pt unable to lift and grasp objects in LUE alone without assist from RUE or dropping objects Short Term Goal (STG Pt will improve L web offset press feeder strength from 62# to at least 72 ) # in order to improve LUE function. 08/24/25: 75#, goal met STG Duration goal met Mcc Goal (LTG) Pt will demonstrate lifting 10lb dumbbell off shoulder height level shelf 10x3 with LUE without dropping with pain no greater than 2/10. 08/24/25: still need to use 10 lbs LTG Duration 10/14/25 1 Impairment Quick Dash Upper Extremity Impairment On eval: 25= 31.8% impairment Mcc Goal (LTG) Pt will score no greater than 5% disability on Quick Dash Upper Extremity in order to improve functional mobility and full use of LUE. 08/24/25: 23+ 27% impairment, improved LTG Duration 10/14/25 Assessment Summary Assessment Pt. reports feels benefit from ultrasound. Added seated tricep ext with good mehreen. Trial KT tape lateral epicondyle x pattern after skin test. Trial Graston tool to forearm extensors with good mehreen, pt warned of potential bruising. Physical Therapy Plan Frequency and Duration Frequency of 1-2x/wk Treatment Duration of 12 treatment (weeks) Plan of Care Start 07/22/25 Date Plan of Care End 10/14/25 Date Therapeutic Interventions Therapeutic Home Exercise Program,Joint Mobilizations,Manual Interventions Therapy,Neuromuscular Re-education,Orthotic/Prosthetic Management,Patient/Caregiver Education,Self-Care/Home Management,Soft Tissue Mobilization,Taping,Therapeutic Activities,Therapeutic Exercises Modalities Cold Pack/Ice Massage,Electric Stimulation,Hot Packs, Ultrasound Next Visit Focus/Plan Next Note Type Treatment Note Next Visit Plan Evaluate response to KT tape, IASTM last session. Continue ultrasound, ice massage.
--- NOTE | 2025-09-02 14:27 | PT.OTN ---
Current Diagnoses Pain in left elbow (09/02/25) Lateral epicondylitis, left elbow (09/02/25) Physical Therapy Treatment Note PT OP: Cervical/Upper Extremity Start: 07/22/25 13:30 Freq: Status: Active Protocol: Document 09/02/25 13:48 SAK (Rec: 09/02/25 14:27 SAK Laptop) Out-Patient Physical Therapy Visit Information Visit Information Visit Type Treatment Note Visit Start Time 13:50 Visit Stop Time 14:28 Visit Number 9 Number of NATIONAL EXPANSION RECRUITER Visits 0 Progress Note Due 09/23/25 OP-PT Subjective Patient Comments Patient Comments Like KT tape, mild pain but works as well as brace but doesn't slide or pinch. No adverse skin reaction. Progressed to 3# weight at home. Therapeutic Exercises Sitting Exercises tricep extension Reps/Minutes 10x2 Comments added to HEP, declined HO Elbow flex Sitting Exercise Bicep Curl- review HEP Name Side left Equipment Used 2#DB Reps/Minutes 20 reps Comments good form Wrist sup/pron Sitting Exercise supination and pronation Name Side left Resistance 2# DB Reps/Minutes 10x3 each Comments no tendon clicking, good strengthening effort with DB and TB today Stretching Sitting Exercise wrist flex and ext stretch after STMs, US and ther ex Name Side left Reps/Minutes 30sx3 each direction Comments good gentle stretch flexors/extensors, good not push into pain Ultrasound Therapy Treatment Left Elbow Patient Position Sitting Frequency Setting ( 3 mHz) Mode Setting Pulsed Duty Cycle 50 Intensity Setting (w 1.2 /cm2) Physical Therapy Assessment Goals 2 Impairment Lifting Impairment Pt unable to lift and grasp objects in LUE alone without assist from RUE or dropping objects Short Term Goal (STG Pt will improve L hydroelectric machinery mechanic helper strength from 62# to at least 72 ) # in order to improve LUE function. 08/24/25: 75#, goal met STG Duration goal met Correction Goal (LTG) Pt will demonstrate lifting 10lb dumbbell off shoulder height level shelf 10x3 with LUE without dropping with pain no greater than /. 08/24/25: still need to use 10 lbs LTG Duration 10/14/25 1 Impairment Quick Dash Upper Extremity Impairment On eval: 25= 31.8% impairment Correction Goal (LTG) Pt will score no greater than 5% disability on Quick Dash Upper Extremity in order to improve functional mobility and full use of LUE. 08/24/25: 23+ 27% impairment, improved LTG Duration 10/14/25 Progress Towards Goals Progress Towards Progressing Toward Goals Goals Assessment Summary Assessment Patient responding well to ultrasound and KT tape, added I strip forearm extensors today. Patient advised to remove if skin irritation. Continued with use of Graston tool with good mehreen. Pt. highly compliant to HEP. Physical Therapy Plan Frequency and Duration Frequency of 1-2x/wk Treatment Duration of 12 treatment (weeks) Plan of Care Start 07/22/25 Date Plan of Care End 10/14/25 Date Therapeutic Interventions Therapeutic Home Exercise Program,Joint Mobilizations,Manual Interventions Therapy,Neuromuscular Re-education,Orthotic/Prosthetic Management,Patient/Caregiver Education,Self-Care/Home Management,Soft Tissue Mobilization,Taping,Therapeutic Activities,Therapeutic Exercises Modalities Cold Pack/Ice Massage,Electric Stimulation,Hot Packs, Ultrasound Next Visit Focus/Plan Next Note Type Treatment Note Next Visit Plan Evaluate response to KT tape, Continue ultrasound, ice massage as indicated. Consider prone or supine with TB ex for further posterior chain strengthening. Progress to 3# with bicep curl next session.
--- NOTE | 2025-09-07 15:22 | PT.OTN ---
Current Diagnoses Pain in left elbow (09/07/25) Lateral epicondylitis, left elbow (09/07/25) Physical Therapy Treatment Note PT OP: Cervical/Upper Extremity Start: 07/22/25 13:30 Freq: Status: Active Protocol: Document 09/07/25 14:44 SP (Rec: 09/07/25 14:47 SP [id number]) Out-Patient Physical Therapy Visit Information Visit Information Visit Type Treatment Note Visit Note SPTA Maria Del Rosario assisted with some ther ex instruction to support SURGICAL PROCESSOR, with pt permission and under direct supervision and some instruction of SURGICAL PROCESSOR Franco. SURGICAL PROCESSOR cued SPTA good to progress manager telemetry strength activities in position pt is used to doing if tolerated. Visit Start Time 14:44 Visit Stop Time 15:22 Visit Number 10 Number of SURGICAL PROCESSOR Visits 1 Progress Note Due 09/23/25 OP-PT Subjective Patient Comments Patient Comments Pt reports the Ktaping helped with stability. She is utilizing red putty for finger strength and will start given green soon, feels might be ready. Therapeutic Exercises Sitting Exercises tricep extension Sitting Exercise over head press with tricep ext Name Reps/Minutes 10 Comments standing Elbow flex Sitting Exercise Bicep Curl- review HEP (standing 09/07/25)- declined HO Name Side left Resistance 3#DB Equipment Used front of mirror Reps/Minutes 10 reps Comments good form front mirror Wrist sup/pron Sitting Exercise supination and pronation (standing 09/07/25) declined Name HO Side left Resistance TB #5 purple Reps/Minutes 10 each Comments cues arm at side con/eccentric, little mid forearm tendon roll but no pain Wrist flex/ext Sitting Exercise flex and ext (standing 09/07/25) declined HO Name Side left Resistance TB #5 purple Reps/Minutes 10x each Comments no pain, cues arm at side con/eccentric flex and ext Standing Exercises Torch carry Standing Exercise Overhead carry Name Resistance 5.5lb med ball Reps/Minutes 10 ft 1 lap Comments before felt couldn't hold any longer suitcase carry Standing Exercise walk across room/back Name Side left Resistance 1. 3.3 lbs med ball- wide manager telemetry 2. 5.5 med ball Reps/Minutes 40 ft 1 lap Comments trialed 5.5 med ball but unable walk futher than 4 ft and back Over Head Press Standing Exercise trialed in PT: 1. 3# DB over head front mirror 2. med Name ball onto shelf Resistance 1. 3# DB 2. 3.3 lb med ball up into cupboard wide manager telemetry Reps/Minutes 10 reps each Comments trialed 5.5 lb med ball but to heavy. row Standing Exercise reviewed Name Side left Resistance purple TB #5 Reps/Minutes 10 reps Comments good tension Elbow ext Standing Exercise reviewed HEP Name Side left Resistance purple TB #5 anchored high Reps/Minutes 2x10 reps Comments cued tall posture, little quivering return Manual Therapy Treatment Consent Patient gave verbal Yes consent for manual treatment Soft Tissue Mobilization forearm Comments verbal review self STMs rolling and MWM pin muscle forearm extensor tendons with wrist flex/ext Taping Ktape Body Location 3 taped strips Treatment Focus deccompression of CETs Type of Tape ktape Skin Inspection intact, normal color and texture. Comments 1. L lateral supracondular ridge of distal humerus, inferior pull to anterior distal radius 2. L medial supracondular ridge of distal humerus, inferior pull to anterior proximal radial head 3. L lateral proximal radial head, slight inferior and medial pull to anterior proximal ulna. Star pattern over lateral epicondyle of distal humerus. Physical Therapy Assessment Goals 2 Impairment Lifting Impairment Pt unable to lift and grasp objects in LUE alone without assist from RUE or dropping objects Short Term Goal (STG Pt will improve L manager telemetry strength from 62# to at least 72 ) # in order to improve LUE function. 08/24/25: 75#, goal met STG Duration goal met [place] Operator Goal (LTG) Pt will demonstrate lifting 10lb dumbbell off shoulder height level shelf 10x3 with LUE without dropping with pain no greater than 2/10. 08/24/25: still need to use 10 lbs 09/07/25: can hold her 5 lb jar rice approx across room but not further before can't maintain manager telemetry downward to floor directioning. LTG Duration 10/14/25 progressing 09/07/25 1 Impairment Quick Dash Upper Extremity Impairment On eval: 25= 31.8% impairment [place] Operator Goal (LTG) Pt will score no greater than 5% disability on Quick Dash Upper Extremity in order to improve functional mobility and full use of LUE. 08/24/25: 23+ 27% impairment, improved LTG Duration 10/14/25 Assessment Summary Assessment Pt good feedback response to increased resistance and in standing use of theraband today. Cues for proper arm positioning at side for stabiltiy. Good feedback response to ktaping support R elbow comfort during ADLs , decreased pain. Physical Therapy Plan Frequency and Duration Frequency of 1-2x/wk Treatment Duration of 12 treatment (weeks) Plan of Care Start 07/22/25 Date Plan of Care End 10/14/25 Date Therapeutic Interventions Therapeutic Home Exercise Program,Joint Mobilizations,Manual Interventions Therapy,Neuromuscular Re-education,Orthotic/Prosthetic Management,Patient/Caregiver Education,Self-Care/Home Management,Soft Tissue Mobilization,Taping,Therapeutic Activities,Therapeutic Exercises Modalities Cold Pack/Ice Massage,Electric Stimulation,Hot Packs, Ultrasound Next Visit Focus/Plan Next Note Type Treatment Note Next Visit Plan PRN US, ice massage as indicated. POC: further posterior chain strengthening. Recheck progressed #5 TB resistance to LUE HEP in standing.
--- NOTE | 2025-09-09 15:15 | PT.OTN ---
Current Diagnoses Pain in left elbow (09/14/25) Lateral epicondylitis, left elbow (09/14/25) Physical Therapy Treatment Note PT OP: Cervical/Upper Extremity Start: 07/22/25 13:30 Freq: Status: Active Protocol: Document 09/14/25 12:00 SP (Rec: 09/09/25 15:20 SP [id number]) Out-Patient Physical Therapy Visit Information Visit Information Visit Type Treatment Note Visit Note SPTA Maria Del Rosario assisted with some ther ex instruction to support BOILER TUBE BLOWER, with pt permission and under direct supervision and some instruction of BOILER TUBE BLOWER Franco. BOILER TUBE BLOWER cued SPTA good to progress shovel oiler strength activities in position pt is used to doing if tolerated. Visit Start Time 14:31 Visit Stop Time 15:15 Visit Number 11 Number of BOILER TUBE BLOWER Visits 2 Progress Note Due 09/23/25 OP-PT Subjective Patient Comments Patient Comments Pt reports not needing to wear her Lateral epicondyle strap on her the Ktaping didn't hold as well and started to get irritating to skin aft 2 days so took off. She did well with HEP using purple TB with no irritation reported, just good tiring effort. She states the Ktaping does help the extensors feel more supported. Education cues during manual for self support home STMs rolling vs sustined pressure MWM wrist AROM felt same benefits. Will assess if can go up in resistance next tx with shovel oiler and OH activities. Therapeutic Exercises Sitting Exercises tricep extension Sitting Exercise over head press with tricep ext Name Resistance 2. 2lbs Reasult ball Equipment Used front mirror Reps/Minutes 10 Comments standing Wrist sup/pron Sitting Exercise supination and pronation (standing 09/07/25) declined Name HO Side left Resistance TB #5 purple Reps/Minutes 10 each Comments cues arm at side con/eccentric, little mid forearm tendon roll but no pain Wrist flex/ext Sitting Exercise flex and ext (standing 09/07/25) declined HO Name Side left Resistance TB #5 purple Reps/Minutes 10x each Comments no pain, cues arm at side con/eccentric flex and ext Standing Exercises Wall Pushup Standing Exercise 1. Goal Post 2. Minnie- added to HEP declined HO Name Side bilateral Resistance AROM Reps/Minutes 10 reps each Comments ed up to her incline performs. Wrist stretch Standing Exercise Flexion, Extension arm in front Name Side left Reps/Minutes 15 sec hold Over Head Press Standing Exercise trialed in PT: bicep curl <> over head press Name Side left Resistance 3.3 med ball Equipment Used front mirror Reps/Minutes 2x 10 rep Shoulder IR Standing Exercise review Name Side left Resistance TB #5 purple Reps/Minutes 2x10 Comments cued neutral wrist, tall posture with head up, effort to belly Shoulder ER Standing Exercise review Name Side left Resistance TB #5 purple Reps/Minutes 2x10 Comments cued neutral wrist Elbow ext Standing Exercise reviewed HEP Name Side left Resistance purple TB #5 anchored high Reps/Minutes 2x10 reps Comments cued tall posture, little quivering return bicep & tricep Manual Therapy Treatment Consent Patient gave verbal Yes consent for manual treatment Soft Tissue Mobilization forearm Body Location Forearm extensors proximal and along radial shaft, CET Body Position seated Comments gentle STMs strumming and sustained pressure with MWM wrist flex/ext/pron/sup Taping Ktape Body Location 2 taped strips Treatment Focus Compression of forearm extensors & CETs Type of Tape ktape Skin Inspection intact, normal color and texture. Comments 1. L lateral supracondular ridge of distal humerus, inferior pull along shaft and ended at anterior distal radius 2. L medial supracondular ridge of distal humerus, inferior pull to anterior proximal radial head *30% tension stretch of tape Ultrasound Therapy Treatment Left Elbow Patient Position Sitting Coupling Medium Ultrasound Gel Applicator Size (cm2 2 ) Frequency Setting ( 1 mHz) Mode Setting Pulsed Duty Cycle 50 Intensity Setting (w 1.0 /cm2) Comments reports little tingling in into dorsal hand today at 7. 5 min so stopped, Next tx return to 3mHz at 1.2 w/cm2. Physical Therapy Assessment Goals 2 Impairment Lifting Impairment Pt unable to lift and grasp objects in LUE alone without assist from RUE or dropping objects Short Term Goal (STG Pt will improve L shovel oiler strength from 62# to at least 72 ) # in order to improve LUE function. 08/24/25: 75#, goal met STG Duration goal met Senior Living Goal (LTG) Pt will demonstrate lifting 10lb dumbbell off shoulder height level shelf 10x3 with LUE without dropping with pain no greater than 2/10. 08/24/25: still need to use 10 lbs 09/07/25: can hold her 5 lb jar rice approx across room but not further before can't maintain shovel oiler downward to floor directioning. LTG Duration 10/14/25 progressing 09/07/25 1 Impairment Quick Dash Upper Extremity Impairment On eval: 25= 31.8% impairment Senior Living Goal (LTG) Pt will score no greater than 5% disability on Quick Dash Upper Extremity in order to improve functional mobility and full use of LUE. 08/24/25: 23+ 27% impairment, improved LTG Duration 10/14/25 Assessment Summary Assessment Pt good response to manual this tx with more mobility felt in L elbow. But the ultrasound caused little tingling in forearm and fingers so stopped. Will adjust setting to 3mHz at 1.2 w/cm2 next tx. She is improving in strengthening progression full L UE with increased resistance and allowable weighted shovel oiler this tx with no adverse effects. She reported the ktaping was better secured today to provide support feels need. No adverse effects to initiated weighted over head activities with wider shovel oiler to give confidence putting away items on higher shelves with strength support. Physical Therapy Plan Frequency and Duration Frequency of 1-2x/wk Treatment Duration of 12 treatment (weeks) Plan of Care Start 07/22/25 Date Plan of Care End 10/14/25 Date Therapeutic Interventions Therapeutic Home Exercise Program,Joint Mobilizations,Manual Interventions Therapy,Neuromuscular Re-education,Orthotic/Prosthetic Management,Patient/Caregiver Education,Self-Care/Home Management,Soft Tissue Mobilization,Taping,Therapeutic Activities,Therapeutic Exercises Modalities Cold Pack/Ice Massage,Electric Stimulation,Hot Packs, Ultrasound Next Visit Focus/Plan Next Note Type Progress Note Next Visit Plan PT to complete PN next tx 09/14. PRN US, ice massage as indicated. POC: further posterior chain strengthening . Recheck progressed #5 TB resistance to LUE HEP in standing.
--- NOTE | 2025-09-09 15:15 | PT.OTN ---
Current Diagnoses Pain in left elbow (09/09/25) Lateral epicondylitis, left elbow (09/09/25) Physical Therapy Treatment Note PT OP: Cervical/Upper Extremity Start: 07/22/25 13:30 Freq: Status: Active Protocol: Document 09/09/25 14:31 SP (Rec: 09/09/25 15:20 SP [id number]) Out-Patient Physical Therapy Visit Information Visit Information Visit Type Treatment Note Visit Note SPTA Maria Del Rosario assisted with some ther ex instruction to support SUPERVISOR RIDE ASSEMBLY, with pt permission and under direct supervision and some instruction of SUPERVISOR RIDE ASSEMBLY Franco. SUPERVISOR RIDE ASSEMBLY cued SPTA good to progress motorcycle maker strength activities in position pt is used to doing if tolerated. Visit Start Time 14:31 Visit Stop Time 15:15 Visit Number 11 Number of SUPERVISOR RIDE ASSEMBLY Visits 2 Progress Note Due 09/23/25 OP-PT Subjective Patient Comments Patient Comments Pt reports not needing to wear her Lateral epicondyle strap on her the Ktaping didn't hold as well and started to get irritating to skin aft 2 days so took off. She did well with HEP using purple TB with no irritation reported, just good tiring effort. She states the Ktaping does help the extensors feel more supported. Education cues during manual for self support home STMs rolling vs sustined pressure MWM wrist AROM felt same benefits. Will assess if can go up in resistance next tx with motorcycle maker and OH activities. Therapeutic Exercises Sitting Exercises tricep extension Sitting Exercise over head press with tricep ext Name Resistance 2. 2lbs Hoods ball Equipment Used front mirror Reps/Minutes 10 Comments standing Wrist sup/pron Sitting Exercise supination and pronation (standing 09/07/25) declined Name HO Side left Resistance TB #5 purple Reps/Minutes 10 each Comments cues arm at side con/eccentric, little mid forearm tendon roll but no pain Wrist flex/ext Sitting Exercise flex and ext (standing 09/07/25) declined HO Name Side left Resistance TB #5 purple Reps/Minutes 10x each Comments no pain, cues arm at side con/eccentric flex and ext Standing Exercises Wall Pushup Standing Exercise 1. Goal Post 2. Minnie- added to HEP declined HO Name Side bilateral Resistance AROM Reps/Minutes 10 reps each Comments ed up to her incline performs. Wrist stretch Standing Exercise Flexion, Extension arm in front Name Side left Reps/Minutes 15 sec hold Over Head Press Standing Exercise trialed in PT: bicep curl <> over head press Name Side left Resistance 3.3 med ball Equipment Used front mirror Reps/Minutes 2x 10 rep Shoulder IR Standing Exercise review Name Side left Resistance TB #5 purple Reps/Minutes 2x10 Comments cued neutral wrist, tall posture with head up, effort to belly Shoulder ER Standing Exercise review Name Side left Resistance TB #5 purple Reps/Minutes 2x10 Comments cued neutral wrist Elbow ext Standing Exercise reviewed HEP Name Side left Resistance purple TB #5 anchored high Reps/Minutes 2x10 reps Comments cued tall posture, little quivering return bicep & tricep Manual Therapy Treatment Consent Patient gave verbal Yes consent for manual treatment Soft Tissue Mobilization forearm Body Location Forearm extensors proximal and along radial shaft, CET Body Position seated Comments gentle STMs strumming and sustained pressure with MWM wrist flex/ext/pron/sup Taping Ktape Body Location 2 taped strips Treatment Focus decompression of forearm extensors & CETs Type of Tape ktape Skin Inspection intact, normal color and texture. Comments 1. L lateral supracondular ridge of distal humerus, inferior pull along shaft and ended at anterior distal radius 2. L medial supracondular ridge of distal humerus, inferior pull to anterior proximal radial head Ultrasound Therapy Treatment Left Elbow Patient Position Sitting Coupling Medium Ultrasound Gel Applicator Size (cm2 2 ) Frequency Setting ( 1 mHz) Mode Setting Pulsed Duty Cycle 50 Intensity Setting (w 1.0 /cm2) Comments reports little tingling in into dorsal hand today at 7. 5 min so stopped, Next tx return to 3mHz at 1.2 w/cm2. Physical Therapy Assessment Goals 2 Impairment Lifting Impairment Pt unable to lift and grasp objects in LUE alone without assist from RUE or dropping objects Short Term Goal (STG Pt will improve L motorcycle maker strength from 62# to at least 72 ) # in order to improve LUE function. 08/24/25: 75#, goal met STG Duration goal met [employer] Nutrition Services Supervisor Goal (LTG) Pt will demonstrate lifting 10lb dumbbell off shoulder height level shelf 10x3 with LUE without dropping with pain no greater than 2/10. 08/24/25: still need to use 10 lbs 09/07/25: can hold her 5 lb jar rice approx across room but not further before can't maintain motorcycle maker downward to floor directioning. LTG Duration 10/14/25 progressing 09/07/25 1 Impairment Quick Dash Upper Extremity Impairment On eval: 25= 31.8% impairment Nursing Home Goal (LTG) Pt will score no greater than 5% disability on Quick Dash Upper Extremity in order to improve functional mobility and full use of LUE. 08/24/25: 23+ 27% impairment, improved LTG Duration 10/14/25 Assessment Summary Assessment Pt improving not neede Physical Therapy Plan Frequency and Duration Frequency of 1-2x/wk Treatment Duration of 12 treatment (weeks) Plan of Care Start 07/22/25 Date Plan of Care End 10/14/25 Date Therapeutic Interventions Therapeutic Home Exercise Program,Joint Mobilizations,Manual Interventions Therapy,Neuromuscular Re-education,Orthotic/Prosthetic Management,Patient/Caregiver Education,Self-Care/Home Management,Soft Tissue Mobilization,Taping,Therapeutic Activities,Therapeutic Exercises Modalities Cold Pack/Ice Massage,Electric Stimulation,Hot Packs, Ultrasound Next Visit Focus/Plan Next Note Type Progress Note Next Visit Plan PT to complete PN next tx 09/14. PRN US, ice massage as indicated. POC: further posterior chain strengthening . Recheck progressed #5 TB resistance to LUE HEP in standing.
--- NOTE | 2025-09-14 11:27 | PT.OPPN ---
Current Diagnoses Pain in left elbow (09/14/25) Lateral epicondylitis, left elbow (09/14/25) Physical Therapy Progress Note PT OP: Cervical/Upper Extremity Start: 07/22/25 13:30 Freq: Status: Active Protocol: Document 09/14/25 10:41 SAK (Rec: 09/14/25 11:27 SAK Laptop) Out-Patient Physical Therapy Visit Information Visit Information Visit Type Progress Note Visit Note Had to leave 10 min early to take daughter to doctor's appt. Visit Start Time 10:48 Visit Stop Time 11:20 Visit Number 12 Number of COUNTER STACKER Visits 0 Progress Note Due 10/14/25 OP-PT Subjective Patient Comments Patient Comments Using L5 TB and green putty with good tolerance. Skin irritated from tape, requests no KT tape today. Will wear brace as needed. Therapeutic Exercises Standing Exercises Wall Pushup Standing Exercise 1. Goal Post 2. Minnie- added to HEP declined HO Name Side bilateral Resistance AROM Reps/Minutes 5 reps each (2 sets of 10 at home) Comments ed up to her incline performs. Wrist stretch Standing Exercise Flexion, Extension arm in front Name Side left Reps/Minutes 15 sec hold Over Head Press Standing Exercise trialed in PT: bicep curl <> over head press Name Side left Resistance 3.3 med ball Equipment Used front mirror Reps/Minutes 2x 10 rep Shoulder IR Standing Exercise review Name Side left Resistance TB #5 purple Reps/Minutes 2x10 Comments cued neutral wrist, tall posture with head up, effort to belly Shoulder ER Standing Exercise review Name Side left Resistance TB #5 purple Reps/Minutes 2x10 Comments cued neutral wrist Elbow ext Standing Exercise reviewed HEP Name Side left Resistance purple TB #5 anchored high Reps/Minutes 2x10 reps Comments cued tall posture, little quivering return bicep & tricep Manual Therapy Treatment Soft Tissue Mobilization forearm Body Location Forearm extensors proximal and along radial shaft, CET Body Position seated Comments gentle STMs strumming and sustained pressure with MWM wrist flex/ext/pron/sup Physical Therapy Assessment Impairments Impairments Activity Tolerance,Functional Activities,Pain,ROM,Soft Tissue Mobility,Strength Goals 2 Impairment Lifting Impairment Pt unable to lift and grasp objects in LUE alone without assist from RUE or dropping objects Short Term Goal (STG Pt will improve L nuclear fuel enrichment technician strength from 62# to at least 72 ) # in order to improve LUE function. 08/24/25: 75#, goal met STG Duration goal met [facility] Goal (LTG) Pt will demonstrate lifting 10lb dumbbell off shoulder height level shelf 10x3 with LUE without dropping with pain no greater than 2/10. 08/24/25: still need to use 10 lbs 09/07/25: can hold her 5 lb jar rice approx across room but not further before can't maintain nuclear fuel enrichment technician downward to floor directioning. 09/14/25: goal progress but not met. Trial 10 lbs but very difficult, difficult to maintain nuclear fuel enrichment technician of even 5 lbs at side due to weakness LTG Duration 10/14/25 1 Impairment Quick Dash Upper Extremity Impairment On eval: 25= 31.8% impairment [facility] Goal (LTG) Pt will score no greater than 5% disability on Quick Dash Upper Extremity in order to improve functional mobility and full use of LUE. 08/24/25: 23+ 27% impairment, improved 09/14/25: 29% impairment LTG Duration 10/14/25 Progress Towards Goals Progress Towards Progressing Toward Goals Goals Assessment Summary Assessment Pain variable 3-4, not constant, can still go up as high as a 6/10. Improving activity tolerance but still some weakness with functional tasks. Benefits from KT tape but had skin irritation and requested no taping today. Good tolerance for increase in resistance last session. Physical Therapy Plan Frequency and Duration Frequency of 1-2x/wk Treatment Duration of 12 treatment (weeks) Plan of Care Start 07/22/25 Date Plan of Care End 10/14/25 Date Therapeutic Interventions Therapeutic Home Exercise Program,Joint Mobilizations,Manual Interventions Therapy,Neuromuscular Re-education,Orthotic/Prosthetic Management,Patient/Caregiver Education,Self-Care/Home Management,Soft Tissue Mobilization,Taping,Therapeutic Activities,Therapeutic Exercises Modalities Cold Pack/Ice Massage,Electric Stimulation,Hot Packs, Ultrasound Next Visit Focus/Plan Next Note Type Treatment Note Next Visit Plan Continue strengthening posterior chain, elbow, wrist. Manual treatment, functional retraining.
--- NOTE | 2025-09-21 13:42 | PT.OTN ---
Current Diagnoses Pain in left elbow (09/21/25) Lateral epicondylitis, left elbow (09/21/25) Physical Therapy Treatment Note PT OP: Cervical/Upper Extremity Start: 07/22/25 13:30 Freq: Status: Active Protocol: Document 09/21/25 13:01 SP (Rec: 09/21/25 13:49 SP [id number]) Out-Patient Physical Therapy Visit Information Visit Information Visit Type Treatment Note Visit Start Time 13:02 Visit Stop Time 13:42 Visit Number 13 Number of PRESS MAINTAINER Visits 1 Progress Note Due 10/14/25 OP-PT Subjective Patient Comments Patient Comments Pt reports not having pain in L elbow anymore, now just sore in upper bicep. She has only used her elbow brace for L elbow since last tx 09/14. Pt reports has 1 more visit and thinks mostly back to normal activity so think next appt can be her last. Hand Transonic Engineer/Pinch Strength Hand Strength Right Transonic Engineer (lbs) 88 Comments 88, 85, 86 Left Transonic Engineer (lbs) 78 Comments 78,61,79 pain free, average 62 Cardio Equipment Upper Body Ergometer (UBE) Duration (Minutes) 6 RPM 60 Seat Position 11 Height 3 Other 30 sec f/b alternating Therapeutic Exercises Sitting Exercises Elbow flex Sitting Exercise Bicep Curl (standing- 3 way pronated/supinated/neutral) Name - declined HO Side left Resistance 5#DB Equipment Used front of mirror Reps/Minutes 10 reps each Comments good form front mirror Wrist sup/pron Sitting Exercise supination and pronation (standing) declined HO Name Side left Resistance TB #5 purple Reps/Minutes 10 each Comments cues arm at side con/eccentric, little mid forearm tendon roll but no pain Wrist flex/ext Sitting Exercise flex, ext, RD, UD (standing) declined HO Name Side left Resistance TB #5 purple Reps/Minutes 10x each Comments no pain, cues arm at side con/eccentric flex and ext Standing Exercises Wall Pushup Standing Exercise Incline table push up Name Side bilateral Resistance AROM Reps/Minutes 10 reps Comments ed tolerant range, good neutral spine Torch carry Standing Exercise Overhead carry Name Resistance 5.5lb med ball, 6.6 lb med ball Reps/Minutes 40 ft 1 lap each resistance Comments good upright midline postural alignment suitcase carry Standing Exercise walk across room/back Name Side left Resistance 1. 3.3 lbs med ball- wide machine lacer 2. 5.5 med ball Reps/Minutes 40 ft 1 lap Comments trialed 5.5 med ball but unable walk futher than 4 ft and back Over Head Press Standing Exercise over head press (shoulder height to over head) Name Side bilateral Resistance 1. 3.3 med ball 2. 10lb DB Equipment Used front mirror Reps/Minutes 1. 2x 10 rep 2. 4 reps (GOAL MET) Comments initially first 3 reps bicep and tricep quiver then went away & tiring Elbow ext Standing Exercise reviewed HEP Name Side left Resistance purple TB #5 anchored high Reps/Minutes 20 reps Comments Improved tall posture, little quivering return bicep & tricep Therapeutic Activity Therapeutic Activity body mechanics lifting Name crate plus med balls Reps/Minutes 8 Comments 1. lift from floor<>table (2 red, 1 black) 2. lifiting into cupboard over head (2 red, 1 black) 3. carrying walking up/down stairs (2 red, 1 black) 4. squat vs 1/2 kneel reaching wt items assimulate getting wet clothes out of front loading washer ( bottome shelf plinth in PT today)- individual 2 med balls, 2 5Lb DB Physical Therapy Assessment Goals 2 Impairment Lifting Impairment Pt unable to lift and grasp objects in LUE alone without assist from RUE or dropping objects Short Term Goal (STG Pt will improve L machine lacer strength from 62# to at least 72 ) # in order to improve LUE function. 08/24/25: 75#, goal met 09/21/25: L UE machine lacer 78lbs , R 88 lbs STG Duration goal met 08/24/35 but 09/21/25 still progressed Care Home Goal (LTG) Pt will demonstrate lifting 10lb dumbbell off shoulder height level shelf 10x3 with LUE without dropping with pain no greater than 2/10. 08/24/25: still need to use 10 lbs 09/07/25: can hold her 5 lb jar rice approx across room but not further before can't maintain machine lacer downward to floor directioning. 09/14/25: goal progress but not met. 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 08/24/25: 23+ 27% impairment, improved 09/14/25: 29% impairment LTG Duration 10/14/25 updated 09/14/25 Assessment Summary Assessment Pt making great gains in strength 88 lb machine lacer L, 78lb R. Able to lift 10lb weight over head to support getting items off her shelves and carrying assimulated weighted laundry basket. Pt was able to carry 6.6 lbs wide machine lacer walk across room 40 ft today, improvement from 3.3 lb only 10 ft 2 visits ago. She feels she is about back to prior activities. WIll assess HEP and bring back her Quick Dash and survey next visit, prep DC. Physical Therapy Plan Frequency and Duration Frequency of 1-2x/wk Treatment Duration of 12 treatment (weeks) Plan of Care Start 07/22/25 Date Plan of Care End 10/14/25 Date Therapeutic Interventions Therapeutic Home Exercise Program,Joint Mobilizations,Manual Interventions Therapy,Neuromuscular Re-education,Orthotic/Prosthetic Management,Patient/Caregiver Education,Self-Care/Home Management,Soft Tissue Mobilization,Taping,Therapeutic Activities,Therapeutic Exercises Modalities Cold Pack/Ice Massage,Electric Stimulation,Hot Packs, Ultrasound Next Visit Focus/Plan Next Note Type Discharge Summary Next Visit Plan Next visit PT will DC pt. Mostly back to PLOF and activities. POC: Continue strengthening posterior chain, elbow, wrist. Manual treatment, functional retraining.
--- NOTE | 2025-09-28 09:36 | PT.OPDS ---
Current Diagnoses Pain in left elbow (09/28/25) Lateral epicondylitis, left elbow (09/28/25) Visit Care Team Role Provider Type NAVID Velasco Family Provider Advanced Sleeping Car Porter Primary Care Provider Specialty: Medical Address: [address] [place] [address], [id number] Email: [email or web address] Alvarado [email or web address] Attending Provider Physician Referring Provider Specialty: Medical Address: [address] [place] [address], [id number] Email: Visit Number Visit Number 14 Discharge Summary PT OP: Cervical/Upper Extremity Start: 07/22/25 13:30 Freq: Status: Active Protocol: Document 09/28/25 09:06 [facility] (Rec: 09/28/25 09:09 [facility] L[facility]) Out-Patient Physical Therapy Visit Information Visit Information Visit Type Treatment Note Visit Start Time 09:03 Visit Stop Time 09:43 Visit Number 14 Progress Note Due 10/14/25 OP-PT Subjective Patient Comments Patient Comments Patient reports arm feeling good, compliant to HEP, can now tolerate green theraputty. Most soreness is in bicep, needs to get stronger. Therapeutic Exercises Supine Exercises goal post stretch Reps/Minutes 30 pec stretch Supine Exercise Name T, Y, I stretches Reps/Minutes 2x30 Prone Exercises I, T, Y Reps/Minutes 10x5 Self-Care/Home Management Treatment Education Patient Education Home Exercise Program,Pain Management Other Education supine chest opening importance Physical Therapy Assessment Goals 1 Impairment Quick Dash Upper Extremity Impairment On eval: 25= 31.8% impairment Land Appraiser Goal (LTG) Pt will score no greater than 5% disability on Quick Dash Upper Extremity in order to improve functional mobility and full use of LUE. 08/24/25: 23+ 27% impairment, improved 09/14/25: 29% impairment LTG Duration 10/14/25 updated 09/14/25 Progress Towards Goals Progress Towards Progressing Toward Goals Goals Assessment Summary Assessment Pt. doing well, all PT goals achieved. Patient independent and compliant to HEP. No further PT needs. Physical Therapy Plan Discharge Physical Therapy Discharge Reasons Goals Met
== END 2025-09-28 14:32 | disposition home or self-care (01) ==
LOC: PHYS 09:00
PROVIDERS: Family Provider Registered Nurse Diabetes Educator; PCP Registered Nurse Diabetes Educator; Referring Provider Chiropractor; Visit Provider Chiropractor
DX: M77.12 Lateral epicondylitis, left elbow (principal); M25.522 Pain in left elbow
CPT/HCPCS: 97035; 97110; 97140; 97162; 97530